=== PATIENT | female | born 1945 | race Caucasian/White ===

== ENCOUNTER 2020-04-14 09:56 | Outpatient (CLI) | payer MEDICARE, SELFPAY ==
--- NOTE | ~2020-04-14 | MM_ITS ---
EXAMINATION: MM screening [facility] BI w guillermo HISTORY: Screening mammogram TECHNIQUE: Craniocaudal and mediolateral oblique 3-D tomosynthesis images were obtained and synthetic 2-D images were generated. CAD analysis was submitted and interpreted. COMPARISON: The , 04/10/2018, 04/11/2017 BREAST PARENCHYMAL COMPOSITION: There are scattered areas of fibroglandular density. FINDINGS: There is no evidence of suspicious mass, calcification, or architectural distortion to sugg est malignancy in either breast. There has been no suspicious interval change. IMPRESSION: 1. No mammographic evidence of malignancy. 2. Recommend routine screening mammography in one year. BI-RADS Category 1: Negative Reviewed, dictated and finalized at location A.
== END 2020-04-14 09:57 | disposition home or self-care (01) ==
PROVIDERS: PCP Family Medicine; Visit Provider Obstetrics & Gynecology
DX: Z12.31 Encounter for screening mammogram for malignant neoplasm of breast (principal)
CPT/HCPCS: 77063; 77067

== ENCOUNTER 2021-04-18 09:30 | Outpatient (CLI) | payer MEDICARE, SELFPAY ==
--- NOTE | ~2021-04-18 | MM_ITS ---
EXAMINATION: MM screening [facility] BI w guillermo HISTORY: Screening TECHNIQUE: Craniocaudal and mediolateral oblique 3-D tomosynthesis images were obtained and synthetic 2-D images were generated. CAD analysis was submitted and interpreted. COMPARISON: Comparison to multiple prior studies sequentially, with oldest reviewed study dated 04/03. BREAST PARENCHYMAL COMPOSITION: There are scattered areas of fibroglandular density. FINDINGS: There is no evidence of suspicious mass, calcification, or architectural distortion to sugg est malignancy in either breast. There has been no suspicious interval change. IMPRESSION: 1. No mammographic evidence of malignancy. 2. Recommend routine screening mammography in one year. BI-RADS Category 1: Negative Reviewed, dictated and finalized at location A.
== END 2021-04-18 09:31 | disposition home or self-care (01) ==
PROVIDERS: PCP Physician Assistant; Visit Provider Obstetrics & Gynecology
DX: Z12.31 Encounter for screening mammogram for malignant neoplasm of breast (principal)
CPT/HCPCS: 77063; 77067

== ENCOUNTER 2022-06-21 08:15 | Outpatient (CLI) | payer MEDICARE, SELFPAY ==
--- NOTE | ~2022-06-21 | MM_ITS ---
EXAMINATION: MM screening [facility] w guillermo HISTORY: Screening TECHNIQUE: Craniocaudal and mediolateral oblique 3-D tomosynthesis images were obtained and synthetic 2-D images were generated. CAD analysis was submitted and interpreted. COMPARISON: Comparison to multiple prior studies sequentially, with oldest reviewed study dated 04/09. BREAST PARENCHYMAL COMPOSITION: There are scattered areas of fibroglandular density. FINDINGS: There is no evidence of suspicious mass, calcification, or architectural distortion to sugg est malignancy in either breast. There has been no suspicious interval change. IMPRESSION: 1. No mammographic evidence of malignancy. 2. Recommend routine screening mammography in one year. BI-RADS Category 1: Negative Reviewed, dictated and finalized at location A.
== END 2022-06-21 08:16 | disposition home or self-care (01) ==
PROVIDERS: PCP Family Medicine; Visit Provider Obstetrics & Gynecology
DX: Z12.31 Encounter for screening mammogram for malignant neoplasm of breast (principal)
CPT/HCPCS: 77063; 77067

== ENCOUNTER 2022-08-08 01:31 | Day surgery (SDC) | payer MEDICARE, SELFPAY ==
[2022-07-31 14:19] VITALS: BMI 34.4
--- NOTE | 2022-08-07 15:24 | PM.HPGS ---
History of Present Illness History of Present Illness Consent: Risks, benefits, and alternatives have been discussed and questions answered. Patient agrees to proceed with procedure. Chief complaint: Positive cologuard Narrative: Viry Lyons is a 76 year old female referred for colon cancer screening. She had a normal examination in 2002. It appears that a scheduled colonoscopy about 6 years ago was canceled, as she has been found to be in atrial fibrillation that morning. Review of Systems Review of Systems: All systems reviewed & are unremarkable except as noted in HPI and below PMFSH Past Medical History Medical History Afib History of cardioversion History of pacemaker Hyperlipidemia Hypertension Iron deficiency Vitamin B12 deficiency Surgical History Surgical History H/O prior ablation treatment History of appendectomy History of total knee replacement (TKR) Family History Family History Mother Hypertension Cerebrovascular accident Family history of pancreatic cancer Family history of primary malignant neoplasm of liver Father Acute myocardial infarction Social History Social History Smoking status: Never smoker Second hand tobacco smoke exposure: No Alcohol intake: current Drinks per week: 7 Alcohol use details: WINE Substance use: never Substance use type: does not use Living arrangements: with family Gender identity (if verbalized by the patient): Female Spiritual care concerns: No Agree to blood products: Yes Meds Home Medications and Allergies Home Medications Medication Instructions Recorded Confirmed Type cyanocobalamin (vitamin B-12) 1,000 mcg PO DAILY 07/14/19 07/31/22 History 1,000 mcg tablet rivaroxaban 20 mg tablet (Xarelto) 20 mg PO QPM 07/14/19 07/31/22 History metoprolol tartrate 25 mg tablet 25 mg PO BID 10/27/20 07/31/22 History ezetimibe 10 mg tablet (Zetia) 10 mg PO DAILY #90 tabs 05/07/22 07/31/22 Rx Calcium 600 + D(3) 1 tab-cap PO DAILY 07/31/22 07/31/22 History Juice Plus 1 dose PO DAILY 07/31/22 07/31/22 History lisinopril 40 mg tablet 40 mg PO DAILY 07/31/22 07/31/22 History Allergies Allergy/AdvReac Type Severity Reaction Status Date / Time No Known Allergies Allergy Verified 08/08/22 09:44 Exam Resp: Auscultation: clear to auscultation bilaterally Cardio: Rate: regular rate Rhythm: regular rhythm GI: GI Palp: Yes Soft to palpation and No Tenderness to palpation present (GI) Assessment and Plan Assessment and plan (1) Colon cancer screening: Code(s): Z12.11 - Encounter for screening for malignant neoplasm of colon Status: Acute Assessment and Plan: Colonoscopy with possible biopsy or polypectomy or cautery or injection of substances.
[2022-08-08 09:48] VITALS: BP 160/85; PULSE 85; RESP 20; TEMP 36.1; O2SAT 98; BMI 32.8
[2022-08-08] MEDS: LACTATED RINGERS 1,000 ML 150 ML IV CONT (09:51)
--- NOTE | 2022-08-08 10:03 | WPDANESEPPF ---
Anes - Initial Pre Proc Eval Procedure: Operation Date: 08/08/22 11:00 Proposed Procedures p Colonoscopy - Hudson Denis MD Date/Time: 08/08/22 10:03 Surgeon: Hudson Denis MD Pre Op Diagnosis: Positive cologuard Patient Data Age: 76 Gender: F Height: 1.63 m Weight: 86.7 kg Last Vital Signs Temp 36.1 C L 08/08/22 09:48 Pulse 85 08/08/22 09:48 Resp 20 08/08/22 09:48 BP 160/85 H 08/08/22 09:48 Pulse Ox 98 08/08/22 09:48 O2 Del Method Room Air 08/08/22 09:48 Allergies Allergy/AdvReac Type Severity Reaction Status Date / Time No Known Allergies Allergy Verified 08/08/22 09:44 Home Medications Medication Instructions Recorded Confirmed Type cyanocobalamin (vitamin B-12) 1,000 mcg PO DAILY 07/14/19 07/31/22 History 1,000 mcg tablet rivaroxaban 20 mg tablet (Xarelto) 20 mg PO QPM 07/14/19 07/31/22 History metoprolol tartrate 25 mg tablet 25 mg PO BID 10/27/20 07/31/22 History ezetimibe 10 mg tablet (Zetia) 10 mg PO DAILY #90 tabs 05/07/22 07/31/22 Rx Calcium 600 + D(3) 1 tab-cap PO DAILY 07/31/22 07/31/22 History Juice Plus 1 dose PO DAILY 07/31/22 07/31/22 History lisinopril 40 mg tablet 40 mg PO DAILY 07/31/22 07/31/22 History Patient hx anesthesia problems: none Family hx anesthesia problems: none Results Review: All pre-operative results and documents have been reviewed as part of the pre-operative evaluation. [facility] Past Medical History Medical History Afib History of cardioversion History of pacemaker Hyperlipidemia Hypertension Iron deficiency Vitamin B12 deficiency Surgical History Surgical History H/O prior ablation treatment History of appendectomy History of total knee replacement (TKR) Family History Family History Mother Hypertension Cerebrovascular accident Family history of pancreatic cancer Family history of primary malignant neoplasm of liver Father Acute myocardial infarction Social History Social History Smoking status: Never smoker Second hand tobacco smoke exposure: No Alcohol intake: current Drinks per week: 7 Alcohol use details: WINE Substance use: never Substance use type: does not use Living arrangements: with family Gender identity (if verbalized by the patient): Female Spiritual care concerns: No Agree to blood products: Yes Anes - Eval Final PreProcedure Day of Procedure 08/08/22 10:03 Patient weight: obese Heart: regular rate and rhythm Lungs: clear to auscultation Airway: Mallampati scale class II Neurological: other (alert) Last oral intake: >/= 8 hours ASA classification: III Emergent: no Anesthetic plan: proceed Anesthesia type and monitoring: general GIVS and standard monitoring Results Review: All pre-operative results and documents have been reviewed as part of the pre-operative evaluation. Informed Consent: The patient's anesthetic plan and its attendant risks and benefits were discussed with the patient/family/POA. Questions were solicited and answers provided to the satisfaction of the patient/family/POA.
[2022-08-08 11:21] VITALS: BP 112/58; PULSE 63; RESP 18; O2SAT 90
[2022-08-08 11:31] VITALS: BP 123/57; PULSE 61; RESP 18; O2SAT 96
[2022-08-08 11:51] VITALS: BP 137/77; PULSE 60; RESP 18; O2SAT 96
== END 2022-08-08 11:50 | disposition home or self-care (01) ==
PROVIDERS: PCP Family Medicine; Visit Provider Internal Medicine Gastroenterology
PROC: 0DJD8ZZ Inspection of Lower Intestinal Tract, Via Natural or Artificial Opening Endoscopic (ICD-10-PCS; CPT 45378; principal; 2022-08-08 11:00)
DX: Z12.11 Encounter for screening for malignant neoplasm of colon (principal); R19.5 Other fecal abnormalities; I10 Essential (primary) hypertension; E66.9 Obesity, unspecified; Z68.32 Body mass index [BMI] 32.0-32.9, adult
CPT/HCPCS: G0121; J2704; J7120

== ENCOUNTER 2022-09-01 14:08 | Emergency (ER) | payer MEDICARE, SELFPAY ==
--- NOTE | ~2022-09-01 | XR_ITS ---
EXAMINATION: XR knee LT 2V INDICATION: Left knee pain TECHNIQUE: Two views of the left knee are obtained. COMPARISON: None available FINDINGS: There are changes of left knee arthroplasty. There is an acute, traumatic, closed, oblique fracture of the distal femur just above the arthroplasty. The distal fracture fragment medially displ aced approximately 1.5 cm. There are 70 degrees of posterior angulation at the fracture site. A small knee joint effusion is present. IMPRESSION: 1. Acute oblique fracture of the distal femur just above the knee arthroplasty with medial displaceme nt of the distal fracture fragments and posterior angulation at the fracture site. Reviewed, dictated and finalized at location F. TY HUNTER IMPRESSION: 1. Acute oblique fracture of the distal femur just above the knee arthroplasty with medial displacement of the distal fracture fragments and posterior angulat ion at the fracture site.
--- NOTE | ~2022-09-01 | XR_ITS ---
EXAMINATION: XR femur LT min 2V INDICATION: Left leg pain TECHNIQUE: Two views of the left femur are obtained on four radiographs. COMPARISON: None available FINDINGS: There are changes of total knee arthroplasty. There is an oblique fracture of the distal fe moral shaft just above the arthroplasty. The distal fracture fragments are medially displaced approxi mately 15 mm. A knee joint effusion is present. There are 17 degrees of posterior angulation at the f racture site. Alignment of the hip is normal. IMPRESSION: 1. Acute oblique fracture of the distal femur just above the level of the arthroplasty with medial di splacement of the distal fracture fragments and posterior angulation at the fracture site. Reviewed, dictated and finalized at location F. TANCE ABUSE SPECIALIST IMPRESSION: 1. Acute oblique fracture of the distal femur just above the level of the arthr oplasty with medial displacement of the distal fracture fragments and posterior angulation at the fracture site.
[2022-09-01 13:42] VITALS: BP 177/58; PULSE 65; RESP 16; TEMP 37; O2SAT 100
--- NOTE | 2022-09-01 14:31 | ED.FALL ---
HPI - Fall General Chief Complaint: Fall Stated Complaint: FALL/ LLE PAIN Time Seen by Provider: 09/01/22 15:33 Source: patient and EMS Mode of arrival: EMS Limitations: no limitations History of Present Illness HPI Narrative: Patient is a 76-year-old female who presents the ED with report of left knee pain s/p fall. Patient reports she slipped on water in her bathroom and fell directly onto her left knee. She complained of significant pain to her left knee since then. She was unable to get off the ground or ambulate due to pain. EMS was called. Patient was given 4 mg morphine en route to the ED. Patient denies any other injuries. Denies head injury, LOC. Denies numbness, tingling. Patient has a history of previous knee replacements, both of which were performed > 15 yrs ago by retired or relocated orthopedic specialists. Patient is on Xarelto due to history of atrial fibrillation. She also has a pacemaker. Related Data Home Medications Medication Instructions Recorded Confirmed cyanocobalamin (vitamin B-12) 1,000 mcg PO DAILY 07/14/19 07/31/22 1,000 mcg tablet rivaroxaban 20 mg tablet (Xarelto) 20 mg PO QPM 07/14/19 07/31/22 metoprolol tartrate 25 mg tablet 25 mg PO BID 10/27/20 07/31/22 Calcium 600 + D(3) 1 tab-cap PO DAILY 07/31/22 07/31/22 Juice Plus 1 dose PO DAILY 07/31/22 07/31/22 lisinopril 40 mg tablet 40 mg PO DAILY 07/31/22 07/31/22 Allergies Allergy/AdvReac Type Severity Reaction Status Date / Time No Known Allergies Allergy Verified 09/01/22 13:45 Review of Systems Review of Systems: CONSTITUTIONAL: Denies fever, chills, or sweats. CARDIOVASCULAR: Denies chest pain. RESPIRATORY: Denies dyspnea. GASTROINTESTINAL: Denies abdominal pain, nausea, vomiting. MUSCULOSKELETAL: See HPI. NEUROLOGIC: Denies HI, LOC, headache, numbness, or weakness. All systems reviewed & are unremarkable except as noted in HPI and below PMFSH Past Medical History Medical History Afib History of cardioversion History of pacemaker Hyperlipidemia Hypertension Iron deficiency Vitamin B12 deficiency Surgical History Surgical History H/O prior ablation treatment History of appendectomy History of total knee replacement (TKR) Family History Family History Mother Hypertension Cerebrovascular accident Family history of pancreatic cancer Family history of primary malignant neoplasm of liver Father Acute myocardial infarction Social History Social History Smoking status: Never smoker Second hand tobacco smoke exposure: No Alcohol intake: current Drinks per week: 7 Alcohol use details: WINE Substance use: never Substance use type: does not use Gender identity (if verbalized by the patient): Female Spiritual care concerns: No Agree to blood products: Yes Exam Narrative: GENERAL: Well appearing, well-nourished, non-toxic, in no acute distress. HEAD: Normocephalic, atraumatic. NECK: Supple. No adenopathy, no masses. RESPIRATORY: Airway patent, respirations nonlabored. Clear to auscultation bilaterally, no rales, rhonchi, wheezing. CARDIOVASCULAR: Regular rate and rhythm without murmurs, rubs, or gallops. Pedal pulses 2+ and equal bilaterally. ABDOMINAL: Soft, nontender, nondistended, no hepatosplenomegaly. Normoactive BS. MUSCULOSKELETAL: Limited ROM of left lower extremity due to pain. Tenderness over distal femur, diffuse left knee joint. Mild amount of swelling present. Distal sensation intact. Good capillary refill. SKIN: Warm, dry, normal color. No rashes. NEURO: A&O X3. Speech clear. Cranial nerves II-XII grossly intact. No ataxic movements. PSYCHIATRIC: Appropriate mood and affect. Normal interaction. Course Consultations Consultation
--- NOTE | 2022-09-01 14:52 | ECG_ITS ---
Measurements Intervals [place] Rate: 59 P: W[place]: 0 QRS: 135 QRSD: 115 T: -28 QT: 468 QTc: 467 Interpretive Statements ELECTRONIC VENTRICULAR PACEMAKER BASELINE ARTIFACT- I, II, III, AVR, AVL, AVF, V1-V3 NO FURTHER INTERPRETATION IS POSSIBLE ATYPICAL ECG NO PREVIOUS ECG AVAILABLE FOR COMPARISON Electronically Signed On 09-01-2022 16:13:34 [employer] APPELLATE LAW CLERK by Aman Meier D.O.
[2022-09-01 15:24] LABS: Basophils Absolute Auto 0.1 K/mm3 (0.0-0.1); Basophils Percent Auto 0.5 % (0.2-1.2); Eosinophils Absolute Auto 0.1 K/mm3 (0-0.3); Eosinophils Percent Auto 0.8 % (0-4.4); Hematocrit 41.9 % (37.0-47.0); Hemoglobin 13.5 g/dL (12.0-15.0); Immature Granulocyte Absolute 0.05 K/mm3 (0.00-0.031); Immature Granulocyte Percent A 0.5 % (0-0.5); Lymphocytes Absolute Auto 0.73 K/mm3 (0.9-3.2); Lymphocytes Percent Auto 6.8 % (18.3-44.2); Mean Corpuscular HGB Conc 32.2 g/dl (32-36); Mean Corpuscular Hemoglobin 26.9 pg (26-34); Mean Corpuscular Volume 83.6 fl (80-100); Mean Platelet Volume 11.1 fl (7.4-10.4); Monocytes Absolute Auto 0.5 K/mm3 (0.1-0.6); Neutrophils Absolute Auto 9.3 K/mm3 (1.3-6.7); Neutrophils Percent Auto 86.4 % (45.5-73.1); Platelet Count Result 243 k/mm3 (150-375); Red Blood Count 5.01 M/mm3 (4.2-5.4); Red Cell Distribution Width 13.7 % (11.5-14.5); White Blood Count 10.8 K/mm3 (4.5-10.0)
[2022-09-01 15:32] LABS: Alanine Aminotransferase 18 U/L (6-35); Albumin Level 4.4 g/dL (3.5-5.1); Alkaline Phosphatase 141 U/L (38-126); Anion Gap 8 mmol/L (8-16); Aspartate Amino Transferase 24 U/L (14-36); Bilirubin,Total 1.2 mg/dL (0.2-1.3); Blood Urea Nitrogen 17 mg/dL (7-17); Calcium 8.9 mg/dL (8.4-10.2); Carbon Dioxide 23 mmol/L (22-30); Chloride 105 mmol/L (98-107); Estimated CRCL calculation 76 ml/min; Estimated Glomerular Filt Rate > 60; Glucose 115 mg/dL (65-110); Sodium 136 mmol/L (137-145)
[2022-09-01 15:34] LABS: INR 1.3; Prothrombin Time 15.4 Seconds (11.1-14.7)
[2022-09-01 15:35] LABS: Partial Thromboplastin Time 28.1 SECONDS (22.3-36.8)
[2022-09-01 15:54] VITALS: BP 168/86; PULSE 70; RESP 16; O2SAT 98
[2022-09-01] MEDS: MORPHINE SULFATE (*CRX) 4 MG/ML INJ IV PUSH (15:58)
[2022-09-01] MEDS: ONDANSETRON INJ 4 MG/2 ML VIAL IV PUSH (15:58)
== END 2022-09-01 16:36 | disposition short-term general hospital (02) ==
PROVIDERS: Physician Assistant; Emergency Provider Emergency Medicine; PCP Family Medicine
DX: S72.492A Other fracture of lower end of left femur, initial encounter for closed fracture (principal); M97.12XA Periprosthetic fracture around internal prosthetic left knee joint, initial encounter; I48.91 Unspecified atrial fibrillation; E78.5 Hyperlipidemia, unspecified; I10 Essential (primary) hypertension; E61.1 Iron deficiency; E53.8 Deficiency of other specified B group vitamins; Z95.0 Presence of cardiac pacemaker; Z96.653 Presence of artificial knee joint, bilateral; Z79.01 Long term (current) use of anticoagulants; W01.0XXA Fall on same level from slipping, tripping and stumbling without subsequent striking against object, initial encounter
CPT/HCPCS: 36415; 73552; 73560; 80053; 85025; 85610; 85730; 93005; 96374; 96375; 99285; J2270; J2405

== ENCOUNTER 2023-06-24 08:17 | Outpatient (CLI) | payer MEDICARE, SELFPAY ==
--- NOTE | ~2023-06-24 | MM_ITS ---
EXAMINATION: MM screening [facility] w guillermo HISTORY: Screening TECHNIQUE: Craniocaudal and mediolateral oblique 3-D tomosynthesis images were obtained and synthetic 2-D images were generated. CAD analysis was submitted and interpreted. COMPARISON: Comparison to multiple prior studies sequentially, with oldest reviewed study dated 04/10. BREAST PARENCHYMAL COMPOSITION: There are scattered areas of fibroglandular density. FINDINGS: There is no evidence of suspicious mass, calcification, or architectural distortion to sugg est malignancy in either breast. There has been no suspicious interval change. IMPRESSION: 1. No mammographic evidence of malignancy. 2. Recommend routine screening mammography in one year. BI-RADS Category 1: Negative Reviewed, dictated and finalized at location A. ORT GUIDE
== END 2023-06-24 08:18 | disposition home or self-care (01) ==
PROVIDERS: PCP Family Medicine; Visit Provider Family Medicine
DX: Z12.31 Encounter for screening mammogram for malignant neoplasm of breast (principal)
CPT/HCPCS: 77063; 77067

== ENCOUNTER 2023-09-24 18:03 | Emergency (ER) | payer MEDICARE, SELFPAY ==
[2023-09-24 18:18] VITALS: BP 170/76; PULSE 67; RESP 20; TEMP 36.2; O2SAT 100
--- NOTE | 2023-09-24 19:30 | ED.GENADULT ---
HPI - General Adult General Chief complaint: Ear Stated complaint: right ear pain Time Seen by Provider: 09/24/23 19:30 Source: patient, RN notes reviewed and old records reviewed Mode of arrival: ambulatory Limitations: no limitations History of Present Illness HPI narrative: 77-year-old female presents to the [facility] with complaints of right ear pain since Saturday or Saturday. Reports taking Tylenol. Wears hearing aids but due to the discomfort unable to put them in Onset (ago): day(s) (2-3) Treatments prior to arrival: other (Tylenol) Related Data Home Medications Medication Instructions Recorded Confirmed cyanocobalamin (vitamin B-12) 1,000 mcg PO DAILY 07/14/19 09/24/23 1,000 mcg tablet rivaroxaban 20 mg tablet (Xarelto) 20 mg PO QPM 07/14/19 09/24/23 metoprolol tartrate 25 mg tablet 25 mg PO BID 10/27/20 09/24/23 Calcium 600 + D(3) 1 tab-cap PO DAILY 07/31/22 09/24/23 Allergies Allergy/AdvReac Type Severity Reaction Status Date / Time No Known Allergies Allergy Verified 09/24/23 19:02 Review of Systems Review of Systems: All systems reviewed & are unremarkable except as noted in HPI and below Constitutional: Constitutional: Reports no additional constitutional complaints Eyes: Eyes: Reports no additional eye complaints ENT: Reports as per HPI and Reports otalgia Cardiovascular: Cardiovascular: Reports no additional cardiovascular complaints, Denies chest pain and Denies dyspnea Respiratory: Respiratory: Reports no additional respiratory complaints, Denies chest congestion, Denies cough and Denies dyspnea Gastrointestinal: Gastrointestinal: Reports no additional gastrointestinal complaints, Denies abdominal pain, Denies nausea and Denies vomiting Musculoskeletal: Musculoskeletal: Reports no additional musculoskeletal complaints Integumentary/Breasts: Skin/Breast: Reports system reviewed and no additional complaints, except as docu Neurologic: Reports system reviewed and no additional complaints, except as documented Psychiatric: Psychiatric: Reports no additional psychiatric complaints Allergic/Immunologic: Allergic/Immunologic: Reports no additional allergic/immunologic complaints PMFSH Past Medical History Medical History Afib Femur fracture, left History of cardioversion History of pacemaker Hyperlipidemia Hypertension Iron deficiency Vitamin B12 deficiency Surgical History Surgical History H/O prior ablation treatment History of appendectomy History of total knee replacement (TKR) Family History Family History Mother Hypertension Cerebrovascular accident Family history of pancreatic cancer Family history of primary malignant neoplasm of liver Father Acute myocardial infarction Social History Social History Smoking status: Never smoker Second hand tobacco smoke exposure: No Alcohol intake: current Drinks per week: 7 Alcohol use details: WINE Substance use: never Substance use type: does not use Living arrangements: with family Occupation/Education: retired Gender identity (if verbalized by the patient): Female Spiritual care concerns: No Agree to blood products: Yes Comments At the time of my signature, I reviewed and agree with the nursing past medical, surgical, social, and family history. There is no relevant family history pertinent to the patient complaint. Exam Const: General: cooperative, healthy appearing, comfortable, no acute distress, well developed, alert and well nourished Nutritional Appearance: well nourished Orientation/consciousness: patient oriented x3 Limitations: no limitations HENMT: Head: normal to inspection Ears: hearing grossly normal bilaterally, external ears normal, TM's normal bilate
== END 2023-09-24 19:43 | disposition home or self-care (01) ==
PROVIDERS: Emergency Provider Nurse Practitioner; PCP Family Medicine
DX: S00.411A Abrasion of right ear, initial encounter (principal); E78.5 Hyperlipidemia, unspecified; I10 Essential (primary) hypertension; I48.91 Unspecified atrial fibrillation; Z79.01 Long term (current) use of anticoagulants; X58.XXXA Exposure to other specified factors, initial encounter
CPT/HCPCS: 99213; G0463

== ENCOUNTER 2023-11-11 15:00 | Outpatient (CLI) | payer MEDICARE, SELFPAY ==
--- NOTE | ~2023-11-11 | DEXA_ITS ---
Bone Density Report Name: LAUREN STANLEY Age: 78 Sex: Female Ethnicity: White Date of : 1945 Indication: postmenopausal; screening for osteoporosis; height loss; Referring Provider: JEREMI CORDOBA Study: Bone densitometry was performed. Exam Date: November 11, 2023 Accession number: [id number] Bone Density: Region BMD T-score Z-score Classification AP Spine(L1-L4) 1.016 -0.3 2.2 Normal Femoral Neck (Right) 0.704 -1.3 0.8 Osteopenia Total Hip (Right) 0.821 -1.0 0.8 Normal World Health Organization criteria for BMD impression classify patients as: Normal (T-score at or above -1.0), Osteopenia (T-score between -1.0 and -2.5), or Osteoporosis (T-score at or below -2.5). 10-year Fracture Risk(1): Major Osteoporotic Fracture 11% Hip Fracture 1.9% Reported Risk Factors: [place] (), Neck BMD=0.704, BMI=32.9 (1) FRAX(R) Version 3.08. Fracture probability calculated for an untreated patient. Fracture probability may be lower if the patient has received treatment. Clinical Information Provided by Patient: Has used the following medications: Vitamin D, Calcium Patient maximum height was 64 Menopause Age: 47 Does not regularly consume dairy products Drinks caffeinated beverages Onset of menses at age 14 Number of children 2 Impression: The patient has low bone mass, based on the Right Femoral Neck T-score. The patient has an estimated ten-year risk of hip fracture of 1.9% and an estimated ten-year risk of major fracture of 11%, based on the WHO FRAX algorithm. Discussion: BONE DENSITY IS LOW AT ONE OR MORE SKELETAL SITES. This patient's lowest T-score is low at one or more skeletal sites. It meets the World Health Organization's (WHO) criteria for ?low bone mass? (T-score between -1.0 and -2.5). The patient's 10-year risk of fracture as calculated by FRAX is less than the threshold where pharmacological therapy is recommended by the National Osteoporosis Foundation (NOF). However, all treatment decisions require clinical judgment and consideration of individual patient factors, including patient preferences, comorbidities, previous drug use, risk factors not captured in the FRAX model (e.g., frailty, falls, vitamin D deficiency, increased bone turnover, interval significant decline in bone density) and possible under or overestimation of fracture risk by FRAX. The patient should follow a healthful lifestyle (good nutrition with adequate calcium and vitamin D, and appropriate weight-bearing exercise). Follow-Up: Consider repeating this study in 2 to 3 years to reassess this patient's status, or sooner if there is some new clinical indication. Reported by: CORINE on 11/12/2023 3:28:00 PM. Reviewed, dictated and finalized at location AAdri ROSS
== END 2023-11-11 15:01 | disposition home or self-care (01) ==
LOC: ANHIMG 15:02
PROVIDERS: PCP Family Medicine; Visit Provider Physician Assistant
DX: Z78.0 Asymptomatic menopausal state (principal); M85.851 Other specified disorders of bone density and structure, right thigh
CPT/HCPCS: 77080

== ENCOUNTER 2024-06-25 07:19 | Outpatient (CLI) | payer MEDICARE, SELFPAY ==
--- NOTE | ~2024-06-25 | MM_ITS ---
EXAMINATION: MM screening [facility] w guillermo HISTORY: Screening TECHNIQUE: Craniocaudal and mediolateral oblique 3-D tomosynthesis images were obtained and synthetic 2-D images were generated. CAD analysis was submitted and interpreted. COMPARISON: Comparison to multiple prior studies sequentially, with oldest reviewed study dated 04/10. BREAST PARENCHYMAL COMPOSITION: Not dense: There are scattered areas of fibroglandular density. FINDINGS: There is no evidence of suspicious mass, calcification, or architectural distortion to sugg est malignancy in either breast. There has been no suspicious interval change. IMPRESSION: 1. No mammographic evidence of malignancy. 2. Recommend routine screening mammography in one year. BI-RADS Category 1: Negative Reviewed, dictated and finalized at location B. NOGRAPHY PROFESSOR
== END 2024-06-25 07:20 | disposition home or self-care (01) ==
LOC: ANHIMG 07:20
PROVIDERS: PCP Family Medicine; Visit Provider Family Medicine
DX: Z12.31 Encounter for screening mammogram for malignant neoplasm of breast (principal)
CPT/HCPCS: 77063; 77067

== ENCOUNTER 2025-01-12 14:28 | Observation (INO) | payer MEDICARE, SELFPAY ==
[2025-01-12] VITALS (15 sets, daily range): BP systolic 109–210; BP diastolic 51–96; PULSE 60–83; RESP 13–25; TEMP 37.2; O2SAT 81–100
--- NOTE | ~2025-01-12 | XR_ITS ---
XR chest 2V 01/12/2025 15:24 Indication: Shortness of breath and weakness Procedure: 2 view chest Comparison: 07/07/2015 Findings: Cardiomegaly. Pacemaker leads are in expected position. Mild pulmonary vascular congestion. No focal pneumonia, pleural effusion or pneumothorax. Impression: 1: Cardiomegaly with pulmonary vascular congestion. Reviewed, dictated and finalized at location A. Impression: 1: Cardiomegaly with pulmonary vascular congestion.
--- NOTE | ~2025-01-12 | CT_ITS ---
CT abdomen pelvis w con Ordering provider: Hugo Nieves MD History: 79 years Female with . poss gi bleed . Comparison: None. Technique: CT abdomen and pelvis with IV and without oral contrast. Automated exposure control and it erative reconstruction technique were employed. The dose-length product was 723.48 mGy-cm. 100 mL Omn ipaque 350 was given IV. Findings: VISUALIZED LOWER CHEST: Bilateral groundglass appearance seen in both lung bases which may indicate a telectasis versus pneumonia. Slight cardiomegaly. UPPER ABDOMINAL ORGANS: Liver: Hepatomegaly. She 3.7 cm hemangioma is seen in the left lobe of the liver. Hypodensity seen di stal to the hemangioma which may be fat infiltration. Gallbladder: Cholelithiasis. Spleen: Normal. Stomach/duodenum: Normal. Pancreas: Normal. Adrenals: Normal. Kidneys: Tiny cyst in the right kidney upper pole. Fullness of the right renal pelvis with no stones. PELVIC ORGANS: The bladder is underfilled. Retroverted uterus. BOWEL AND MESENTERY: Colon: No evidence of diverticulitis. Hyperdense material seen in the rectum on the left side of the colon which may represent blood. Colonoscopy is advised. Appendix is not demonstrated. Small Bowel: Normal. No obstruction. Peritoneum/mesentery: No free air or free fluid. No mesenteric lymphadenopathy. RETROPERITONEUM: Moderate atheromatous disease of the abdominal aorta. No retroperitoneal lymphaden opathy. MUSCULOSKELETAL: Superficial soft tissues: Anterior abdominal fat containing hernia seen in the upper abdomen. Otherwi se, The superficial soft tissues are normal. Bones: Age appropriate degenerative changes of the spine. Postoperative changes in the left femur. IMPRESSION: 1. Hepatomegaly with hemangioma of the liver. 2. Hyperdense material seen in the rectum and left side of the colon which may reflect blood or feca l material. Colonoscopy is advised. 3. No evidence of appendicitis, diverticulitis or intestinal obstruction. 4. Cholelithiasis. 5. Anterior abdominal fat containing hernia. Reviewed, dictated and finalized at location A. IMPRESSION: 1. Hepatomegaly with hemangioma of the liver. 2. Hyperdense material seen in the rectum and left side of the colon which may reflect blood or fecal material. Colonoscopy is advised. 3. No evidence of appendicitis, diverticulitis or intestinal obstruction. 4. Cholelithiasis. 5. Anterior abdominal fat containing hernia.
--- OUTSIDE RECORDS SUMMARY | 2025-01-12 14:31 | XMS_ITS | Referral Summary ---
Author Organization [facility] Address [address] [place] [address] Care Team Providers Care Shuttle Van Driver Name Role Phone Demi Gonzalez MD Primary Care Provider [phone] Encounters Date Type Department Care Team Description 12/07/2024 11:30 AM CDT Ancillary Procedure [facility] [address] [place] [address] Pacemaker (Primary Dx); CHB (complete heart block) (HCC) from Last 3 Months Allergies No known active allergies Medications ezetimibe (ZETIA) 10 mg tablet Take 1 tablet (10 mg total) by mouth daily Active lisinopriL (PRINIVIL,ZESTRI L) 40 mg tablet Take 1 tablet (40 mg total) by mouth daily Active Xarelto 20 mg tablet TAKE 1 TABLET BY MOUTH EVERY DAY 90 tablet 08/27/2024 Active Active Problems Problem Noted Date Diagnosed Date NSVT (nonsustained ventricular tachycardia) 03/20 Assessment & Plan (04/15/2023 12:14 PM CDT): Nonsustained ventricular tachycardia, lasting 6 seconds, detected by her device. Asymptomatic. I recommended that she have an echocardiogram to ensure the continued structural and functional normality of her heart. No additional therapy is necessary at this time. CHB (complete heart block) 04/15/2022 Atrial fibrillation 03/14/2021 Pacemaker 03/14/2021 Overview (03/14/2021): Medtronic Solara Quad BI-V pacemaker imp on 03/13/21 for Afib, s/p AV node ablation. Ponce Gilman Dyspnea 12/12/2018 Assessment & Plan (09/09/2019 2:07 PM TAPE LIBRARIAN): Improving with exercise No specific therapy needed Encouraged an exercise program to improve stamina and her functional capacity. Assessment & Plan (07/20/2019 2:51 PM TAPE LIBRARIAN): The differential diagnosis for dyspnea includes: - COPD - asthma - ILD - pulmonary hypertension - congestive heart failure - valvular heart disease - anemia - endocrinopathies - physical deconditioning - obesity Full PFT CT chest to exclude ILD given the interstitial infiltrates in the bases on CXR Assessment & Plan (12/12/2018 3:51 PM CDT): I recommended that the patient have an echocardiogram in order to ensure that her LV function has remained normal. The patient will follow-up with me in 6 months for an office visit and twelve- lead ECG. 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 We will continue the patient on the same dose and schedule. As long as the patient continues on this medication, an ECG should be performed at least every 6 months to monitor for toxicity. Assessment & Plan (04/04/2017 11:26 AM CDT): 12-lead ECG today does not demonstrate any changes that would prohibit continued use of sotalol. We will continue the patient on the same dose and schedule. As long as the patient continues on this medication, an ECG should be performed at least every 6 months to monitor for toxicity. S/P ablation of atrial fibrillation 02/24/2017 Anticoagulation management encounter 02/01/2017 Assessment & Plan (06/22/2020 2:10 PM TAPE LIBRARIAN): The patient has a [id number]-TWYm score of 3 (annualized risk of stroke 3%). I have therefore recommended that she remain anticoagulated for thromboprophylaxis. We will see the patient back 1 month post cardioversion. Assessment & Plan (12/15/2019 1:11 PM CDT): The patient has a [id number]-OXIs score of 3 (annualized risk of stroke 3%). I have therefore recommended that she remain anticoagulated for thromboprophylaxis. The patient will follow-up with me in 6 months for an office visit and twelve- lead ECG. Assessment & Plan (12/12/2018 3:52 PM CDT): The patient has a LYZ5OE8-HVTf score of 3 (annualized risk of stroke 3%). I have therefore recommended that she remain anticoagulated for thromboprophylaxis. Assessment & Plan (09/10/2018 2:06 PM TAPE LIBRARIAN): The patient has a MXT1MV2-SZBg score of 3 (annualized risk of stroke 3%). I have therefore recommended that she remain anticoagulated for thromboprophylaxis. The patient will follow-up with me in 6 months for an office visit and twelve- lead ECG. Assessment & Plan (08/05/2018 2:42 PM TAPE LIBRARIAN): The patient has a ADH9UW5-YRGn score of 3 (annualized risk of stroke 3%). I have therefore recommended that she remain anticoagulated for thromboprophylaxis. Assessment & Plan (03/08/2018 11:06 AM CDT): The patient has a NFY2NA5-LVCg score of 3 (annualized risk of stroke 3.2 %). I have therefore recommended that she remain anticoagulated for thromboprophylaxis. The patient will follow-up with me in 6 months for an office visit and twelve- lead ECG. Assessment & Plan (09/09/2017 12:39 PM TAPE LIBRARIAN): The patient has a NOX8EX6-VMXx score of 3 (annualized risk of stroke 3.2 %). I have therefore recommended that she remain anticoagulated for thromboprophylaxis. The patient will follow-up with me in 6 months for an office visit and twelve- lead ECG. Assessment & Plan (06/02/2017 2:56 PM CDT): The patient has a MWE0TE6-DJNv score of 3 (annualized risk of stroke 3.2 %). I have therefore recommended that she remain anticoagulated for thromboprophylaxis. The patient will follow-up with me in 6 months for an office visit and twelve- lead ECG. Assessment & Plan (04/04/2017 11:27 AM CDT): The patient has a ANQ1JE2-KKOo score of 3 (annualized risk of stroke 3.2 %). I have therefore recommended that she remain anticoagulated. The patient will follow-up with me in 3 months for an office visit and twelve- lead ECG. Assessment & Plan (02/24/2017 2:32 PM CDT): The patient has a HFK8KY5-XDTh score of 2 (annualized risk of stroke 2.2 %). I have therefore recommended that she remain anticoagulated for thromboprophylaxis. We will arrange follow-up 1 month following ablation. Assessment & Plan (02/01/2017 10:17 AM CDT): She currently remains anticoagulated with Xarelto 20 mg daily. She remains compliant with her anticoagulation. She denies any issues with bleeding or bruising. Encounter for monitoring sotalol therapy 017 Assessment & Plan (06/22/2020 2:08 PM TAPE LIBRARIAN): 12-lead ECG today does not demonstrate any changes that would prohibit continued use of sotalol. We will continue the patient on the same dose and schedule. As long as the patient continues on this medication, an ECG should be performed at least every 6 months to monitor for toxicity. Assessment & Plan (12/15/2019 1:12 PM CDT): The patient should have a 12 lead ECG when the current SARS-Cov-19 pandemic allows from a safety standpoint. For now, we will continue the patient on her same stable dose of sotalol. As long as the patient continues on this medication, an ECG should be performed at least every 6 months to monitor for toxicity. Assessment & Plan (12/12/2018 3:52 PM CDT): 12-lead ECG today does not demonstrate any changes that would prohibit continued use of sotalol. We will continue the patient on the same dose and schedule. As long as the patient continues on this medication, an ECG should be performed at least every 6 months to monitor for toxicity. Assessment & Plan (09/10/2018 2:04 PM TAPE LIBRARIAN): 12-lead ECG today does not demonstrate any changes that would prohibit continued use of sotalol. We will continue the patient on the same dose and schedule. As long as the patient continues on this medication, an ECG should be performed at least every 6 months to monitor for toxicity. Assessment & Plan (02/24/2017 2:31 PM CDT): 12-lead ECG today does not demonstrate any changes that would prohibit continued use of sotalol. We will continue the patient on the same dose and schedule. As long as the patient continues on this medication, an ECG should be performed at least every 6 months to monitor for toxicity. Assessment & Plan (02/01/2017 10:17 AM CDT): The patient's ECG today does not indicate any changes that would prohibit the use of Sotalol. As long as they remain on this medication, an ECG will be performed every 6 months for monitoring. Persistent atrial fibrillation 12/02/2015 Overview (11/23/2016): A Fib Assessment & Plan (04/16/2024 10:53 AM CDT): Longstanding persistent atrial fibrillation, rendered asymptomatic by way of pacing / AV node ablation. I will not make any changes at this time. The patient's device was interrogated and found to be functioning appropriately. No substantial changes to programming were made. The patient is [facility] in [facility], and we will continue to follow with remote monitoring when possible, and in-office device checks when necessary. The patient has a GKC8PB5-FPJe score of 3 (annualized risk of stroke 3%). I have therefore recommended continued anticoagulation for thromboprophylaxis. The patient will follow-up with me in 12 months for an office visit and twelve- lead ECG. Assessment & Plan (04/15/2023 12:14 PM CDT): Persistent atrial fibrillation, rendered asymptomatic by way of pacemaker/AV junction ablation. The patient's device was interrogated and found to be functioning appropriately. No substantial changes to programming were made. The patient is enrolled in the [facility], and we will continue to follow with remote monitoring when possible, and in-office device checks when necessary. The patient has a RVG2HH0-QYYf score of 4 (annualized risk of stroke 4%). I have therefore recommended continued anticoagulation for thromboprophylaxis. Assessment & Plan (04/15/2022 2:08 PM CDT): Persistent atrial fibrillation. 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 This has rendered her asymptomatic with regards to her atrial arrhythmia. The patient's device was interrogated and found to be functioning appropriately. No substantial changes to programming were made. The patient is enrolled in the [facility], and we will continue to follow with remote monitoring when possible, and in-office device checks when necessary. She is anticoagulated with rivaroxaban, and tolerating this medication without difficulty. The patient will follow-up with me in 12 months for an office visit and twelve- lead ECG. Assessment & Plan (06/22/2020 2:08 PM TAPE LIBRARIAN): Persistent atrial fibrillation, recurrent despite ablation and use of sotalol. I recommended that the patient undergo repeat cardioversion. I explained the risks and benefits, and she would like to proceed. My office will make the appropriate arrangements. Assessment & Plan (12/15/2019 1:10 PM CDT): The patient is 3 years status post ablation for persistent atrial fibrillation. She is maintaining sinus rhythm with the use of sotalol. We will continue to monitor and follow closely, and manage new / recurrent arrhythmia expectantly. Assessment & Plan (12/12/2018 3:51 PM CDT): The patient is doing well post ablation, and is maintaining sinus rhythm albeit with sotalol. For now, we will continue on this medication. Assessment & Plan (09/10/2018 2:04 PM TAPE LIBRARIAN): The patient is 18 months status post repeat ablation for persistent atrial fibrillation/flutter. She is 1 month status post cardioversion. The patient is maintaining sinus rhythm with sotalol. We will continue to monitor and follow closely, and manage new / recurrent arrhythmia expectantly. Assessment & Plan (08/05/2018 2:39 PM TAPE LIBRARIAN): The patient is over a year status post repeat ablation for atrial fibrillation. Unfortunately, she is presently in rapidly conducting atrial fibrillation/atypical atrial flutter. I recommended that she undergo cardioversion to sinus rhythm. She has been anticoagulated. My office will make the appropriate arrangements. Assessment & Plan (03/08/2018 11:06 AM CDT): The patient is 1 year status post ablation for persistent atrial fibrillation. She continues to maintain sinus rhythm off antiarrhythmic drug therapy. We will continue to monitor and follow closely, and manage new / recurrent arrhythmia expectantly. Assessment & Plan (09/09/2017 12:34 PM TAPE LIBRARIAN): The patient is 6 months status post ablation for persistent atrial fibrillation. She is maintaining sinus rhythm. We will continue sotalol at the time (replacing with metoprolol). We will continue to monitor and follow closely, and manage new / recurrent arrhythmia expectantly. Assessment & Plan (06/02/2017 2:53 PM CDT): The patient is status post 2 ablation procedures for persistent atrial fibrillation. Her most recent ablation was 3 months ago. She is experiencing a good response and maintained sinus rhythm. She has complained of palpitations, and I recommended that she wear an event recorder in order to determine if she is experiencing significant amounts of recurrent atrial arrhythmia. We will continue to monitor and follow closely, and manage new / recurrent arrhythmia expectantly. I will continue sotalol for now. Assessment & Plan (04/04/2017 11:26 AM CDT): The patient is 1 month status post repeat ablation for paroxysmal atrial fibrillation. She is doing well and maintaining sinus rhythm. She has experienced intermittent transient palpitations, but it is unclear if this represents recurrent atrial fibrillation or ectopy. For now, we will continue sotalol and the expectant management. Assessment & Plan (02/24/2017 2:30 PM CDT): The patient has a history of persistent atrial fibrillation. Ablation, performed over a year ago, has rendered this paroxysmal. She was initiated on sotalol at her last visit, but has continued to experience arrhythmia. She would now like to consider repeat ablation. We again discussed the rationale for atrial fibrillation ablation, including the steps involved in ablation. I discussed the risks of the procedure, including vascular injury/hematoma, myocardial injury/perforation, stroke, myocardial infarction, pulmonary vein stenosis, thermal esophageal injury, and . She would like to proceed, and my office will make the appropriate arrangements. Assessment & Plan (02/01/2017 10:17 AM CDT): She is post ablation of her persistent atrial fibrillation on 01/11/2016. An event monitor placed in July demonstrated further episodes of atrial fibrillation. She was last seen in October of 2016 at that time options were discussed with the patient include antiarrhythmic drug therapy versus repeat ablation. At that time she was interested in antiarrhythmic drug therapy. She was started on sotalol 80 mg twice daily. She reports a decrease in her episodes and prefers to stay with this treatment plan at this time. She can follow up in 6 months for an office visit and 12 lead EKG. Social History Tobacco Use Types Packs/Day Years Used Date Smoking Tobacco: Never Smokeless Tobacco: Never Tobacco Cessation:Counseling Given: Not Answered Alcohol Use Standard Drinks/Week Comments Yes 0 (1 standard drink = 0.6 oz pur e alcohol) Personal Safety Answer Date Recorded Getting School Help Needed Not on file 10/18 Comments Unknown Sex and Gender Information Value Date Recorded Sex Assigned at Not on file Legal Sex Female 3:54 AM TAPE LIBRARIAN Gender Identity Female 04/12/2021 6:26 AM CDT Sexual Orientation Straight 06/05/2019 7: 04 AM CDT Last Filed Vital Signs Vital Sign Reading Time Taken Comments Blood Pressure 142/78 04/16/2024 10:36 AM CDT Pulse 63 04/16/2024 10:36 AM CDT Temperature 36.6 C (97.9 F) 03/14/2021 8:11 AM CDT Respiratory Rate 18 03/14/2021 8:11 AM CDT Oxygen Saturation 97% 04/11/2023 9:15 AM CDT Inhaled Oxygen Concentration - - Weight 83.5 kg (184 lb) 04/16/2024 10:36 AM CDT Height 162.6 cm (5' 4) 04/16/2024 10:36 AM CDT Body Mass Index 31.58 04/16/2024 10:36 AM CDT Plan of Treatment Not on file Medical Devices Implanted Type Area Continuous Improvement Coordinator Device Identifier Shelf Expiration Date Model / Serial / Lot [employer] [id number] System 6-12fr Mvp Venous Closure Vascade - [id number] - [id number] Implanted:Qty: 1 on 08/31/2020 by William Serra MD at [facility] Collagen Left: Groin [employer] 06/15/2022 800-612C -10U / [id number] / [id number] [employer] [id number] System 6-12fr Mvp Venous Closure Vascade - [id number] - [id number] Implanted:Qty: 1 on 08/31/2020 by William Serra MD at [facility] Collagen Right: Groin [employer] 06/15/2022 800-612C -10U / [id number] / [id number] [employer] [id number] System 6-12fr Mvp Venous Closure Vascade - [id number] - [id number] Implanted:Qty: 1 on 08/31/2020 by William Serra MD at [facility] Collagen Right: Groin [employer] 06/28/2022 800-612C -10U / [id number] 111B / [id number] 111B [employer] [id number] System 6-12fr Mvp Venous Closure Vascade - [id number] - [id number] Implanted:Qty: 1 on 08/31/2020 by William Serra MD at [facility] Collagen Right: Groin [employer] 06/28/2022 800-612C -10U / [id number] 111B / [id number] [id number] Medtronic Inc [id number] Lead Attain Stability Quad Mri Surescan Lv 88mm - [id number] - [id number] Implanted:Qty: 1 on 03/13/2021 by William Serra MD at [facility] Lead Med[employer]onic Inc [id number] 12/22/2022 479 888 / [id number] / Medtronic Cardiac Rhythm Mgmt [id number] Capsurefix Novus 6.2fr 2mm 52cm Bipolar Screw In Implantable Latex Free - [id number] - [id number] Implanted:Qty: 1 on 03/13/2021 by William Serra MD at [facility] Lead Medtronic Inc [id number] 01/06/2023 507 6-52 / [id number] / Medtronic Cardiac Rhythm Mgmt [id number] Solara Mri Surescan Bluetooth 46.5x59mm Connector Hole Radiopaque - [id number] - [id number] Implanted:Qty: 1 on 03/13/2021 by William Serra MD at [facility] Pacemaker Medtronic Inc [id number] 07/16/2022 W4T R03 / [id number] / Procedures Procedure Name Priority Date/Time Associated Diagnosis Comments DEVICE CHECK - REMOTE Routine 12/07/2024 10:52 AM CDT CHB (complete heart block) (HCC) from Last 3 Months Results * DEVICE CHECK - REMOTE (12/07/2024 10:52 AM CDT) Anatomical Region Laterality Modality Other Narrative 12/15/2024 11:53 AM CDT Table formatting from the original result was not included. BiV PACEMAKER CHECK (REMOTE) Patient ID: Viry Lyons is a 79 y.o. female. This patient received a Medtronic BiV Pacemaker. They had a routine remote transmission on 12/07/2024. Device implant indications: AF, status post AV node ablation Interrogation of the patient's device demonstrates the following: Presenting EGM: Bi V paced @ 62 bpm Original Device Settings Right Ventricle Left Ventricle Sensitivity (mV) 1.2 mV N/a mV Pacemaker Outputs 2.0 V @ 0.4 ms 1.75 V @ 0.4 ms Testing Measurements Right Ventricle Left Ventricle Sensitivity (mV) 4.8 mV Not done mV Impedence (Ohms) 380 ohms 779 ohms Pace Threshold 0.75 V @ 0.4 ms 1.125 V @ 0.4 ms Pacing % 99.8 % 99.8 % Battery Status: 7.7 years to ASH Episodes last 90 days/Comments: 6 episodes classified as nonsustained VT with the longest lasting 3 seconds. Ventricular rates in the 160s to 200s. NORMAL DEVICE FUNCTION PROGRAMMED MEDICATIONS: Anti-coagulant(s): Xarelto 20 mg daily Anti-arrhythmic(s): None PLAN: 1) Medtronic BiV Pacemaker evaluation 2) Medtronic remote transmission scheduled in 3 months. 3) Programming appropriate for device settings Hortencia Jeffrey RN William Serra MD [facility] PRO CEDURES Final Result from Last 3 Months Insurance [employer] MEDICARE [facility] MEDICARE ADVANTAGE [facility] MEDICARE [facility] [place] [address] Advance Directives For more information, please contact: [phone] * Full Code (Latest Code Status on File) Date Activated Date Inactivated Comments 03/13/2021 9:08 PM 03/14/2021 3:24 PM * Full Code Date Activated Date Inactivated Comments 08/31/2020 5:59 PM 09/01/2020 2:40 PM Care Teams Shuttle Van Driver Relationship Specialty Start Date End Date Demi Gonzalez MD PCP - General Family Medicine 04/25/21
--- OUTSIDE RECORDS SUMMARY | 2025-01-12 14:31 | XMS_ITS | Encounter Summary ---
Author Organization [facility] Address [address] [place] [address] Care Team Providers Care House Furnishings Supervisor Name Role Phone Demi Gonzalez MD Primary Care Provider [phone] Encounter Details Date Type Department Care Team (Late st Contact Info) Description 01/12/2022 Lab Requisition [facility] [address] [place] [address] Christian Damico MD [address] [place] [address] Social History Tobacco Use Types Packs/Day Years Used Date Smoking Tobacco: Never Smokeless Tobacco: Never Alcohol Use Standard Drinks/Week Comments Yes 0 (1 standard drink = 0.6 oz pur e alcohol) 2 glasses Comments No Sex and Gender Information Value Date Recorded Sex Assigned at Not on file Legal Sex Female 9:23 AM CDT Gender Identity Not on file Sexual Orientation Not on file documented as of this encounter Plan of Treatment Not on file documented as of this encounter Procedures Procedure Name Priority Date/Time Associated Diagnosis Comments DERMATOPATHOLOGY Routine 01/11/2022 12:0 0 AM CDT documented in this encounter Results * DERMATOPATHOLOGY (01/11/2022 12:00 AM CDT) Case Report Dermatopathology Report Case: [id number] Authorizing Provider: Christian Damico MD Collected: 01/11/2022 12:00 AM Ordering Location: [facility] Received: 01/12/2022 04:48 PM Pathologist: Shani Salazar MD Specimen: Skin, left 5th toe 2 4:11 PM CDT DERMATOPATHOLOGY LABORATORY Final Diagnosis Specimen A. SKIN, left 5th toe: HEMORRHAGE WITHIN THE CORNIFIED LAYER (CHANGES TYPICAL OF BLOOD BLISTER) (R23.3) (see microscopic description and comment) 2 4:11 PM CDT DERMATOPATHOLOGY LABORATORY at 1611 CDT Clinical History Nevus vs MM vs blood. Path # [id number]. 2 4:11 PM CDT DERMATOPATHOLOGY LABORATORY Gross Description Specimen A: Received is one formalin filled container labeled with the patient's name and designated left 5th toe. The specimen consists of a shave biopsy measuring [id number]. Jar 0. 4:11 PM CDT DERMATOPATHOLOGY LABORATORY Microscopic Description Specimen A. SKIN, left 5th toe: Sections show degraded red cells in the cornified layer. COMMENT: Given the superficial nature of the biopsy specimen, a deeper dermal process cannot be excluded. This case was also reviewed by Dr. Hayley Pichardo who agrees with the diagnosis. 2 4:11 PM CDT DERMATOPATHOLOGY LABORATORY Disclaimer An external and internal positive and negative controls are appropriate for the histochemical, immunohistochemical and immunofluorescence stain(s) in this case (if any), except where stated explicitly. The performance characteristics of the stain(s) cited in this report were developed and its performance characteristic determined by the Dermatopathology Laboratory at [facility], directed by Dr. Jacky Morales. These tests need not be, and therefore are not, approved by the [place] Food and Drug Administration. The tests are used for clinical purposes. Billing Codes Specimen Charges Stain Charges 38032 1 2 4:11 PM CDT DERMATOPATHOLOGY LABORATORY Embedded Images 2 4:11 PM CDT DERMATOPATHOLOGY LABORATORY Pathology/Cytolog y TISSUE SPECIMEN FROM SKIN / Unknown 01/11/2022 01/12/2022 4:48 PM CDT us Christian Damico MD LAB - PATHOLOGY/CYTOLOGY ORDER MOE Final Result DERMATOPATHOLOGY LABORATORY [facility] - Department of Dermatology [facility] [address] [place] [address], [address] [phone] documented in this encounter Visit Diagnoses Not on filedocumented in this encounter Care Teams House Furnishings Supervisor Relationship Specialty Start Date End Date Demi Gonzalez MD [address] [place] [address] PCP - General 09/25/22 documented as of this encounter
--- OUTSIDE RECORDS SUMMARY | 2025-01-12 14:31 | XMS_ITS | Encounter Summary ---
Author Organization [facility] Medical Group Address [address] [facility] [address] [place] [address] Care Team Providers Care Hairpiece Stylist Name Role Phone Sandoval Reese MD Primary Care Provider + [phone] Sandoval Reese MD Primary Care Provider + [phone] Uche Bond Primary Care Provider [phone] Demi Gonzalez MD Primary Care Provider [phone] Encounter Details Date Type Department Care Team (Late st Contact Info) Description 10/18/2016 Orders Only Arrhythmia Center ProviderJaydon MD [address] [place] [id number] Social History Tobacco Use Types Packs/Day Years Used Date Smoking Tobacco: Never Alcohol Use Standard Drinks/Week Comments Yes 0 (1 standard drink = 0.6 oz pur e alcohol) Comments Unknown Sex and Gender Information Value Date Recorded Sex Assigned at Not on file Legal Sex Female 3:54 AM TOW MATE Gender Identity Female 04/12/2021 6:26 AM CDT Sexual Orientation Straight 06/05/2019 7: 04 AM CDT documented as of this encounter Plan of Treatment Not on file documented as of this encounter Procedures Procedure Name Priority Date/Time Associated Diagnosis Comments CARDIOLOGY REPORT 10/18/2016 documented in this encounter Results * CARDIOLOGY REPORT (10/18/2016) Anatomical Region Laterality Modality Other Narrative 10/18/2016 Ordered by an unspecified provider. Historical Provider [facility] DEYA VAZ Final Result documented in this encounter Visit Diagnoses Not on filedocumented in this encounter Care Teams Hairpiece Stylist Relationship Specialty Start Date End Date Sandoval Reese MD [address] [place] [address] PCP - General 11/16/16 07/23/18 Sandoval Reese MD [address] [place] [address] PCP - General 07/25/16 11/15/16 Uche Bond PA [address] [place] [address] PCP - General Physician Space Scheduler 10/28/20 04/24/21 Demi Gonzalez MD [address] [place] [address] PCP - General Family Medicine 04/25/21 documented as of this encounter
--- OUTSIDE RECORDS SUMMARY | 2025-01-12 14:31 | XMS_ITS | Encounter Summary ---
Author Organization [facility] Medical Group Address [address] [facility] [address] [place] [address] Care Team Providers Care Warp Knitter Name Role Phone Sandoval Reese MD Primary Care Provider +- [phone] Sandoval Reese MD Primary Care Provider + [phone] Uche Bond Primary Care Provider [phone] Demi Gonzalez MD Primary Care Provider [phone] Encounter Details Date Type Department Care Team (Late st Contact Info) Description 10/29/2016 Orders Only Arrhythmia Center ProviderJaydon MD [address] [place] [address] Social History Tobacco Use Types Packs/Day Years Used Date Smoking Tobacco: Never Alcohol Use Standard Drinks/Week Comments Yes 0 (1 standard drink = 0.6 oz pur e alcohol) Comments Unknown Sex and Gender Information Value Date Recorded Sex Assigned at Not on file Legal Sex Female 3:54 AM 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 Historical Provider [facility] DEYA VAZ Final Result documented in this encounter Visit Diagnoses Not on filedocumented in this encounter Care Teams Warp Knitter Relationship Specialty Start Date End Date Sandoval Reese MD [address] [place] [address] PCP - General 11/16/16 07/23/18 Sandoval Reese MD [address] [place] [address] PCP - General 07/25/16 11/15/16 Uche Bond PA [address] [place] [address] PCP - General Physician Opticianry Teacher 10/28/20 04/24/21 Demi Gonzalez MD [address] [place] [address] PCP - General Family Medicine 04/25/21 documented as of this encounter
--- OUTSIDE RECORDS SUMMARY | 2025-01-12 14:31 | XMS_ITS | Encounter Summary ---
Author Organization [facility] Medical Group Address [address] [facility] [address] [place] [address] Care Team Providers Care Rampman Name Role Phone Sandoval Reese MD Primary Care Provider +- [phone] Sandoval Reese MD Primary Care Provider + [phone] Uche Bond Primary Care Provider [phone] Demi Gonzalez MD Primary Care Provider [phone] Encounter Details Date Type Department Care Team (Late st Contact Info) Description 08/13/2016 Orders Only Arrhythmia Center ProviderJaydon MD [address] [place] [address] Social History Tobacco Use Types Packs/Day Years Used Date Smoking Tobacco: Never Alcohol Use Standard Drinks/Week Comments Yes 0 (1 standard drink = 0.6 oz pur e alcohol) Comments Unknown Sex and Gender Information Value Date Recorded Sex Assigned at Not on file Legal Sex Female 3:54 AM HONEYCOMB DECAPPER Gender Identity Female 04/12/2021 6:26 AM CDT Sexual Orientation Straight 06/05/2019 7: 04 AM CDT documented as of this encounter Plan of Treatment Not on file documented as of this encounter Procedures Procedure Name Priority Date/Time Associated Diagnosis Comments CARDIOLOGY REPORT 08/13/2016 CARDIOLOGY REPORT 08/13/2016 documented in this encounter Results * CARDIOLOGY REPORT (08/13/2016) Anatomical Region Laterality Modality Other Narrative 08/13/2016 Ordered by an unspecified provider. us Historical Provider [facility] PROCE DURES Final Result * CARDIOLOGY REPORT (08/13/2016) Anatomical Region Laterality Modality Other Narrative 08/13/2016 Ordered by an unspecified provider. Historical Provider [facility] PROCE DURES Final Result documented in this encounter Visit Diagnoses Not on filedocumented in this encounter Care Teams Rampman Relationship Specialty Start Date End Date Sandoavl Reese MD [address] [place] [address] PCP - General 11/16/16 07/23/18 Sandoval Reese MD [address] [place] [address] PCP - General 07/25/16 11/15/16 Uche Bond PA [address] [facility] [address] [place] [address] PCP - General Physician Road Patcher 10/28/20 04/24/21 Demi Gonzalez MD [address] [place] [address] PCP - General Family Medicine 04/25/21 documented as of this encounter
--- OUTSIDE RECORDS SUMMARY | 2025-01-12 14:31 | XMS_ITS | Clinical Summary ---
Author Organization [facility] Address [address] [place] [address] Care Team Providers Care Bacteriology Research Assistant Name Role Phone Demi Gonzalez MD Primary Care Provider [phone] Allergies No known active allergies Medications ezetimibe [...] 03/13/21 for Afib, s/p AV node ablation. [place] [facility] Dyspnea 12/12/2018 Assessment & Plan (09/09/2019 2:07 PM FIXING CARPENTER): Improving with exercise No specific therapy needed Encouraged an exercise program to improve stamina and her functional capacity. Assessment & Plan (07/20/2019 2:51 PM FIXING CARPENTER): The differential diagnosis for dyspnea includes: - [...] an office visit and twelve- lead ECG. manager long term care current use of antiarrhythmic drug Assessment & [...] 02/01/2017 Assessment & Plan (06/22/2020 2:10 PM FIXING CARPENTER): The patient has a WZZ8OC8-ICUf score of 3 (annualized risk of stroke 3%). I have therefore recommended that she remain anticoagulated for thromboprophylaxis. We will see the patient back 1 month post cardioversion. Assessment & Plan (12/15/2019 1:11 PM CDT): The patient has a ROR5YW5-OECn score of 3 (annualized risk of stroke 3%). I have therefore recommended that she remain anticoagulated for thromboprophylaxis. The patient will follow-up with me in 6 months for an office visit and twelve- lead ECG. Assessment & Plan (12/12/2018 3:52 PM CDT): The patient has a ZYR5EN0-STFg score of 3 (annualized risk of stroke 3%). I have therefore recommended that she remain anticoagulated for thromboprophylaxis. Assessment & Plan (09/10/2018 2:06 PM FIXING CARPENTER): The patient has a EAU2UR3-YEOm score of 3 (annualized risk of stroke 3%). I have therefore recommended that she remain anticoagulated for thromboprophylaxis. The patient will follow-up with me in 6 months for an office visit and twelve- lead ECG. Assessment & Plan (08/05/2018 2:42 PM FIXING CARPENTER): The patient has a ICN8LL3-SAUw score of 3 (annualized risk of stroke 3%). I have therefore recommended that she remain anticoagulated for thromboprophylaxis. Assessment & Plan (03/08/2018 11:06 AM CDT): The patient has a FLJ1VK0-DUUn score of 3 (annualized risk of stroke 3.2 %). I have therefore recommended that she remain anticoagulated for thromboprophylaxis. The patient will follow-up with me in 6 months for an office visit and twelve- lead ECG. Assessment & Plan (09/09/2017 12:39 PM FIXING CARPENTER): The patient has a EMJ3DS8-MFYo score of 3 (annualized risk of stroke 3.2 %). I have therefore recommended that she remain anticoagulated for thromboprophylaxis. The patient will follow-up with me in 6 months for an office visit and twelve- lead ECG. Assessment & Plan (06/02/2017 2:56 PM CDT): The patient has a TTO8XV7-CLZu score of 3 (annualized risk of stroke 3.2 %). I have therefore recommended that she remain anticoagulated for thromboprophylaxis. The patient will follow-up with me in 6 months for an office visit and twelve- lead ECG. Assessment & Plan (04/04/2017 11:27 AM CDT): The patient has a ASU4EH0-VJDo score of 3 (annualized risk of stroke 3.2 %). I have therefore recommended that she remain anticoagulated. The patient will follow-up with me in 3 months for an office visit and twelve- lead ECG. Assessment & Plan (02/24/2017 2:32 PM CDT): The patient has a RJP8FI2-MUEd score of 2 (annualized risk of stroke [...] 017 Assessment & Plan (06/22/2020 2:08 PM FIXING CARPENTER): 12-lead ECG today does not demonstrate any [...] toxicity. Assessment & Plan (09/10/2018 2:04 PM FIXING CARPENTER): 12-lead ECG today does not demonstrate any [...] checks when necessary. The patient has a FSV9GX1-ASQb score of 3 (annualized risk of stroke [...] checks when necessary. The patient has a GUA7ID6-CFMs score of 4 (annualized risk of stroke 4%). I have therefore recommended continued anticoagulation for thromboprophylaxis. Assessment & Plan (04/15/2022 2:08 PM CDT): Persistent atrial fibrillation. Now status post SHADER AND TONER-pacemaker/AV junction ablation, and doing well. This has [...] ECG. Assessment & Plan (06/22/2020 2:08 PM FIXING CARPENTER): Persistent atrial fibrillation, recurrent despite ablation and [...] medication. Assessment & Plan (09/10/2018 2:04 PM FIXING CARPENTER): The patient is 18 months status post repeat ablation for persistent atrial fibrillation/flutter. She is 1 month status post cardioversion. The patient is maintaining sinus rhythm with sotalol. We will continue to monitor and follow closely, and manage new / recurrent arrhythmia expectantly. Assessment & Plan (08/05/2018 2:39 PM FIXING CARPENTER): The patient is over a year status [...] expectantly. Assessment & Plan (09/09/2017 12:34 PM FIXING CARPENTER): The patient is 6 months status post [...] an office visit and 12 lead EKG. Encounters Date Type Department Care Team Description 12/07/2024 11:30 AM CDT Ancillary Procedure Arrhythmia Center [address] [facility] [address] [place] [id number] Pacemaker (Primary Dx); CHB (complete heart block) (HCC) from Last 3 Months Surgical History Surgery Date Site/Laterality Comments APPENDECTOMY 1994 FRACTURE SURGERY August 2022 JOINT REPLACEMENT 2003 & 2007 Medical History Medical History Date Comments Hx Other Medical knee surgery Hx Other Medical pendix removal Hyperlipidemia Hypertension Shortness of breath Atrial fibrillation (HCC) Family History Medical History Relation Name Comments Heart attack Father Myocardial infa rction; Cause of : Myocardial infarction Other Mother Vernell Stallings 1993 Unknow n; Cause of : Unknown Stroke Mother Vernell Stallings 1993 Stroke ; Relation Name Status Comments Father (Age 73) Mother Vernell Stallings 1993 Social History Tobacco Use Types Packs/Day Years [...] on file Legal Sex Female 3:54 AM FIXING CARPENTER Gender Identity Female 04/12/2021 6:26 AM CDT Sexual Orientation Straight 06/05/2019 7: 04 AM CDT Obstetrics History Last Filed Vital Signs Vital Sign Reading [...] 04/16/2024 10:36 AM CDT Plan of Treatment Health Maintenance Due Date Last Done Comments Depression Screening 1945 Hepatitis C Screening 1945 Osteoporosis Screening-Bone Density Scan 1945 Hepatitis B Screening 1965 Zoster Vaccine (2 of 3) 06/14/2011 04/19/2011 Well Visit 65+ 2012 Pneumococcal vaccine 65+ (2 of 2 - PCV) 05/27/2018 05/27/2017, 06/08/2016 DTaP/Tdap/Td Vaccine (1 - Tdap) 12/01/2021 , 04/18/2010 Fall Risk Assessment 03/14/2022 03/14/2021 Covid-19 Vaccine (4 - 2023-2 5 season) 2024 05/16/2021, 10/15/2020, 09/23/2020 Influenza Vaccine (Season Ended) 2025 05/16/2021, 05/20/2020, 05/29/2019, Additional history exists Medical Devices Implanted Type Area Retoucher Device Identifier Shelf Expiration Date Model / Serial / Lot [employer] [id number] System 6-12fr Mvp Venous Closure Vascade - [id number] - [id number] Implanted:Qty: 1 on 08/31/2020 by William Serra MD at [facility] Collagen Left: Groin [employer] 06/15/2022 800-612C -10U / [id number] / [id number] [employer] [id number] System 6-12fr Mvp Venous Closure Vascade - [id number] - [id number] Implanted:Qty: 1 on 08/31/2020 by William Serra MD at [facility] Collagen Right: Groin [employer] 06/15/2022 800-612C -10U / [id number] / [id number] [employer] [id number] System 6-12fr Mvp Venous Closure Vascade - [id number] - [id number] Implanted:Qty: 1 on 08/31/2020 by William Serra MD at [facility] Collagen Right: Groin [employer] 06/28/2022 800-612C -10U / [id number] 111B / [id number] [employer] [id number] System 6-12fr Mvp Venous Closure Vascade - [id number] - [id number] Implanted:Qty: 1 on 08/31/2020 by William Serra MD at [facility] Collagen Right: Groin [employer] 06/28/2022 800-612C -10U / [id number] 111B / [id number] [employer] [id number] Lead Attain Stability Quad Mri Surescan Lv 88mm - [id number] - [id number] Implanted:Qty: 1 on 03/13/2021 by William Serra MD at [facility] Lead [employer] [id number] 12/22/2022 479 888 / [id number] / Medtronic Cardiac Rhythm Mgmt [id number] Capsurefix Novus 6.2fr 2mm 52cm Bipolar Screw In Implantable Latex Free - [id number] - [id number] Implanted:Qty: 1 on 03/13/2021 by William Serra MD at [facility] Lead [employer] [id number] 01/06/2023 507 6-52 / [id number] / [employer] Cardiac Rhythm Mgmt [id number] Solara Mri Surescan Bluetooth 46.5x59mm Connector Hole Radiopaque - [id number] - [id number] Implanted:Qty: 1 on 03/13/2021 by William Serra MD at [facility] Pacemaker [employer] [id number] 07/16/2022 W4T R03 / [id number] / Procedures Procedure Name Priority Date/Time [...] appropriate for device settings Hortencia Jeffrey RN us William Serra MD [facility] PRO CEDURES Final Result from Last 3 Months Insurance [facility] MEDICARE UHC MEDICARE ADVANTAGE [facility] Address[id number] [place] [address] [facility] Address: [id number] [place] [id number] Advance Directives For more information, please contact: [phone] * Full Code (Latest Code Status on File) Date Activated Date Inactivated Comments 03/13/2021 9:08 PM 03/14/2021 3:24 PM * Full Code Date Activated Date Inactivated Comments 08/31/2020 5:59 PM 09/01/2020 2:40 PM Care Teams Bacteriology Research Assistant Relationship Specialty Start Date End Date Demi Gonzalez MD PCP - General Family Medicine 04/25/21
--- OUTSIDE RECORDS SUMMARY | 2025-01-12 14:31 | XMS_ITS | Clinical Summary ---
Author Organization [facility] Address [address] [place] [address] Care Team Providers Care Foreign Banknote Teller Trader Name Role Phone Demi Gonzalez MD Primary Care Provider Source Comments [facility],non-owned Affiliates and Associated Physician Practices is amultiple site organization consisting of ambulatory clinics and hospital sitesin [place], [place], [place] and [place]. This disclosure is being madepursuant to the Care Everywhere program and may not contain all information available regarding this patient. Last updated 18.[facility] Allergies No known active allergies Medications * Be aware that medications may not be up to date on this document. Alwaysverify current medications with the patient. metoprolol tartrate IR (Lopressor) 25 MG tablet 1 (one) tablet 2 times daily 2 Active lisinopril (Prinivil; Zestril) 40 MG tablet Take 1 (one) tablet by mouth once daily 2 Active ezetimibe (Zetia) 10 MG tablet Take 1 (one) tablet by mouth once daily 2 Active rivaroxaban (Xarelto) 20 MG tablet Take 1 (one) tablet by mouth daily with food Active acetaminophen (Tylenol) 500 MG tablet Take 1 (one) tablet by mouth every 4 hours as needed Maximum allowable Acetaminophen amount = 4 Grams (4000 mg) / 24 hours. 3 Active Restasis 0.05 % ophthalmic suspension 3 Active Active Problems Problem Noted Date Diagnosed Date Periprosthetic fracture of grupo bro at tip of prosthesis, initial encounter 09/01/2022 Immunizations Immunization Administration Dates Next Due INFLUENZA VACCINE, ADJUVANTE D, QUADR. (FLUAD QUADRIVALENT; 65Y+) (AIIV4) 05/14/2022 INFLUENZA VACCINE, CELL CULT URE, QUADR. (FLUCELVAX QUADRIVALENT; 6MO+), 0.5 ML (CCIIV4) 05/26/2018 INFLUENZA VACCINE, HIGH-DOSE , QUADR. (FLUZONE HIGH-DOSE QUADRIVALENT; 65Y+), 0.7 ML (HD-IIV4) 05/16/2021,05/20/2020,05/29/2019,2016 PNEUMOCOCCAL PPV VACCINE 05/27/2017,06/08/2016 TD (ADULT), 5 LF TETANUS TOX OID, ADSORBED, PF 04/18/2010 TD (AGE 9-ADULT) 11/30/2021 ZOSTER VACCINE, LIVE 04/19/2011 Social History Tobacco Use Types Packs/Day Years Used Date Smoking Tobacco: Never Smokeless Tobacco: Never Tobacco Cessation:Counseling Given: Not Answered Alcohol Use Standard Drinks/Week Comments Yes 7 (1 standard drink = 0.6 oz pure alcohol) usually a glass of wine every evening AUDIT-C Answer Date Recorded Q1: How often do you have a drink containing alcohol? Never 09/01/2022 Q2: How many drinks containi ng alcohol do you have on a typical day when you are drinking? Patient does not drink Q3: How often do you have si x or more drinks on one occasion? Never 09/01/2022 Overall Financial Resource Strain (CARDIA) Answe r Date Recorded How hard is it for you to pa y for the very basics like food, housing, medical care, and heating? Not hard at all 09/02/2022 PHQ-2 Answer Date Recorded Patient Health Questionnaire-2 Score 0 09/08/2024 [facility] [place] [facility] Occupat ional Health - Occupational Stress Questionnaire Answer Date Recorded Do you feel stress - tense, restless, nervous, or anxious, or unable to sleep at night because your mind is troubled all the time - these days? Only a little 09/02/2022 Hunger Vital Sign Answer Date Recorded Within the past 12 months, y ou worried that your food would run out before you got the money to buy more. Never true 09/02/19 23 Within the past 12 months, t he food you bought just didn't last and you didn't have money to get more. Never true 09/02/2022 PRAPARE - Transportation Answer Date Re corded In the past 12 months, has l ack of transportation kept you from medical appointments or from getting medications? No 08/19 In the past 12 months, has l ack of transportation kept you from meetings, work, or from getting things needed for daily living? No 09/02/2022 Housing Stability Vital Sign Answer Tano e Recorded In the last 12 months, was t here a time when you were not able to pay the mortgage or rent on time? No 09/02/2022 In the last 12 months, how many places have you lived? 1 09/02/2022 In the last 12 months, was t here a time when you did not have a steady place to sleep or slept in a fpc (including now)? No 09/02/2022 Comments No Sex and Gender Information Value Date Recorded Sex Assigned at Not on file Legal Sex Female 9:23 AM CDT Gender Identity Not on file Sexual Orientation Not on file Last Filed Vital Signs Vital Sign Reading Time Taken Comments Blood Pressure 140/77 12/10/2022 12:20 PM CDT Pulse 61 12/10/2022 12:20 PM CDT Temperature 36.5 C (97.7 F) 12/10/2022 11:40 AM CDT Respiratory Rate 16 12/10/2022 12:20 PM CDT Oxygen Saturation 98% 12/10/2022 12:20 PM CDT Inhaled Oxygen Concentration - - Weight 86.2 kg (190 lb) 12/10/2022 8:44 AM CDT Height 162.6 cm (5' 4) 12/10/2022 8:44 AM CDT Body Mass Index 32.61 12/10/2022 8:44 AM CDT Plan of Treatment Health Maintenance Due Date Last Done Comments BONE DENSITY TESTING 1945 HEPATITIS C SCREENING 09/27/1965 ZOSTER VACCINE (2 of 3) 06/14/2011 04/19/2011 PNEUMOCOCCAL VACCINE 50+ (2 of 2 - PCV) 05/27/2018 05/27/2017, 06/08/2016 Respiratory Syncytial Virus (RSV) Vaccine Pt: or over 60 yrs (1 - 1-dose 75+ series) 2022 COVID-19 VACCINE ( season) 2024 05/14/2022, 01/08/2022, 05/16/2021, Additional history exists MEDICARE AWV CALENDAR YEAR 2024 INFLUENZA VACCINE (Season Ended) 2025 05/14/2022, 05/16/2021, 05/20/2020, Additional history exists DTAP/TDAP/TD VACCINES (3 - Td or Tdap) 12/01/2031 11/30/2021, 04/18/2010 DEPRESSION SCREENING Completed 09/15/2024 HEPATITIS B VACCINE Aged Out No longe r eligible based on patient's age to complete this topic HIB VACCINE Aged Out No longer eligi ble based on patient's age to complete this topic HPV VACCINE Aged Out No longer eligi ble based on patient's age to complete this topic MENINGOCOCCAL (Group B) VACCINE SHARED DECISION-MAKING Aged Out No longer eligible based on patient's age to complete this topic MENINGOCOCCAL GROUPS A/C/Y/W VACCINE Aged Out No longer eligible based on patient's age to complete this topic Medical Devices Implanted Type Area Pellet Machine Operator Device Identifier Shelf Expiration Date Model / Serial / Lot Nail Im 10mm 38cm Trgn Mt-Nail Fem Rtrgd Implanted:Qty: 1 on 09/03/2022 by Richard Tam MD at [facility] Left: Femur [employer] 11/22/2030 [id number] / / [id number] Screw 5mm 70mm Lopro Intnl Hex Fem Trgn Implanted:Qty: 1 on 09/03/2022 by Richard Tam MD at [facility] Left: Femur [employer] 09/29/2025 [id number] / / [id number] Screw 5mm 45mm Lopro Intnl Hex Fem Trgn Implanted:Qty: 1 on 09/03/2022 by Richard Tam MD at [facility] Left: Femur [employer] 03/27/2029 [id number] / / [id number] Screw 5mm 57mm Lopro Intnl Hex Fem Trgn Implanted:Qty: 1 on 09/03/2022 by Richard Tam MD at [facility] Left: Femur [employer] 07/24/2031 [id number] / / [id number] Screw 5mm 35mm Lopro Intnl Hex Fem Trgn Implanted:Qty: 1 on 09/03/2022 by Richard Tam MD at [facility] Left: Femur [employer] 02/12/2032 [id number] / / [id number] Explanted Type Area Pellet Machine Operator Device Identifier Shelf Expiration Date Model / Serial / Lot Screw 5mm 75mm Lopro Intnl Hex Fem Trgn Explanted:Qty : 1 on 09/03/2022 by Richard Tam MD at [facility] Left: Femur [employer] [id number] 09/30/2028 [id number] / / [id number] [place] [address] [place] [address] [place] [address] Advance Directives * Full Code (Latest Code Status on File) Date Activated Date Inactivated Comments 12/10/2022 7:47 AM 12/10/2022 2:19 PM * Full Code Date Activated Date Inactivated Comments 09/02/2022 2:16 AM 09/19/2022 7:47 PM Care Teams Foreign Banknote Teller Trader Relationship Specialty Start Date End Date Demi Gonzalez MD [address] [place] [address] PCP - General 09/25/22
--- OUTSIDE RECORDS SUMMARY | 2025-01-12 14:31 | XMS_ITS | Encounter Summary ---
Author Organization [facility] Address [address] [place] [id number] Care Team Providers Care Material Hauler Name Role Phone Sandoval Reese MD Primary Care Provider + [phone] Sandoval Reese MD Primary Care Provider + [phone] Uche Bond Primary Care Provider [phone] Demi Gonzalez MD Primary Care Provider +[phone] Encounter Details Date Type Department Care Team (Late st Contact Info) Description 10/22/2016 Orders Only [facility] ProviderJaydon MD [address] [place] [id number] Social History Tobacco Use Types Packs/Day Years Used Date Smoking Tobacco: Never Alcohol Use Standard Drinks/Week Comments Yes 0 (1 standard drink = 0.6 oz pur e alcohol) Comments Unknown Sex and Gender Information Value Date Recorded Sex Assigned at Not on file Legal Sex Female 3:54 AM FISH TRAPPER Gender Identity Female 04/12/2021 6:26 AM CDT Sexual Orientation Straight 06/05/2019 7: 04 AM CDT documented as of this encounter Plan of Treatment Not on file documented as of this encounter Procedures Procedure Name Priority Date/Time Associated Diagnosis Comments CARDIOLOGY REPORT 10/22/2016 documented in this encounter Results * CARDIOLOGY REPORT (10/22/2016) Anatomical Region Laterality Modality Other Narrative 10/22/2016 Ordered by an unspecified provider. Historical Provider [facility] Final Result documented in this encounter Visit Diagnoses Not on filedocumented in this encounter Care Teams Material Hauler Relationship Specialty Start Date End Date Sandoval Reese MD [address] [place] [address] PCP - General 11/16/16 07/23/18 Sandoval Reese MD [address] [place] [address] PCP - General 07/25/16 11/15/16 Uche Bond PA [address] [place] [address] PCP - General Physician Senior Technical Editor 10/28/20 04/24/21 Demi Gonzalez MD [address] [place] [address] PCP - General Family Medicine 04/25/21 documented as of this encounter
--- NOTE | 2025-01-12 14:35 | ED.RECABL ---
HPI - Recheck/Abnormal Lab/Rx General Chief Complaint: Recheck/Abnormal Lab/Rx <BILLY Baer Last Filed: 01/12/25 14:41> Stated Complaint: Low hemoglobin level <BILLY Baer Last Filed: 01/12/25 14:41> Time Seen by Provider: 01/12/25 14:35 <BILLY Baer Last Filed: 01/12/25 14:41> Focused HPI: Patient is a 79 y/o female, with PMH of pacemaker, AFIB on xarelto, who presents to the ED with c/o abnormal outpatient labs. Patient reports she has been feeling short of breath - worse with exertion, weak, fatigued over the past 2 weeks. She saw her PCP last week and had outpatient labs performed. She was notified today that she was anemic and referred to the ED for further evaluation. States her hemoglobin typically in the 11 range, down to 8.1. Patient denies known hx of anemia. Denies ever having blood transfusion before. Denies hematuria, vaginal bleeding, rectal bleeding, melena, abdominal pain. Did have a minor epistaxis last week. Denies CP. GENERAL: Elderly, slightly pale appearing, and in no acute distress. HEAD: Normocephalic, atraumatic. CHEST: Clear to auscultation. ?No respiratory distress. HEART: Regular rate and rhythm.? NEURO: ?Alert and oriented x3. Patient screened in triage and initial orders placed.? ?Additional care and disposition to be based upon?diagnostic testing and treatment. <BLILY Baer Last Filed: 01/12/25 14:41> Source: patient <BILLY Baer Last Filed: 01/12/25 14:41> Mode of arrival: ambulatory <BILLY Baer Last Filed: 01/12/25 14:41> Limitations: no limitations <BILLY Baer Last Filed: 01/12/25 14:41> History of Present Illness HPI narrative: Agree with the HPI above. Patient states her last colonoscopy was 2 years ago and she has not had have any close follow-up as she had unremarkable colonoscopy according to her. No history of dark tarry stools or melena, no red blood per rectum. No vomiting. <Hugo Nieves MD - Last Filed: 01/13/25 05:59> Related Data Home Medications: Home Medications ?Medication ?Instructions ?Recorded ?Confirmed ?Last Taken ?Type cyanocobalamin (vitamin B-12) 1,000 mcg PO DAILY 07/14/19 01/13/25 08/07/22 History 1,000 mcg tablet rivaroxaban 20 mg tablet (Xarelto) 20 mg PO QPM 07/14/19 01/13/25 08/05/22 History Calcium 600 + D(3) 1 tab-cap PO DAILY 07/31/22 01/13/25 08/07/22 History clotrimazole-betamethasone 1 1 applic topical BID PRN IRRITATION 01/13/25 01/13/25 Unknown History %-0.05 % topical cream <Eden Alicea PA-C - Last Filed: 01/12/25 14:41> Allergies/Adverse Reactions: Allergies Allergy/AdvReac Type Severity Reaction Status Date / Time No Known Allergies Allergy Verified 01/12/25 14:29 <Eden Alicea PA-C - Last Filed: 01/12/25 14:41> Review of Systems Review of Systems: As reviewed above in HPI <Hugo Nieves MD - Last Filed: 01/13/25 05:59> FOR[facility]LY [facility] Past Medical History Medical History: Medical History Femur fracture, left History of pacemaker Exposure to COVID-19 virus Vitamin B12 deficiency Iron deficiency Hyperlipidemia Hypertension History of cardioversion <Eden Alicea PA-C - Last Filed: 01/12/25 14:41> Surgical History Surgical History: Surgical History History of appendectomy History of total knee replacement (TKR) H/O prior ablation treatment <Eden Alicea PA-C - Last Filed: 01/12/25 14:41> Family History Family History: Family History Mother Hypertension Cerebrovascular accident Family history of pancreatic cancer Family history of primary malignant neoplasm of liver Father Acute myocardial infarction <Eden Alicea PA-C - Last Filed: 01/12/25 14:41> Social History Social History: Social History Smoking status: Former smoker Second hand tobacco smoke exposure: No Alcohol intake: current Drinks per week: 3 Alcohol use details: WINE Substance use: never Substance use type: does not use Do You Feel Safe in your Home?: Yes Lack of Transportation: No Lack of Food: Never True Current Housing: I Have Housing Concerned About Future Housing: No Difficulty Paying Gas/Electric Bills: No Difficulty Paying for Meds: No Currently Unemployed: No Education: Master's Degree or Higher Difficulty w/ Childcare or Family Care: No Living arrangements: with family Occupation/Education: retired Gender identity (if verbalized by the patient): Female Spiritual care concerns: No Agree to blood products: Yes <Eden Alicea PA-C - Last Filed: 01/12/25 14:41> Exam Narrative: GENERAL: [Well-appearing, well-nourished, and in no acute distress.] HEAD: [Normocephalic, atraumatic.] EYES: [PERRLA and EOMI.] ENT: Nares clear, no rhinorrhea or epistaxis. Mucous membranes moist. NECK: Supple. CHEST: [Clear to auscultation. No respiratory distress.] HEART: [Regular rate and rhythm]. No murmur heard. [Normal peripheral pulses.] ABDOMEN: [Soft, nondistended], [nontender], [No rigidity or guarding] EXTREMITIES: Normal range of motion. [No edema.] SKIN: Warm, dry, no rash. NEURO: [No focal deficits]. Alert and oriented [x3.] PSYCH: [Normal mood and affect.] <Hugo Nieves MD - Last Filed: 01/13/25 05:59> Course Vital Signs Vital signs: Vital Signs Temperature 37.2 C 01/12/25 14:30 Pulse Rate 80 05/27/25 14:30 Respiratory Rate 20 01/12/25 14:30 Blood Pressure 191/53 H 01/12/25 14:30 Pulse Oximetry 100 01/12/25 14:30 Oxygen Delivery Room Air 01/12/25 14:30 Temperature 37.2 C 01/12/25 14:30 Pulse Rate 103 H 01/13/25 03:45 Respiratory Rate 17 01/13/25 03:45 Blood Pressure 156/90 H 01/13/25 03:03 Pulse Oximetry 96 01/13/25 03:45 Oxygen Delivery Room Air 01/12/25 14:30 <Eden Alicea PA-C - Last Filed: 01/12/25 14:41> Vital Signs Temperature 37.2 C 01/12/25 14:30 Pulse Rate 80 01/12/25 14:30 Respiratory Rate 20 01/12/25 14:30 Blood Pressure 191/53 H 01/12/25 14:30 Pulse Oximetry 100 01/12/25 14:30 Oxygen Delivery Room Air 01/12/25 14:30 Temperature 37.2 C 01/12/25 14:30 Pulse Rate 103 H 01/13/25 03:45 Respiratory Rate 17 01/13/25 03:45 Blood Pressure 156/90 H 01/13/25 03:03 Pulse Oximetry 96 01/13/25 03:45 Oxygen Delivery Room Air 01/12/25 14:30 <Hugo Nieves MD - Last Filed: 01/13/25 05:59> MDM - Recheck/Abnormal Lab/Rx MDM Narrative Medical decision making narrative: MSE by NAYELI in triage. <Eden Alicea PA-C - Last Filed: 01/12/25 14:41> MSE by NAYELI in triage. 79-year-old female with a history of hypertension, hyperlipidemia, atrial fibrillation on Xarelto. Patient presents to the emergency department with outpatient laboratory studies that show low hemoglobin. She states she gets 6 months laboratory studies as follow-up with her primary care provider and her last hemoglobin was around 11 in June of last year. Hemoglobin presently is 8.1 6 days ago. She states that she has been having some shortness of breath for last week but denies any fever, chills, headache, vision change, syncope, chest pain, abdominal pain, blood red blood per rectum, melena. She had negative colonoscopy 2 years ago. She has been on Xarelto for several years even longer than her colonoscopy in the history of GI bleeding to her knowledge. Patient is not any acute distress but is anxious. She has some triage vitals show hypertension in the 190-200 region but she is asymptomatic from this at this time on my examination and her repeat blood pressure and the room is 154 over 83 without any interventions so this is likely not contributing. She has a soft nontender nondistended abdomen. Considerations presently are for occult GI bleed given her Xarelto and low hemoglobin although she is not having any active GI bleed symptoms. Low iron could also be causing her anemia and might be secondary to bleeding versus other causes such as diet. Electrolyte disturbances or vitamin deficiencies also possible. Broad workup was ordered including a CBC, CMP, vitamin B12 and benign as well as iron deficiency studies. CT of the abdomen pelvis with IV contrast for active extravasation was ordered although suspicion for active GI bleed is unlikely at this juncture. Discussed with the patient at bedside during my re-evaluations that patient would likely need outpatient follow-up and referral back to her GI doctor for repeat endoscopy if this is a persistent concern assuming no acute emergencies on CT scan or other lab findings. CT scan shows hyperdense material in her left-sided colon and rectum which could be blood products especially with her iron deficiency anemia which is new. I discussed this with Dr. Andi stokes the GI doctor on-call who agreed and recommended inpatient endoscopy. Patient's laboratory studies show a hemoglobin of 7.9 which is dropped from 8.1 but her platelets are stable and she has no white count. Coagulation panel is normal. Electrolytes are largely unremarkable. Normal BUN and creatinine, normal glucose and LFTs. Iron studies show iron deficiency compatible with possible slow GI bleed in the setting for Xarelto use and acute anemia. Discussed with the hospitalist plan for admission to a telemetry monitored bed. Patient will be accepted to the hospital at this time and patient comfortable the plan for admission. <Hugo Nieves MD - Last Filed: 01/13/25 05:59> Medical Records Attestation: I reviewed the patient's medical records. <Hugo Nieves MD - Last Filed: 05/28/25 05:59> Lab Data Attestation: I reviewed the patient's lab results. <Hugo Nieves MD - Last Filed: 01/13/25 05:59> Result diagrams: 01/12/25 14:45 01/12/25 14:45 <Eden Alicea PA-C - Last Filed: 01/12/25 14:41> Labs: Lab Results 01/12/25 Range/Units 14:45 WBC 6.3 (4.5-10.0) K/mm3 RBC 3.20 L (4.2-5.4) M/mm3 Hgb 7.9 L D (12.0-15.0) g/dL Hct 25.9 L (37.0-47.0) % MCV 80.9 (80-100) fl MCH 24.7 L (26-34) pg MCHC 30.5 L (32-36) g/dl RDW 13.2 (11.5-14.5) % Plt Count 279 (150-375) k/mm3 MPV 10.8 H (7.4-10.4) fl Immature Gran % (Auto) 0.3 (0-0.5) % Neut % (Auto) 68.4 (45.5-73.1) % Lymph % (Auto) 18.7 (18.3-44.2) % [place] % (Auto) 9.2 H (2.6-8.5) % Eos % (Auto) 2.4 (0-4.4) % Baso % (Auto) 1.0 (0.2-1.2) % Lymph # (Auto) 1.18 (0.9-3.2) K/mm3 [place] # (Auto) 0.6 (0.1-0.6) K/mm3 Eos # (Auto) 0.2 (0-0.3) K/mm3 Baso # (Auto) 0.1 (0.0-0.1) K/mm3 Abs Immat Gran (auto) 0.02 (0.00-0.031) K/mm3 Absolute Neuts (auto) 4.3 (1.3-6.7) K/mm3 Absolute Nucleated RBC 0.000 (0.0-0.012) K/mm3 Nucleated RBC % 0.0 (0.0-0.2) % Absolute Retic 0.09 (0.02-0.10) 10^6/uL Percent Retic 2.66 (0.7-4.3) % Immature Retic Fraction 27.0 H (3.0-15.9) % Retic Hgb Content 19.9 L (28.2-36.6) pg PT 16.3 H (11.1-14.7) Seconds INR 1.3 APTT 25.8 (22.3-36.8) Seconds Sodium 138 (137-145) mmol/L Potassium 4.3 (3.4-5.0) mmol/L Chloride 108 H (98-107) mmol/L Carbon Dioxide 19 L (22-30) mmol/L Anion Gap 11 (4-12) mmol/L BUN 16 (7-17) mg/dL Creatinine 0.86 (0.7-1.0) mg/dL Estim Creat Clear Calc 49 ml/min Estimated GFR > 60 (59 - ) Glucose 120 H (65-110) mg/dL Calcium 9.1 (8.4-10.2) mg/dL Iron 27 L (37-170) ug/dL TIBC 480 H (261-462) ug/dL % Saturation 6 L (20-50) % Transferrin 355 (206-381) mg/dL Ferritin 8.47 L (11.1-264) ng/mL Total Bilirubin 1.3 (0.2-1.3) mg/dL AST 30 (14-36) U/L ALT 16 (6-35) U/L Alkaline Phosphatase 81 (38-126) U/L Troponin I < 0.012 (0.000-0.034) ng/mL NT-Pro-B Natriuret Pep 1300 H (19.9-100) pg/mL Total Protein 7.0 (6.3-8.2) g/dL Albumin 4.2 (3.5-5.1) g/dL Vitamin B12 917.0 (239-931) pg/mL Folate > 20.0 H (2.76->20) ng/mL Blood Type O Positive Antibody Screen Negative <Eden Alicea PA-C - Last Filed: 01/12/25 14:41> Lab Results 01/12/25 Range/Units 14:45 WBC 6.3 (4.5-10.0) K/mm3 RBC 3.20 L (4.2-5.4) M/mm3 Hgb 7.9 L D (12.0-15.0) g/dL Hct 25.9 L (37.0-47.0) % MCV 80.9 (80-100) fl MCH 24.7 L (26-34) pg MCHC 30.5 L (32-36) g/dl RDW 13.2 (11.5-14.5) % Plt Count 279 (150-375) k/mm3 MPV 10.8 H (7.4-10.4) fl Immature Gran % (Auto) 0.3 (0-0.5) % Neut % (Auto) 68.4 (45.5-73.1) % Lymph % (Auto) 18.7 (18.3-44.2) % [place] % (Auto) 9.2 H (2.6-8.5) % Eos % (Auto) 2.4 (0-4.4) % Baso % (Auto) 1.0 (0.2-1.2) % Lymph # (Auto) 1.18 (0.9-3.2) K/mm3 [place] # (Auto) 0.6 (0.1-0.6) K/mm3 Eos # (Auto) 0.2 (0-0.3) K/mm3 Baso # (Auto) 0.1 (0.0-0.1) K/mm3 Abs Immat Gran (auto) 0.02 (0.00-0.031) K/mm3 Absolute Neuts (auto) 4.3 (1.3-6.7) K/mm3 Absolute Nucleated RBC 0.000 (0.0-0.012) K/mm3 Nucleated RBC % 0.0 (0.0-0.2) % Absolute Retic 0.09 (0.02-0.10) 10^6/uL Percent Retic 2.66 (0.7-4.3) % Immature Retic Fraction 27.0 H (3.0-15.9) % Retic Hgb Content 19.9 L (28.2-36.6) pg PT 16.3 H (11.1-14.7) Seconds INR 1.3 APTT 25.8 (22.3-36.8) Seconds Sodium 138 (137-145) mmol/L Potassium 4.3 (3.4-5.0) mmol/L Chloride 108 H (98-107) mmol/L Carbon Dioxide 19 L (22-30) mmol/L Anion Gap 11 (4-12) mmol/L BUN 16 (7-17) mg/dL Creatinine 0.86 (0.7-1.0) mg/dL Estim Creat Clear Calc 49 ml/min Estimated GFR > 60 (59 - ) Glucose 120 H (65-110) mg/dL Calcium 9.1 (8.4-10.2) mg/dL Iron 27 L (37-170) ug/dL TIBC 480 H (261-462) ug/dL % Saturation 6 L (20-50) % Transferrin 355 (206-381) mg/dL Ferritin 8.47 L (11.1-264) ng/mL Total Bilirubin 1.3 (0.2-1.3) mg/dL AST 30 (14-36) U/L ALT 16 (6-35) U/L Alkaline Phosphatase 81 (38-126) U/L Troponin I < 0.012 (0.000-0.034) ng/mL NT-Pro-B Natriuret Pep 1300 H (19.9-100) pg/mL Total Protein 7.0 (6.3-8.2) g/dL Albumin 4.2 (3.5-5.1) g/dL Vitamin B12 917.0 (239-931) pg/mL Folate > 20.0 H (2.76->20) ng/mL Blood Type O Positive Antibody Screen Negative <Hugo Nieves MD - Last Filed: 01/13/25 05:59> Imaging Data Attestation: I personally reviewed and interpreted this imaging study as follows: <Hugo Nieves MD - Last Filed: 01/13/25 05:59> My impression: Impressions Chest X-Ray 01/12/25 15:26 Impression: 1: Cardiomegaly with pulmonary vascular congestion. Abdomen/Pelvis CT 01/12/25 22:41 IMPRESSION: 1. Hepatomegaly with hemangioma of the liver. 2. Hyperdense material seen in the rectum and left side of the colon which may reflect blood or fecal material. Colonoscopy is advised. 3. No evidence of appendicitis, diverticulitis or intestinal obstruction. 4. Cholelithiasis. 5. Anterior abdominal fat containing hernia. <Hugo Nieves MD - Last Filed: 01/13/25 05:59> Critical Care Time Critical Care Time Critical Care Time: Yes <Hugo Nieves MD - Last Filed: 01/13/25 05:59> Total Critical Care Time: 35 <Hugo Nieves MD - Last Filed: 01/13/25 05:59> Discharge Plan Discharge Clinical Impression: Iron deficiency anemia, Acute anemia, Chronic anticoagulation <Eden Alicea PA-C - Last Filed: 01/12/25 14:41> Patient Disposition: Still a Patient <BILLY Baer Last Filed: 01/12/25 14:41> Condition: Stable <Eden Alicea PA-C - Last Filed: 01/12/25 14:41>
--- NOTE | 2025-01-12 14:36 | ECG_ITS ---
Test Date: 2025-01-12 14:42:30 Measurements Intervals [place] Rate: 61 P: 0 MI: 0 QRS: 138 QRSD: 118 T: -29 QT: 462 QTc: 466 Interpretive Statements ELECTRONIC VENTRICULAR PACEMAKER ABNORMAL RHYTHM ECG No previous ECG available for comparison Electronically Signed On 01-12-2025 15:01:44 CDT by Marcelle Payne M.D.
--- OUTSIDE RECORDS SUMMARY | 2025-01-12 14:51 | XMS_ITS | Encounter Summary ---
Author Organization [facility] Address [address] [place] [address] Care Team Providers Care Scrap Shear Operator Name Role Phone Demi Gonzalez MD Primary Care Provider [phone] Encounter Details Date Type Department Care Team (Late st Contact Info) Description 01/12/2022 Lab Requisition [facility] [address] [place] [address] Christian Damico MD [address] [facility] [place] [address] Social History Tobacco Use Types Packs/Day Years [...] AM CDT) Case Report Dermatopathology Report Case: [id number] Authorizing Provider: Christian Damico MD Collected: 01/11/2022 12:00 AM Ordering Location: [facility] Received: 01/12/2022 04:48 PM [...] Nevus vs MM vs blood. Path # [id number]. 2 4:11 PM CDT DERMATOPATHOLOGY LABORATORY Gross Description Specimen A: Received is one formalin filled container labeled with the patient's name and designated left 5th toe. The specimen consists of a shave biopsy measuring [id number]. Jar 0. 4:11 PM CDT DERMATOPATHOLOGY LABORATORY [...] characteristic determined by the Dermatopathology Laboratory at [facility], directed by Dr. Jacky Morales. These tests need not be, and therefore are not, approved by the [place] Food and Drug Administration. The tests are used for clinical purposes. Billing Codes Specimen Charges Stain Charges 85712 1 2 4:11 PM CDT DERMATOPATHOLOGY LABORATORY Embedded Images 2 4:11 PM CDT DERMATOPATHOLOGY LABORATORY Pathology/Cytolog y TISSUE SPECIMEN FROM SKIN / Unknown 01/11/2022 01/12/2022 4:48 PM CDT us Christian Damico MD LAB - PATHOLOGY/CYTOLOGY ORDER MOE Final Result DERMATOPATHOLOGY LABORATORY [facility] - Department of Dermatology [facility] Medicine [address] [place] [address], [address] [phone] documented in this encounter Visit Diagnoses Not on filedocumented in this encounter Care Teams Scrap Shear Operator Relationship Specialty Start Date End Date Demi Gonzalez MD [address] [place] [address] PCP - General 09/25/22 documented as of this encounter
--- OUTSIDE RECORDS SUMMARY | 2025-01-12 14:51 | XMS_ITS | Encounter Summary ---
Author Organization [facility] Address [address] [facility] [address] [place] [address] Care Team Providers Care Test Architect Name Role Phone Sandoval Reese MD Primary Care Provider +- [phone] Sandoval Reese MD Primary Care Provider + [phone] Uche Bond Primary Care Provider [phone] Demi Gonzalez MD Primary Care Provider [phone] Encounter Details Date Type Department Care Team (Late st Contact Info) Description 08/13/2016 Orders Only [facility] ProviderJaydon MD [address] [place] [address] Social History Tobacco Use Types Packs/Day Years Used Date Smoking Tobacco: Never Alcohol Use Standard Drinks/Week Comments Yes 0 (1 standard drink = 0.6 oz pur e alcohol) Comments Unknown Sex and Gender Information Value Date Recorded Sex Assigned at Not on file Legal Sex Female 3:54 AM MEN'S SWIM COACH Gender Identity Female 04/12/2021 6:26 AM CDT [...] on filedocumented in this encounter Care Teams Test Architect Relationship Specialty Start Date End Date Sandoval Reese MD [address] [place] [address] PCP - General 11/16/16 07/23/18 Sandoval Reese MD [address] [place] [address] PCP - General 07/25/16 11/15/16 Uche Bond PA [address] [facility] [address] [place] [address] PCP - General Physician Kitchen And Bath Designer 10/28/20 04/24/21 Demi Gonzalez MD [address] [place] [address] PCP - General Family Medicine 04/25/21 documented as of this encounter
--- OUTSIDE RECORDS SUMMARY | 2025-01-12 14:51 | XMS_ITS | Encounter Summary ---
Author Organization [facility] Address [address] [facility] [address] [place] [address] Care Team Providers Care Tubular Stock Glass Bulb Machine Former Name Role Phone Sandoval Reese MD Primary Care Provider +- [phone] Sandoval Reese MD Primary Care Provider + [phone] Uche Bond Primary Care Provider [phone] Demi Gonzalez MD Primary Care Provider [phone] Encounter Details Date Type Department Care Team (Late st Contact Info) Description 10/29/2016 Orders Only [facility] Center ProviderJaydon MD [address] [place] [address] Social History Tobacco Use Types Packs/Day Years Used Date Smoking Tobacco: Never Alcohol Use Standard Drinks/Week Comments Yes 0 (1 standard drink = 0.6 oz pur e alcohol) Comments Unknown Sex and Gender Information Value Date Recorded Sex Assigned at Not on file Legal Sex Female 3:54 AM PCT Gender Identity Female 04/12/2021 6:26 AM CDT [...] on filedocumented in this encounter Care Teams Tubular Stock Glass Bulb Machine Former Relationship Specialty Start Date End Date Sandoval Reese MD [address] [place] [address] PCP - General 11/16/16 07/23/18 Sandoval Reese MD [address] [place] [address] PCP - General 07/25/16 11/15/16 Uche Bond PA [address] [place] [address] PCP - General Physician Communications Senior Associate 10/28/20 04/24/21 Demi Gonzalez MD [address] [place] [address] PCP - General Family Medicine 04/25/21 documented as of this encounter
--- OUTSIDE RECORDS SUMMARY | 2025-01-12 14:51 | XMS_ITS | Encounter Summary ---
Author Organization [facility] Address [address] [facility] [address] [place] [address] Care Team Providers Care Mold Press Operator Name Role Phone Sandoval Reese MD Primary Care Provider + [phone] Sandoval Reese MD Primary Care Provider + [phone] Uche Bond Primary Care Provider [phone] Demi Gonzalez MD Primary Care Provider [phone] Encounter Details Date Type Department Care Team (Late st Contact Info) Description 10/22/2016 Orders Only [facility] Center ProviderJaydon MD [address] [place] [address] Social History Tobacco Use Types Packs/Day Years Used Date Smoking Tobacco: Never Alcohol Use Standard Drinks/Week Comments Yes 0 (1 standard drink = 0.6 oz pur e alcohol) Comments Unknown Sex and Gender Information Value Date Recorded Sex Assigned at Not on file Legal Sex Female 3:54 AM STEM SHAPER Gender Identity Female 04/12/2021 6:26 AM CDT [...] on filedocumented in this encounter Care Teams Mold Press Operator Relationship Specialty Start Date End Date Sandoval Reese MD [address] [place] [address] PCP - General 11/16/16 07/23/18 Sandoval Reese MD [address] [place] [address] PCP - General 07/25/16 11/15/16 Uche Bond PA [address] [place] [address] PCP - General Physician Yarn Texturing Machine Operator 10/28/20 04/24/21 Demi Gonzalez MD [address] [place] [address] PCP - General Family Medicine 04/25/21 documented as of this encounter
--- OUTSIDE RECORDS SUMMARY | 2025-01-12 14:51 | XMS_ITS | Encounter Summary ---
Author Organization [facility] Address [address] [facility] [address] [place] [address] Care Team Providers Care Scow Captain Name Role Phone Sandoval Reese MD Primary Care Provider + [phone] Sandoval Reese MD Primary Care Provider + [phone] Uche Bond Primary Care Provider [phone] Demi Gonzalez MD Primary Care Provider [phone] Encounter Details Date Type Department Care Team (Late st Contact Info) Description 10/18/2016 Orders Only [facility] Center ProviderJaydon MD [address] [place] [address] Social History Tobacco Use Types Packs/Day Years Used Date Smoking Tobacco: Never Alcohol Use Standard Drinks/Week Comments Yes 0 (1 standard drink = 0.6 oz pur e alcohol) Comments Unknown Sex and Gender Information Value Date Recorded Sex Assigned at Not on file Legal Sex Female 3:54 AM CRITICAL CARE UNIT MANAGER Gender Identity Female 04/12/2021 6:26 AM CDT [...] on filedocumented in this encounter Care Teams Scow Captain Relationship Specialty Start Date End Date Sandoval Reese MD [address] [place] [address] PCP - General 11/16/16 07/23/18 Sandoval Reese MD [address] [place] [address] PCP - General 07/25/16 11/15/16 Uche Bond PA [address] [place] [address] PCP - General Physician Flare Breaker 10/28/20 04/24/21 Demi Gonzalez MD [address] [place] [address] PCP - General Family Medicine 04/25/21 documented as of this encounter
--- OUTSIDE RECORDS SUMMARY | 2025-01-12 14:52 | XMS_ITS | Clinical Summary ---
Author Organization [facility] Address [address] [place] [address] Care Team Providers Care Major Gifts Director Name Role Phone Demi Gonzalez MD Primary Care Provider [phone] Source Comments [facility],non-owned Affiliates and Associated Physician Practices is amultiple site organization consisting of ambulatory clinics and hospital sitesin [place], [place], [place] and [place]. This disclosure is being madepursuant to the Care Everywhere program and may not contain all information available regarding this patient. Last updated 18.[facility] Allergies No known active allergies Medications * [...] Recorded Patient Health Questionnaire-2 Score 0 09/08/2024 [facility] [place] [facility] Occupat ional Health - Occupational Stress [...] place to sleep or slept in a correction (including now)? No 09/02/2022 Comments No Sex [...] this topic Medical Devices Implanted Type Area Forming Machine Tender Device Identifier Shelf Expiration Date Model / Serial / Lot Nail Im 10mm 38cm Trgn Mt-Nail Fem Rtrgd Implanted:Qty: 1 on 09/03/2022 by Richard Tam MD at [facility] [place] Left: Femur [employer] 11/22/2030 [id number] / / [id number] Screw 5mm 70mm Lopro Intnl Hex Fem Trgn Implanted:Qty: 1 on 09/03/2022 by Richard Tam MD at [facility] Left: Femur [employer] 09/29/2025 [id number] / / [id number] Screw 5mm 45mm Lopro Intnl Hex Fem Trgn Implanted:Qty: 1 on 09/03/2022 by Richard Tam MD at [facility] Left: Femur [employer] 03/27/2029 [id number] / / [id number] Screw 5mm 57mm Lopro Intnl Hex Fem Trgn Implanted:Qty: 1 on 09/03/2022 by Richard Tam MD at [facility] [place] Left: Femur [employer] 07/24/2031 [id number] / / [id number] Screw 5mm 35mm Lopro Intnl Hex Fem Trgn Implanted:Qty: 1 on 09/03/2022 by Richard Tam MD at [facility] [place] Left: Femur [employer] 02/12/2032 [id number] / / [id number] Explanted Type Area Forming Machine Tender Device Identifier Shelf Expiration Date Model / Serial / Lot Screw 5mm 75mm Lopro Intnl Hex Fem Trgn Explanted:Qty : 1 on 09/03/2022 by Richard Tam MD at [facility] Left: Femur [employer] [id number] 09/30/2028 [id number] / / [id number] [place] [address] [address] [place] [address] Advance Directives * Full Code (Latest Code Status on File) Date Activated Date Inactivated Comments 12/10/2022 7:47 AM 12/10/2022 2:19 PM * Full Code Date Activated Date Inactivated Comments 09/02/2022 2:16 AM 09/19/2022 7:47 PM Care Teams Major Gifts Director Relationship Specialty Start Date End Date Demi Gonzalez MD [address] [place] [address] PCP - General 09/25/22
--- OUTSIDE RECORDS SUMMARY | 2025-01-12 14:52 | XMS_ITS | Clinical Summary ---
Author Organization [facility] Address [address] [place] [address] Care Team Providers Care Tip Banding Machine Operator Name Role Phone Demi Gonzalez MD Primary Care Provider [phone] Allergies No known active allergies Medications ezetimibe [...] 12/12/2018 Assessment & Plan (09/09/2019 2:07 PM APPLICATION TECHNICIAN): Improving with exercise No specific therapy needed Encouraged an exercise program to improve stamina and her functional capacity. Assessment & Plan (07/20/2019 2:51 PM APPLICATION TECHNICIAN): The differential diagnosis for dyspnea includes: - [...] an office visit and twelve- lead ECG. intermediate frame tender current use of antiarrhythmic drug Assessment & [...] 02/01/2017 Assessment & Plan (06/22/2020 2:10 PM APPLICATION TECHNICIAN): The patient has a NRG6PZ3-ZSJd score of 3 (annualized risk of stroke 3%). I have therefore recommended that she remain anticoagulated for thromboprophylaxis. We will see the patient back 1 month post cardioversion. Assessment & Plan (12/15/2019 1:11 PM CDT): The patient has a NJM7CS3-CVJz score of 3 (annualized risk of stroke 3%). I have therefore recommended that she remain anticoagulated for thromboprophylaxis. The patient will follow-up with me in 6 months for an office visit and twelve- lead ECG. Assessment & Plan (12/12/2018 3:52 PM CDT): The patient has a UDW3HF5-UDXs score of 3 (annualized risk of stroke 3%). I have therefore recommended that she remain anticoagulated for thromboprophylaxis. Assessment & Plan (09/10/2018 2:06 PM APPLICATION TECHNICIAN): The patient has a BOK9ML8-JURk score of 3 (annualized risk of stroke 3%). I have therefore recommended that she remain anticoagulated for thromboprophylaxis. The patient will follow-up with me in 6 months for an office visit and twelve- lead ECG. Assessment & Plan (08/05/2018 2:42 PM APPLICATION TECHNICIAN): The patient has a FAY6HK5-EKKt score of 3 (annualized risk of stroke 3%). I have therefore recommended that she remain anticoagulated for thromboprophylaxis. Assessment & Plan (03/08/2018 11:06 AM CDT): The patient has a ILY3RI4-USSp score of 3 (annualized risk of stroke 3.2 %). I have therefore recommended that she remain anticoagulated for thromboprophylaxis. The patient will follow-up with me in 6 months for an office visit and twelve- lead ECG. Assessment & Plan (09/09/2017 12:39 PM APPLICATION TECHNICIAN): The patient has a XBA9YY3-SJGf score of 3 (annualized risk of stroke 3.2 %). I have therefore recommended that she remain anticoagulated for thromboprophylaxis. The patient will follow-up with me in 6 months for an office visit and twelve- lead ECG. Assessment & Plan (06/02/2017 2:56 PM CDT): The patient has a ONS7EG4-AWAn score of 3 (annualized risk of stroke 3.2 %). I have therefore recommended that she remain anticoagulated for thromboprophylaxis. The patient will follow-up with me in 6 months for an office visit and twelve- lead ECG. Assessment & Plan (04/04/2017 11:27 AM CDT): The patient has a DDX5WE9-IHHw score of 3 (annualized risk of stroke 3.2 %). I have therefore recommended that she remain anticoagulated. The patient will follow-up with me in 3 months for an office visit and twelve- lead ECG. Assessment & Plan (02/24/2017 2:32 PM CDT): The patient has a DTC4FJ9-DSOn score of 2 (annualized risk of stroke [...] 017 Assessment & Plan (06/22/2020 2:08 PM APPLICATION TECHNICIAN): 12-lead ECG today does not demonstrate any [...] toxicity. Assessment & Plan (09/10/2018 2:04 PM APPLICATION TECHNICIAN): 12-lead ECG today does not demonstrate any [...] checks when necessary. The patient has a FKK8EL5-SDDx score of 3 (annualized risk of stroke [...] checks when necessary. The patient has a CUZ3NK3-ZCFr score of 4 (annualized risk of stroke 4%). I have therefore recommended continued anticoagulation for thromboprophylaxis. Assessment & Plan (04/15/2022 2:08 PM CDT): Persistent atrial fibrillation. 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 This has [...] ECG. Assessment & Plan (06/22/2020 2:08 PM APPLICATION TECHNICIAN): Persistent atrial fibrillation, recurrent despite ablation and [...] medication. Assessment & Plan (09/10/2018 2:04 PM APPLICATION TECHNICIAN): The patient is 18 months status post repeat ablation for persistent atrial fibrillation/flutter. She is 1 month status post cardioversion. The patient is maintaining sinus rhythm with sotalol. We will continue to monitor and follow closely, and manage new / recurrent arrhythmia expectantly. Assessment & Plan (08/05/2018 2:39 PM APPLICATION TECHNICIAN): The patient is over a year status [...] expectantly. Assessment & Plan (09/09/2017 12:34 PM APPLICATION TECHNICIAN): The patient is 6 months status post [...] CDT Ancillary Procedure Arrhythmia Center [address] [facility] [address] [place] [id number] Pacemaker (Primary Dx); CHB (complete heart [...] on file Legal Sex Female 3:54 AM APPLICATION TECHNICIAN Gender Identity Female 04/12/2021 6:26 AM CDT [...] history exists Medical Devices Implanted Type Area Bowling Ball Patcher Device Identifier Shelf Expiration Date Model / Serial / Lot [employer] Inc [id number] System 6-12fr Mvp Venous Closure Vascade - [id number] - [id number] Implanted:Qty: 1 on 08/31/2020 by William Serra MD at [facility] [place] Left: Groin [employer] Inc 06/15/2022 800-612C -10U / [id number] / [id number] [employer] [id number] System 6-12fr Mvp Venous Closure Vascade - [id number] - [id number] Implanted:Qty: 1 on 08/31/2020 by William Serra MD at [facility] [place] Right: Groin [employer] 06/15/2022 800-612C -10U / [id number] / [id number] [employer] Inc [id number]-[id number] System 6-12fr Mvp Venous Closure Vascade - [id number] - [id number] Implanted:Qty: 1 on 08/31/2020 by William Serra MD at [facility] [place] Right: Groin [employer] 06/28/2022 800-612C -10U / [id number] / [id number] [employer] Inc [id number] System 6-12fr Mvp Venous Closure Vascade - [id number] - [id number] Implanted:Qty: 1 on 08/31/2020 by William Serra MD at [facility] [place] Right: Groin [employer] 06/28/2022 800-612C -10U / [id number] 111B / [id number] Med[employer] Inc [id number] Lead Attain Stability Quad Mri Surescan Lv 88mm - [id number] - [id number] Implanted:Qty: 1 on 03/13/2021 by William Serra MD at [facility] Lead [employer] Inc [id number] 12/22/2022 [id number] 888 / [id number] / Medtronic Cardiac Rhythm Mgmt 5076-52 Capsurefix Novus 6.2fr 2mm 52cm Bipolar Screw In Implantable Latex Free - [id number] - [id number] Implanted:Qty: 1 on 03/13/2021 by William Serra MD at [facility] Lead [employer] Inc [id number] 01/06/2023 507 6-52 / [id number] / Medtronic Cardiac Rhythm Mgmt [id number] Solara Mri Surescan Bluetooth 46.5x59mm Connector Hole Radiopaque - [id number] - [id number] Implanted:Qty: 1 on 03/13/2021 by William Serra MD at [facility] Pacemaker [employer] Inc [id number] 07/16/2022 W4T R03 / [id number] / Procedures Procedure Name Priority Date/Time [...] Final Result from Last 3 Months Insurance [facility] MEDICARE UHC MEDICARE ADVANTAGE [facility] MEDICARE [facility] Address: [address] [place] [address] FOR[facility]LY [facility] MEDICARE [facility] MEDIC[facility] Address: [id number] [place] [phone] Advance Directives For more information, please contact: [phone] * Full Code (Latest Code Status on File) Date Activated Date Inactivated Comments 03/13/2021 9:08 PM 03/14/2021 3:24 PM * Full Code Date Activated Date Inactivated Comments 08/31/2020 5:59 PM 09/01/2020 2:40 PM Care Teams Tip Banding Machine Operator Relationship Specialty Start Date End Date Demi Gonzalez MD PCP - General Family Medicine 04/25/21
--- OUTSIDE RECORDS SUMMARY | 2025-01-12 14:52 | XMS_ITS | Referral Summary ---
Author Organization [facility] Address [address] [place] [address] Care Team Providers Care Shoe Stamper Name Role Phone Demi Gonzalez MD Primary Care Provider [phone] Encounters Date Type Department Care Team Description 12/07/2024 11:30 AM CDT Ancillary Procedure Arrhythmia Center [address] [facility] [address] [place] [address] Pacemaker (Primary Dx); CHB (complete [...] 12/12/2018 Assessment & Plan (09/09/2019 2:07 PM LEGAL BILLER): Improving with exercise No specific therapy needed Encouraged an exercise program to improve stamina and her functional capacity. Assessment & Plan (07/20/2019 2:51 PM LEGAL BILLER): The differential diagnosis for dyspnea includes: - [...] an office visit and twelve- lead ECG. 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 I have therefore recommended that she remain anticoagulated for thromboprophylaxis. We will see the patient back 1 month post cardioversion. Assessment & Plan (12/15/2019 1:11 PM CDT): The patient has a BVO4HL4-XYBn score of 3 (annualized risk of stroke 3%). I have therefore recommended that she remain anticoagulated for thromboprophylaxis. The patient will follow-up with me in 6 months for an office visit and twelve- lead ECG. Assessment & Plan (12/12/2018 3:52 PM CDT): The patient has a NTI9RW3-GYKu score of 3 (annualized risk of stroke 3%). I have therefore recommended that she remain anticoagulated for thromboprophylaxis. Assessment & Plan (09/10/2018 2:06 PM LEGAL BILLER): The patient has a BBS3TB5-BHXd score of 3 (annualized risk of stroke 3%). I have therefore recommended that she remain anticoagulated for thromboprophylaxis. The patient will follow-up with me in 6 months for an office visit and twelve- lead ECG. Assessment & Plan (08/05/2018 2:42 PM LEGAL BILLER): The patient has a NXP8VS9-FFNf score of 3 (annualized risk of stroke 3%). I have therefore recommended that she remain anticoagulated for thromboprophylaxis. Assessment & Plan (03/08/2018 11:06 AM CDT): The patient has a EUZ6YH0-DQMb score of 3 (annualized risk of stroke 3.2 %). I have therefore recommended that she remain anticoagulated for thromboprophylaxis. The patient will follow-up with me in 6 months for an office visit and twelve- lead ECG. Assessment & Plan (09/09/2017 12:39 PM LEGAL BILLER): The patient has a WID5UN7-FORd score of 3 (annualized risk of stroke 3.2 %). I have therefore recommended that she remain anticoagulated for thromboprophylaxis. The patient will follow-up with me in 6 months for an office visit and twelve- lead ECG. Assessment & Plan (06/02/2017 2:56 PM CDT): The patient has a QSY1JT7-JABs score of 3 (annualized risk of stroke 3.2 %). I have therefore recommended that she remain anticoagulated for thromboprophylaxis. The patient will follow-up with me in 6 months for an office visit and twelve- lead ECG. Assessment & Plan (04/04/2017 11:27 AM CDT): The patient has a MIG6ST8-UBKp score of 3 (annualized risk of stroke 3.2 %). I have therefore recommended that she remain anticoagulated. The patient will follow-up with me in 3 months for an office visit and twelve- lead ECG. Assessment & Plan (02/24/2017 2:32 PM CDT): The patient has a HVU7TH2-CJCj score of 2 (annualized risk of stroke [...] 017 Assessment & Plan (06/22/2020 2:08 PM LEGAL BILLER): 12-lead ECG today does not demonstrate any [...] toxicity. Assessment & Plan (09/10/2018 2:04 PM LEGAL BILLER): 12-lead ECG today does not demonstrate any [...] checks when necessary. The patient has a DQA2MB8-DSAx score of 3 (annualized risk of stroke [...] checks when necessary. The patient has a XTP5US3-ERDd score of 4 (annualized risk of stroke 4%). I have therefore recommended continued anticoagulation for thromboprophylaxis. Assessment & Plan (04/15/2022 2:08 PM CDT): Persistent atrial fibrillation. 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 This has [...] ECG. Assessment & Plan (06/22/2020 2:08 PM LEGAL BILLER): Persistent atrial fibrillation, recurrent despite ablation and [...] medication. Assessment & Plan (09/10/2018 2:04 PM LEGAL BILLER): The patient is 18 months status post repeat ablation for persistent atrial fibrillation/flutter. She is 1 month status post cardioversion. The patient is maintaining sinus rhythm with sotalol. We will continue to monitor and follow closely, and manage new / recurrent arrhythmia expectantly. Assessment & Plan (08/05/2018 2:39 PM LEGAL BILLER): The patient is over a year status [...] expectantly. Assessment & Plan (09/09/2017 12:34 PM LEGAL BILLER): The patient is 6 months status post [...] on file Legal Sex Female 3:54 AM LEGAL BILLER Gender Identity Female 04/12/2021 6:26 AM CDT [...] on file Medical Devices Implanted Type Area Plaster Molder Device Identifier Shelf Expiration Date Model / Serial / Lot [employer]iva [employer] Inc [id number] System 6-12fr Mvp Venous Closure Vascade - [id number] - [id number] Implanted:Qty: 1 on 08/31/2020 by William Serra MD at [facility] [place] Left: Groin [employer] 06/15/2022 800-612C -10U / [id number] / [id number] [employer] Inc [id number] System 6-12fr Mvp Venous Closure Vascade - [id number] - [id number] Implanted:Qty: 1 on 08/31/2020 by William Serra MD at [facility] [place] Right: Groin [employer] 06/15/2022 800-612C -10U / [id number] / [id number] [employer] Inc [id number] System 6-12fr Mvp Venous Closure Vascade - [id number] - [id number] Implanted:Qty: 1 on 08/31/2020 by William Serra MD at [facility] [place] Right: Groin [employer] 06/28/2022 800-612C -10U / [id number] / [id number] [employer] Inc 817-562i-[id number] System 6-12fr Mvp Venous Closure Vascade - [id number] - [id number] Implanted:Qty: 1 on 08/31/2020 by William Serra MD at [facility] [place] Right: Groin [employer] 06/28/2022 800-612C -10U / [id number] 111B / [id number] Medtronic Inc [id number] Lead Attain Stability Quad Mri Surescan Lv 88mm - [id number] - [id number] Implanted:Qty: 1 on 03/13/2021 by William Serra MD at [facility] Lead [employer] Inc [id number] 12/22/2022 479 888 / [id number] / Medtronic Cardiac Rhythm Mgmt 5076-52 Capsurefix Novus 6.2fr 2mm 52cm Bipolar Screw In Implantable Latex Free - [id number] - [id number] Implanted:Qty: 1 on 03/13/2021 by William Serra MD at [facility] Lead [employer] Inc [id number] 01/06/2023 507 6-52 / [id number] / Medtronic Cardiac Rhythm Mgmt [id number] Solara Mri Surescan Bluetooth 46.5x59mm Connector Hole Radiopaque - [id number] - [id number] Implanted:Qty: 1 on 03/13/2021 by William Serra MD at [facility] Pacemaker Med[employer] Inc [id number] 07/16/2022 W4T R03 / [id number] / Procedures Procedure Name Priority Date/Time Associated Diagnosis Comments DEVICE CHECK - REMOTE Routine 12/07/2024 10:52 AM CDT CHB (complete heart block) (HCC) from Last 3 Months Results * DEVICE CHECK - REMOTE (12/07/2024 10:52 AM CDT) Anatomical Region Laterality Modality Other Narrative 12/15/2024 11:53 AM CDT Table formatting from the original result was not included. BiV PACEMAKER CHECK (REMOTE) Patient ID: Vriy Lyons is a 79 y.o. female. This [...] from Last 3 Months Insurance [facility] Address: [facility] [id number] [place] [address] [facility] MEDICARE ADVANTAGE [facility] Address: [facility] [id number] [place] [phone] [facility] [place] [address] Advance Directives For more information, please contact: [phone] * Full Code (Latest Code Status on File) Date Activated Date Inactivated Comments 03/13/2021 9:08 PM 03/14/2021 3:24 PM * Full Code Date Activated Date Inactivated Comments 08/31/2020 5:59 PM 09/01/2020 2:40 PM Care Teams Shoe Stamper Relationship Specialty Start Date End Date Demi Gonzalez MD PCP - General Family Medicine 04/25/21
[2025-01-12 15:03] LABS: Reticulocyte Hemoglobin Conten 19.9 pg (28.2-36.6); Reticulocyte Percent 2.66 % (0.7-4.3); Reticulocytes Absolute 0.09 10^6/uL (0.02-0.10)
[2025-01-12 15:07] LABS: Basophils Absolute Auto 0.1 K/mm3 (0.0-0.1); Eosinophils Absolute Auto 0.2 K/mm3 (0-0.3); Eosinophils Percent Auto 2.4 % (0-4.4); Hematocrit 25.9 % (37.0-47.0); Hemoglobin 7.9 g/dL (12.0-15.0); Immature Granulocyte Absolute 0.02 K/mm3 (0.00-0.031); Immature Granulocyte Percent A 0.3 % (0-0.5); Lymphocytes Absolute Auto 1.18 K/mm3 (0.9-3.2); Lymphocytes Percent Auto 18.7 % (18.3-44.2); Mean Corpuscular HGB Conc 30.5 g/dl (32-36); Mean Corpuscular Hemoglobin 24.7 pg (26-34); Mean Corpuscular Volume 80.9 fl (80-100); Mean Platelet Volume 10.8 fl (7.4-10.4); Monocytes Absolute Auto 0.6 K/mm3 (0.1-0.6); Monocytes Percent Auto 9.2 % (2.6-8.5); Neutrophils Absolute Auto 4.3 K/mm3 (1.3-6.7); Neutrophils Percent Auto 68.4 % (45.5-73.1); Platelet Count Result 279 k/mm3 (150-375); Red Cell Distribution Width 13.2 % (11.5-14.5); White Blood Count 6.3 K/mm3 (4.5-10.0)
[2025-01-12 15:11] LABS: Iron 27 ug/dL (37-170)
[2025-01-12 15:13] LABS: INR 1.3; Prothrombin Time 16.3 Seconds (11.1-14.7)
[2025-01-12 15:16] LABS: Partial Thromboplastin Time 25.8 Seconds (22.3-36.8)
[2025-01-12 15:21] LABS: Percent Iron Saturation 6 % (20-50)
[2025-01-12 15:25] LABS: Transferrin 355 mg/dL (206-381)
[2025-01-12 15:28] LABS: Alanine Aminotransferase 16 U/L (6-35); Albumin Level 4.2 g/dL (3.5-5.1); Alkaline Phosphatase 81 U/L (38-126); Anion Gap 11 mmol/L (4-12); Aspartate Amino Transferase 30 U/L (14-36); Bilirubin,Total 1.3 mg/dL (0.2-1.3); Blood Urea Nitrogen 16 mg/dL (7-17); Calcium 9.1 mg/dL (8.4-10.2); Carbon Dioxide 19 mmol/L (22-30); Chloride 108 mmol/L (98-107); Estimated CRCL calculation 49 ml/min; Estimated Glomerular Filt Rate > 60; Glucose 120 mg/dL (65-110); Potassium 4.3 mmol/L (3.4-5.0); Sodium 138 mmol/L (137-145)
[2025-01-12 15:32] LABS: NT Pro B Type Natriuretic Pept 1300 pg/mL (19.9-100); Troponin I < 0.012 ng/mL (0.000-0.034)
[2025-01-12 15:47] LABS: Ferritin 8.47 ng/mL (11.1-264)
[2025-01-12 16:29] LABS: Folic Acid > 20.0 ng/mL (2.76->20)
[2025-01-13] VITALS (38 sets, daily range): BP systolic 139–194; BP diastolic 43–90; PULSE 60–120; RESP 15–31; TEMP 35.8–36.6; O2SAT 91–100
[2025-01-13] MEDS: PANTOPRAZOLE SODIUM IV 40 MG VIAL IV PUSH ×3 (01:53→20:38)
[2025-01-13] MEDS: IRON SUCROSE COMPLEX 400 MG, IRON SUCROSE COMPLEX 100 MG in SODIUM CHLORIDE 0.9% IV 250 ML 78.57 MG IVPB (02:32)
--- NOTE | 2025-01-13 03:00 | ADMGEN ---
This patient, Viry Lyons, was admitted to Virtual Bed 3rd Floor-2. Patient/family oriented to hospital policies and general routines including ID bracelet, bed and alarms, visiting hours, pain management, procedures, bathroom and other care routines, personal items, smoking policy, room service/diet, and visiting hours. Information on how to activate the Rapid Response Team has been discussed. Patient/Family are encouraged to report perceived risks to care and to ask questions if they do not understand what they are told or what they should do.
--- NOTE | 2025-01-13 03:16 | PC.NURSE ---
0300 PT ADMISSION QUESTIONS COMPLETED IN ED ROOM 13. PT BOARDING AWAITING BED PLACEMENT.
--- NOTE | 2025-01-13 03:52 | PC.NURSE ---
pt ambulatory with steady gait to restroom . no distress noted. pt iv re-started.
[2025-01-13 07:21] LABS: Hematocrit 25.1 % (37.0-47.0); Hemoglobin 7.6 g/dL (12.0-15.0); Mean Corpuscular HGB Conc 30.3 g/dl (32-36); Mean Corpuscular Hemoglobin 24.1 pg (26-34); Mean Corpuscular Volume 79.7 fl (80-100); Mean Platelet Volume 10.3 fl (7.4-10.4); Platelet Count Result 247 k/mm3 (150-375); Red Blood Count 3.15 M/mm3 (4.2-5.4); Red Cell Distribution Width 13.2 % (11.5-14.5); White Blood Count 5.5 K/mm3 (4.5-10.0)
[2025-01-13 07:34] LABS: Anion Gap 9 mmol/L (4-12); Blood Urea Nitrogen 11 mg/dL (7-17); Calcium 9.1 mg/dL (8.4-10.2); Carbon Dioxide 20 mmol/L (22-30); Chloride 109 mmol/L (98-107); Estimated CRCL calculation 57 ml/min; Estimated Glomerular Filt Rate > 60; Glucose 101 mg/dL (65-110); Magnesium 2.1 mg/dL (1.6-2.3); Sodium 138 mmol/L (137-145)
--- NOTE | 2025-01-13 16:16 | P.HP_ITS ---
H&P: HPI History of Present Illness Date/Time: 01/13/25 16:16 Chief Complaint: Fatigue, Anemia Narrative: Viry Lyons 74-year-old female, history of AFib on Xarelto, PPM, admitted for evaluation of anemia. She reports 2-3 weeks of shortness of breath with exertion that she noticed walking her dog, weakness and fatigue. She also noticed a change in her stool color in the last 2-3 weeks, slightly darker brown /black. Reports 1 epistaxis last week. Woke her up from sleep but minimal amount and stopped quickly. No abdominal pain or reflux symptoms. Last BM was yesterday and was brown/black. No nausea or vomiting. No diarrhea. She saw her PCP for a routine appointment that she had previously, and was directed to go to the ER for a drop in hemoglobin. 8.1, usually 11. She reports no prior episodes of bleeding in the past. Has been taking Xarelto for years. Follows with Cardiology Dr. William Garber at [facility]. She reports she was previously taking off metoprolol since heart rates were controlled. In the ER, NT proBNP elevated to 1300. Vital signs stable. Last dose of Xarelto was Saturday night Review of Systems Review of Systems: Other systems reviewed and were negative. No fevers, cough, urinary symptoms, no palpitation or chest pain. No symptoms of sleep apnea PMFSH Past Medical History Medical History (Updated 01/13/25 @ 16:34 by Idalmis Saunders APN-Bharathi) Abnormal CT scan Femur fracture, left History of pacemaker Exposure to COVID-19 virus Vitamin B12 deficiency Iron deficiency Hyperlipidemia Hypertension History of cardioversion Surgical History Surgical History History of appendectomy History of total knee replacement (TKR) H/O prior ablation treatment Family History Family History Mother Hypertension Cerebrovascular accident Family history of pancreatic cancer Family history of primary malignant neoplasm of liver Father Acute myocardial infarction Social History Social History Smoking status: Former smoker Second hand tobacco smoke exposure: No Alcohol intake: current Drinks per week: 3 Alcohol use details: WINE Substance use: never Substance use type: does not use Do You Feel Safe in your Home?: Yes Lack of Transportation: No Lack of Food: Never True Current Housing: I Have Housing Concerned About Future Housing: No Difficulty Paying Gas/Electric Bills: No Difficulty Paying for Meds: No Currently Unemployed: No Education: Master's Degree or Higher Difficulty w/ Childcare or Family Care: No Living arrangements: with family Occupation/Education: retired Gender identity (if verbalized by the patient): Female Spiritual care concerns: No Agree to blood products: Yes Meds Home Medications and Allergies Home Medications ?Medication ?Instructions ?Recorded ?Confirmed ?Type cyanocobalamin (vitamin B-12) 1,000 mcg PO DAILY 07/14/19 01/13/25 History 1,000 mcg tablet rivaroxaban 20 mg tablet (Xarelto) 20 mg PO QPM 07/14/19 01/13/25 History Calcium 600 + D(3) 1 tab-cap PO DAILY 07/31/22 01/13/25 History lisinopril 40 mg tablet 40 mg PO DAILY #90 tabs 02/12/24 01/13/25 Rx ezetimibe 10 mg tablet (Zetia) 10 mg PO DAILY #90 tabs 05/11/24 01/13/25 Rx clotrimazole-betamethasone 1 1 applic topical BID PRN IRRITATION 01/13/25 01/13/25 History %-0.05 % topical cream Allergies Allergy/AdvReac Type Severity Reaction Status Date / Time No Known Allergies Allergy Verified 01/12/25 14:29 Vital Signs Vital Signs - 24 hr 01/12/25 18:39 01/12/25 18:41 01/12/25 18:45 Temperature Pulse Rate 79 66 66 Respiratory Rate 18 21 H 13 Blood Pressure 210/66 H Pulse Oximetry 100 100 Oxygen Delivery 01/12/25 18:47 01/12/25 19:00 01/12/25 19:02 Temperature Pulse Rate 61 60 60 Respiratory Rate 25 H 18 18 Blood Pressure 210/66 H 173/94 H Pulse Oximetry 81 L Oxygen Delivery 01/12/25 19:15 01/12/25 19:17 01/12/25 19:30 Temperature Pulse Rate 61 60 61 Respiratory Rate 24 H 18 22 H Blood Pressure 184/96 H Pulse Oximetry 100 98 97 Oxygen Delivery 01/12/25 19:32 01/12/25 19:45 01/12/25 19:47 Temperature Pulse Rate 70 83 72 Respiratory Rate 23 H 21 H 21 H Blood Pressure 179/51 H 157/58 H Pulse Oximetry 98 100 99 Oxygen Delivery 01/12/25 20:00 01/12/25 20:03 01/13/25 01:24 Temperature Pulse Rate 62 64 108 H Respiratory Rate 21 H 20 31 H Blood Pressure 109/79 Pulse Oximetry 99 100 100 Oxygen Delivery 01/13/25 01:26 01/13/25 01:30 01/13/25 01:32 Temperature Pulse Rate 67 68 82 Respiratory Rate 23 H 19 19 Blood Pressure 166/88 H 158/50 H Pulse Oximetry 98 96 95 Oxygen Delivery 01/13/25 01:45 01/13/25 02:00 01/13/25 02:02 Temperature Pulse Rate 90 79 82 Respiratory Rate 19 23 H 18 Blood Pressure 154/46 H Pulse Oximetry 97 98 Oxygen Delivery 01/13/25 02:15 01/13/25 02:30 01/13/25 02:32 Temperature Pulse Rate 84 103 H 86 Respiratory Rate 20 19 18 Blood Pressure 139/50 L Pulse Oximetry 97 97 98 Oxygen Delivery 01/13/25 02:45 01/13/25 03:00 01/13/25 03:03 Temperature Pulse Rate 103 H 80 120 H Respiratory Rate 16 15 18 Blood Pressure 156/90 H Pulse Oximetry 95 100 100 Oxygen Delivery 01/13/25 03:15 01/13/25 03:32 01/13/25 03:45 Temperature Pulse Rate 82 63 103 H Respiratory Rate 26 H 21 H 17 Blood Pressure Pulse Oximetry 100 96 Oxygen Delivery 01/13/25 04:00 01/13/25 04:15 01/13/25 04:34 Temperature Pulse Rate 98 120 H 109 H Respiratory Rate 18 16 21 H Blood Pressure Pulse Oximetry 94 96 94 Oxygen Delivery 01/13/25 04:45 01/13/25 05:00 01/13/25 05:15 Temperature Pulse Rate 113 H 120 H 113 H Respiratory Rate 20 18 20 Blood Pressure Pulse Oximetry 95 93 91 Oxygen Delivery 01/13/25 05:30 01/13/25 05:45 01/13/25 05:51 Temperature Pulse Rate 120 H 113 H 120 H Respiratory Rate 18 19 20 Blood Pressure 157/66 H Pulse Oximetry 92 91 95 Oxygen Delivery 01/13/25 06:00 01/13/25 06:01 01/13/25 06:15 Temperature Pulse Rate 103 H 120 H 100 Respiratory Rate 18 26 H 25 H Blood Pressure 194/72 H Pulse Oximetry 97 97 98 Oxygen Delivery 01/13/25 06:30 01/13/25 06:31 01/13/25 07:34 Temperature Pulse Rate 103 H 120 H 94 Respiratory Rate 20 18 20 Blood Pressure 172/65 H 164/58 H Pulse Oximetry 97 98 95 Oxygen Delivery 01/13/25 08:30 01/13/25 09:16 01/13/25 09:57 Temperature 96.5 F L Pulse Rate 61 61 Respiratory Rate 18 Blood Pressure 149/43 H Pulse Oximetry 98 Oxygen Delivery Room Air 01/13/25 12:00 Temperature Pulse Rate 60 Respiratory Rate Blood Pressure Pulse Oximetry Oxygen Delivery Exam Narrative: General - Awake and alert. No acute distress Eyes - PERRLA, EOM intact ENT - No thrush, No erythema Neck - No noticeable or palpable swelling Lymph Nodes - No lymphadenopathy Cardiovascular - RRR no m/r/g, no JVD Lungs: Clear to auscultation, No wheezing, use of accessory muscles, no crackles Skin - Skin warm and dry, no wounds or rashes Abdomen - Normal bowel sounds, abdomen soft and nontender Extremities - No edema, cyanosis or clubbing Musculoskeletal - 5/5 strength, normal range of motion, no swollen or erythematous joints. Neurological ? Alert and oriented x 3, CN 2-12 grossly intact. Psych: Normal mood and affect H&P: Results Labs Labs: Short CBC 01/13/25 Range/Units 07:15 WBC 5.5 (4.5-10.0) K/mm3 Hgb 7.6 L (12.0-15.0) g/dL Hct 25.1 L (37.0-47.0) % Plt Count 247 (150-375) k/mm3 [facility] 01/13/25 07:15 Sodium 138 Potassium 4.0 Chloride 109 H Carbon Dioxide 20 L BUN 11 D Creatinine 0.74 Glucose 101 Calcium 9.1 Assessment and Plan Assessment and plan (1) Acute blood loss anemia: Code(s): D62 - Acute posthemorrhagic anemia Status: Acute Assessment and Plan: Labs significant for iron deficiency anemia. Possible GI source. Epistaxis likely nonsignificant. Blood count trending down from last year, 11.8/36.8 07/09/2024. Trending down in the last week, 8.1-26.2 on 01/06. Overnight 7.9- 25.9 dropped to 7.6 and 25.1 today. Platelets normal. --GI consult --clear liquids today pending potential procedures such as colonoscopy and EGD --follow CBC --holding Xarelto --s/p 400mg venofer, additional infusion tomorrow --continue PPI b.i.d. --Saline spray prn for dry sinuses to prevent nose bleeds (2) Atrial fibrillation: Qualifiers: Atrial fibrillation type: unspecified Qualified Code(s): I48.91 - Unspecified atrial fibrillation Code(s): I48.91 - Unspecified atrial fibrillation Status: Acute Assessment and Plan: Vital signs stable. EKG showed a paced rhythm --holding Xarelto --NT proBNP 1300 Hospitalist MIPS Advance Care Plan I have confirmed that the patient's Advanced Care Plan is present, code status is documented, or surrogate decision maker is listed in patient medical record.: Yes Medication Reconciliation I have utilized all available resources to obtain, update and review the patients current medications (includes all prescriptions, OTC, herbals, cannabis, and nutritional supplements).: Yes
--- NOTE | 2025-01-13 16:16 | P.CONGI_ITS ---
Assessment and Plan Assessment and plan (1) Acute anemia: Code(s): D64.9 - Anemia, unspecified <Idalmis Saunders APN-C - Last Filed: 01/13/25 17:02> Status: Acute <Idalmis Saunders APN-C - Last Filed: 01/13/25 17:02> (2) Iron deficiency anemia: Code(s): D50.9 - Iron deficiency anemia, unspecified <Idalmis Saunders APN-C - Last Filed: 01/13/25 17:02> Status: Acute <Idalmis Saunders APN-C - Last Filed: 01/13/25 17:02> (3) Abnormal CT scan: Code(s): R93.89 - Abnormal findings on diagnostic imaging of other specified body structures <Idalmis Saunders APN-C - Last Filed: 01/13/25 17:02> Status: Acute <CASTRO Goins - Last Filed: 01/13/25 17:02> Assessment and Plan: Iron deficiency anemia with acute drop in hgb/Possible GI bleed/abnormal CT scan. Hgb previously 11.8 in June now down to 7.6 today, down from 8.1 on 01/06/2025. Iron studies show low ferritin 8.4 with iron saturation of 6%, serum iron 27 (L) and TIBC 480 (H). RDW normal. No overt blood loss noted but CT scan shows Hyperdense material seen in the rectum and left side of the colon which may reflect blood or fecal material suggestive of possible GI bleed. Colonoscopy is advised for further follow up. Has received Venofer during admission. DDX: GI blood loss VS KEYANA VS anemia of chronic disease vs diverticular bleed vs rectal mass vs angiodysplasia. - Continue PPI BID - Recommend EGD and colonoscopy to evaluate for source of blood loss. Would prefer for pt to have this done will she is here but will discuss Dr. Ryan for possibility of out patient procedures is she wishes to attend friends tomorrow. - Follow up hemoglobin levels Late entry: 1700. Spoke to Dr. Ryan with patient up date. Okay for patient to have EGD and colonoscopy as out patient. okay to discontinue PPI at discharge. Call placed to her Nurse Sussy with up date. <CASTRO Goins - Last Filed: 01/13/25 17:02> GI Consult Note Consult date/time: 01/13/25 16:16 <CASTRO Goins - Last Filed: 01/13/25 17:02> Reason for consult: acute anemia, possible GI bleed. <CASTRO Goins - Last Filed: 01/13/25 17:02> HPI: Viry Lyons is a 79 year old female who we are ask to see for evaluation of acute anemia and possible GI bleed. She reports feeling short of breath, worse with exertion, weak, and fatigued over the past few weeks. She saw her PCP last week and had outpatient labs performed. She was notified that she was anemic and referred to the ED for further evaluation. She has a known history of iron deficiency anemia with hemoglobin typically ranging in the 11's, which dropped to 8.1 on 01/06/2025. Labs today show hgb of 7.6, HCT 25.1, MCV 79.8, RDW normal at 13.2. INR normal on admission. No leukocytosis. Iron study showed low ferritin 8.4 with iron saturation of 6%. Serum iron 27 (l) and TIBC 480 (H). Folate .20 and Vitamin B12 917. LFTs normal. BNP 1300. She did experience a nosebleed in the middle of the night last week. CT scan of abdominal pelvis showed Hyperdense material seen in the rectum and left side of the colon which may reflect blood or fecal materials. No evidence of appendicitis, diverticulitis or intestinal obstruction. Colonoscopy is advised. Also hepatomegaly. She has received Venofer IVPB times and started on pantoprazole 40 mg IV push BID. She denies any previous or current nausea, vomiting, dysphagia, odynophagia, change in bowel habits or increased frequency of stool, hematochezia or hematemesis. She has no abdominal pain and reports having regular BM, typically once in the morning. She notes increased fatigue. She denies history of GERD or PUD. She denies taking acid reflux medications prior to admission. She takes Tylenol as needed for pain as advised by her decal maker. She denies regular use of ibuprofen, Motrin, or Aleve. Last colonoscopy in 2021 was normal. No personal history of colon polyps. She denies any family history of colon cancers. She tried iron supplements a couple of years ago but they upset her stomach. Reports SOB is better today. Pt has a friends tomorrow and would like to proceed with scopes as out patient if possible. ENDOSCOPY HISTORY: EGD: Distant history of EGD while in college. COLONOSCOPY: 08/08/2022 (Dr. Denis) Indication: routine screening and positive Cologuard Normal colonoscopy to the depth of insertion Repeat colonoscopy recommendation not available <Idalmis Saunders APN-Bharathi - Last Filed: 01/13/25 17:02> I have reviewed our nurse practitioner's note, examined the patient and pertinent laboratory data. We have discussed the plan extensively and agreed with was stated in the note. Patient is a candidate for outpatient procedures, which will bne arranged. She can leave to attend her personal matters since she is not acutely ill. She reports feeling short of breath, worse with exertion, weak, and fatigued over the past few weeks. She saw her PCP last week and had outpatient labs performed. She was notified that she was anemic and referred to the ED for further evaluation. She has a known history of iron deficiency anemia with hemoglobin typically ranging in the 11's, which dropped to 8.1 on 01/06/2025. Labs today show hgb of 7.6, HCT 25.1, MCV 79.8, RDW normal at 13.2. INR normal on admission. No leukocytosis. Iron study showed low ferritin 8.4 with iron saturation of 6%. Serum iron 27 (l) and TIBC 480 (H). Folate .20 and Vitamin B12 917. LFTs normal. BNP 1300. She did experience a nosebleed in the middle of the night last week. CT scan of abdominal pelvis showed Hyperdense material seen in the rectum and left side of the colon which may reflect blood or fecal materials. No evidence of appendicitis, diverticulitis or intestinal obstruction. Colonoscopy is advised. Also hepatomegaly. She has received Venofer IVPB times and started on pantoprazole 40 mg IV push BID. She denies any previous or current nausea, vomiting, dysphagia, odynophagia, change in bowel habits or increased frequency of stool, hematochezia or hematemesis. She has no abdominal pain and reports having regular BM, typically once in the morning. She notes increased fatigue. She denies history of GERD or PUD. She denies taking acid reflux medications prior to admission. She takes Tylenol as needed for pain as advised by her decal maker. She denies regular use of ibuprofen, Motrin, or Aleve. Last colonoscopy in 2021 was normal. No personal history of colon polyps. She denies any family history of colon cancers. She tried iron supplements a couple of years ago but they upset her stomach. Reports SOB is better today. Pt has a friends tomorrow and would like to proceed with scopes as out patient if possible. ENDOSCOPY HISTORY: EGD: Distant history of EGD while in college. COLONOSCOPY: 08/08/2022 (Dr. Denis) Indication: routine screening and positive Cologuard Normal colonoscopy to the depth of insertion Repeat colonoscopy recommendation not available <Deuce Ryan MD - Last Filed: 01/13/25 17:01> Review of Systems 2 Constitutional: Constitutional: Denies anorexia and Denies fatigue <CASTRO Goins - Last Filed: 01/13/25 17:02> Eyes: Eyes: Denies change in vision <CASTRO Goins - Last Filed: 01/13/25 17:02> ENT: Denies hoarseness <CASTRO Goins - Last Filed: 01/13/25 17:02> Cardiovascular: Cardiovascular: Denies chest pain <CASTRO Goins - Last Filed: 01/13/25 17:02> Respiratory: Respiratory: Denies cough <CASTRO Goins - Last Filed: 01/13/25 17:02> Gastrointestinal: Gastrointestinal: Reports as per HPI <CASTRO Goins - Last Filed: 01/13/25 17:02> Genitourinary: Genitourinary: Denies urinary frequency <CASTRO Goins - Last Filed: 01/13/25 17:02> Musculoskeletal: Musculoskeletal: Denies abnormal gait and Denies myalgias <CASTRO Goins - Last Filed: 01/13/25 17:02> Integumentary/Breasts: Skin/Breast: Denies rash and Denies jaundice <CASTRO Goins - Last Filed: 01/13/25 17:02> Neurologic: Denies abnormal gait <CASTRO Goins - Last Filed: 01/13/25 17:02> Psychiatric: Psychiatric: Denies change in appetite <CASTRO Goins - Last Filed: 01/13/25 17:02> Endocrine: Endocrine: Denies fatigue <CASTRO Goins - Last Filed: 01/13/25 17:02> Hematologic/Lymphatic: Hematologic/Lymphatic: Denies easy bruising <CASTRO Goins - Last Filed: 01/13/25 17:02> Allergic/Immunologic: Allergic/Immunologic: Denies GI upset with certain foods <CASTRO Goins - Last Filed: 01/13/25 17:02> [facility] Past Medical History Medical History: Medical History (Updated 01/13/25 @ 16:34 by CASTRO Goins) Abnormal CT scan Femur fracture, left History of pacemaker Exposure to COVID-19 virus Vitamin B12 deficiency Iron deficiency Hyperlipidemia Hypertension History of cardioversion <CASTRO Goins - Last Filed: 01/13/25 17:02> Surgical History Surgical History: Surgical History History of appendectomy History of total knee replacement (TKR) H/O prior ablation treatment <CASTRO Goins - Last Filed: 01/13/25 17:02> Family History Family History: Family History Mother Hypertension Cerebrovascular accident Family history of pancreatic cancer Family history of primary malignant neoplasm of liver Father Acute myocardial infarction <CASTRO Goins - Last Filed: 01/13/25 17:02> Social History Social History: Social History Smoking status: Former smoker Second hand tobacco smoke exposure: No Alcohol intake: current Drinks per week: 3 Alcohol use details: WINE Substance use: never Substance use type: does not use Do You Feel Safe in your Home?: Yes Lack of Transportation: No Lack of Food: Never True Current Housing: I Have Housing Concerned About Future Housing: No Difficulty Paying Gas/Electric Bills: No Difficulty Paying for Meds: No Currently Unemployed: No Education: Master's Degree or Higher Difficulty w/ Childcare or Family Care: No Living arrangements: with family Occupation/Education: retired Gender identity (if verbalized by the patient): Female Spiritual care concerns: No Agree to blood products: Yes <CASTRO Goins - Last Filed: 01/13/25 17:02> Meds Home Medications and Allergies Home medications: Home Medications ?Medication ?Instructions ?Recorded ?Confirmed ?Type cyanocobalamin (vitamin B-12) 1,000 mcg PO DAILY 07/14/19 01/13/25 History 1,000 mcg tablet rivaroxaban 20 mg tablet (Xarelto) 20 mg PO QPM 07/14/19 01/13/25 History Calcium 600 + D(3) 1 tab-cap PO DAILY 07/31/22 01/13/25 History lisinopril 40 mg tablet 40 mg PO DAILY #90 tabs 02/12/24 01/13/25 Rx ezetimibe 10 mg tablet (Zetia) 10 mg PO DAILY #90 tabs 05/11/24 01/13/25 Rx clotrimazole-betamethasone 1 1 applic topical BID PRN IRRITATION 01/13/25 01/13/25 History %-0.05 % topical cream <CASTRO Goins - Last Filed: 01/13/25 17:02> Allergies/Adverse reactions: Allergies Allergy/AdvReac Type Severity Reaction Status Date / Time No Known Allergies Allergy Verified 01/12/25 14:29 <CASTRO Goins - Last Filed: 01/13/25 17:02> Vital Signs Vital Signs - 24 hr 01/12/25 18:39 01/12/25 18:41 01/12/25 18:45 Temperature Pulse Rate 79 66 66 Respiratory Rate 18 21 H 13 Blood Pressure 210/66 H Pulse Oximetry 100 100 Oxygen Delivery 01/12/25 18:47 01/12/25 19:00 01/12/25 19:02 Temperature Pulse Rate 61 60 60 Respiratory Rate 25 H 18 18 Blood Pressure 210/66 H 173/94 H Pulse Oximetry 81 L Oxygen Delivery 01/12/25 19:15 01/12/25 19:17 01/12/25 19:30 Temperature Pulse Rate 61 60 61 Respiratory Rate 24 H 18 22 H Blood Pressure 184/96 H Pulse Oximetry 100 98 97 Oxygen Delivery 01/12/25 19:32 01/12/25 19:45 01/12/25 19:47 Temperature Pulse Rate 70 83 72 Respiratory Rate 23 H 21 H 21 H Blood Pressure 179/51 H 157/58 H Pulse Oximetry 98 100 99 Oxygen Delivery 01/12/25 20:00 01/12/25 20:03 01/13/25 01:24 Temperature Pulse Rate 62 64 108 H Respiratory Rate 21 H 20 31 H Blood Pressure 109/79 Pulse Oximetry 99 100 100 Oxygen Delivery 01/13/25 01:26 01/13/25 01:30 01/13/25 01:32 Temperature Pulse Rate 67 68 82 Respiratory Rate 23 H 19 19 Blood Pressure 166/88 H 158/50 H Pulse Oximetry 98 96 95 Oxygen Delivery 01/13/25 01:45 01/13/25 02:00 01/13/25 02:02 Temperature Pulse Rate 90 79 82 Respiratory Rate 19 23 H 18 Blood Pressure 154/46 H Pulse Oximetry 97 98 Oxygen Delivery 01/13/25 02:15 01/13/25 02:30 01/13/25 02:32 Temperature Pulse Rate 84 103 H 86 Respiratory Rate 20 19 18 Blood Pressure 139/50 L Pulse Oximetry 97 97 98 Oxygen Delivery 01/13/25 02:45 01/13/25 03:00 01/13/25 03:03 Temperature Pulse Rate 103 H 80 120 H Respiratory Rate 16 15 18 Blood Pressure 156/90 H Pulse Oximetry 95 100 100 Oxygen Delivery 01/13/25 03:15 01/13/25 03:32 01/13/25 03:45 Temperature Pulse Rate 82 63 103 H Respiratory Rate 26 H 21 H 17 Blood Pressure Pulse Oximetry 100 96 Oxygen Delivery 01/13/25 04:00 01/13/25 04:15 01/13/25 04:34 Temperature Pulse Rate 98 120 H 109 H Respiratory Rate 18 16 21 H Blood Pressure Pulse Oximetry 94 96 94 Oxygen Delivery 01/13/25 04:45 01/13/25 05:00 01/13/25 05:15 Temperature Pulse Rate 113 H 120 H 113 H Respiratory Rate 20 18 20 Blood Pressure Pulse Oximetry 95 93 91 Oxygen Delivery 01/13/25 05:30 01/13/25 05:45 01/13/25 05:51 Temperature Pulse Rate 120 H 113 H 120 H Respiratory Rate 18 19 20 Blood Pressure 157/66 H Pulse Oximetry 92 91 95 Oxygen Delivery 01/13/25 06:00 01/13/25 06:01 01/13/25 06:15 Temperature Pulse Rate 103 H 120 H 100 Respiratory Rate 18 26 H 25 H Blood Pressure 194/72 H Pulse Oximetry 97 97 98 Oxygen Delivery 01/13/25 06:30 01/13/25 06:31 01/13/25 07:34 Temperature Pulse Rate 103 H 120 H 94 Respiratory Rate 20 18 20 Blood Pressure 172/65 H 164/58 H Pulse Oximetry 97 98 95 Oxygen Delivery 01/13/25 08:30 01/13/25 09:16 01/13/25 09:57 Temperature 96.5 F L Pulse Rate 61 61 Respiratory Rate 18 Blood Pressure 149/43 H Pulse Oximetry 98 Oxygen Delivery Room Air 01/13/25 12:00 Temperature Pulse Rate 60 Respiratory Rate Blood Pressure Pulse Oximetry Oxygen Delivery <CASTRO Goins Last Filed: 01/13/25 17:02> Exam 2 Const: General: cooperative, comfortable and no acute distress <CASTRO Goins Last Filed: 01/13/25 17:02> Orientation/consciousness: oriented to person, oriented to place, oriented to time and patient oriented x3 <CASTRO Goins Last Filed: 01/13/25 17:02> HENMT: Head: normal to inspection <JD Goins - Last Filed: 01/13/25 17:02> Eyes: General: appearance normal, both eyes and all related structures < Idalmis Saunders APNC - Last Filed: 01/13/25 17:02> Neck: Neck: normal visual inspection <Idalmis Saunders APN - Last Filed: 01/13/25 17:02> Chest: Chest palpation & inspection: normal inspection of the chest <Idalmis Saunders APN - Last Filed: 01/13/25 17:02> Resp: Effort & Inspection: normal respiratory effort <[facility] - Last Filed: 01/13/25 17:02> Auscultation: clear to auscultation bilaterally <Idalmis Saunders APN - Last Filed: 01/13/25 17:02> Cardio: Rate: regular rate <Idalmis Saunders APN - Last Filed: 01/13/25 17:02> Rhythm: regular rhythm <Idalmis Saunders APN - Last Filed: 01/13/25 17:02> GI: Inspection: normal to inspection <Idalmis Saunders APN - Last Filed: 01/13/25 17:02> Auscultation: normal bowel sounds <JD Goins - Last Filed: 01/13/25 17:02> Rectal Exam: deferred <Idalmis Saunders APN - Last Filed: 01/13/25 17:02> Skin: General skin exam: normal color <Idalmis Saunders APN - Last Filed: 01/13/25 17:02> Neuro: General: oriented to person, oriented to place, oriented to time and patient oriented x3 <JD GoinsC - Last Filed: 01/13/25 17:02> Extrem: General: normal to inspection <Idalmis Saunders APN - Last Filed: 01/13/25 17:02> Psych: Appearance: grossly normal <CASTRO Goins - Last Filed: 01/13/25 17:02> Attitude: cooperative <CASTRO Goins - Last Filed: 01/13/25 17:02> Results Labs CBC & Chem 7: 01/13/25 07:15 01/13/25 07:15 <CASTRO Goins - Last Filed: 01/13/25 17:02> Labs: Short CBC 01/13/25 Range/Units 07:15 WBC 5.5 (4.5-10.0) K/mm3 Hgb 7.6 L (12.0-15.0) g/dL Hct 25.1 L (37.0-47.0) % Plt Count 247 (150-375) k/mm3 BMP 01/13/25 07:15 Sodium 138 Potassium 4.0 Chloride 109 H Carbon Dioxide 20 L BUN 11 D Creatinine 0.74 Glucose 101 Calcium 9.1 <CASTRO Goins - Last Filed: 01/13/25 17:02>
[2025-01-13] MEDS: lisinopriL 20 MG TABLET 40 MG PO (17:18)
[2025-01-13 21:12] LABS: Hematocrit 25.2 % (37.0-47.0); Hemoglobin 7.7 g/dL (12.0-15.0); Mean Corpuscular HGB Conc 30.6 g/dl (32-36); Mean Corpuscular Hemoglobin 24.2 pg (26-34); Mean Corpuscular Volume 79.2 fl (80-100); Mean Platelet Volume 9.7 fl (7.4-10.4); Platelet Count Result 238 k/mm3 (150-375); Red Blood Count 3.18 M/mm3 (4.2-5.4); Red Cell Distribution Width 13.2 % (11.5-14.5); White Blood Count 6.8 K/mm3 (4.5-10.0)
[2025-01-13 21:21] LABS: Anion Gap 6 mmol/L (4-12); Blood Urea Nitrogen 10 mg/dL (7-17); Calcium 9.4 mg/dL (8.4-10.2); Carbon Dioxide 21 mmol/L (22-30); Chloride 108 mmol/L (98-107); Estimated CRCL calculation 57 ml/min; Estimated Glomerular Filt Rate > 60; Glucose 91 mg/dL (65-110); Magnesium 2.1 mg/dL (1.6-2.3); Sodium 135 mmol/L (137-145)
[2025-01-14] VITALS (7 sets, daily range): BP systolic 150–161; BP diastolic 50–53; PULSE 60–69; RESP 16; TEMP 36.6; O2SAT 95–96
--- NOTE | 2025-01-14 | ECHO_ITS ---
Patient Info Name: Viry Lyons Age: 79 years : 1945 Gender: Female Ht: 64 in Wt: 178 lbs BSA: 1.94 m2 HR: 64 bpm BP: 150 / 50 mmHg Technical Quality: Good Exam Date: 01/14/2025 7:28 AM Patient Status: I Admit Date: 01/13/2025 Exam Type: CA echo doppler color flow Staff Referring Physician: Hugo Nieves Coverstitch Elastic Attacher: Disha Wisdom Attending Provider: Rosalba Flores Summary 1. Left ventricular chamber dimension is normal. 2. Left ventricular systolic function is normal, estimated at 65-70. 3. There is mild concentric increased left ventricular wall thickness. 4. The left ventricular diastolic function is abnormal. 5. E/e' 12 is mildly elevated. 6. Linear artifact in right ventricle suggestive of catheter(s), pacemaker lead(s), or ICD lead(s). 7. Left atrial chamber dimension is moderately enlarged. 8. Linear artifact in the right atrium suggestive of catheter(s), pacemaker lead(s), or ICD lead(s). 9. There is mild aortic valve sclerosis. 10. The mitral valve has a mildly calcified annulus. 11. There is trace mitral valve regurgitation. 12. There is mild tricuspid valve regurgitation. 13. Mild pulmonary hypertension, estimated pulmonary arterial systolic pressure is 45 mmHg. Left Ventricle E/e' 12 is mildly elevated. Left ventricular chamber dimension is normal. Left ventricular systolic function is normal, estimated at 65-70. There is mild concentric increased left ventricular wall thickness. The left ventricular diastolic function is abnormal. Right Ventricle Linear artifact in right ventricle suggestive of catheter(s), pacemaker lead(s), or ICD lead(s). Right ventricular chamber dimension is normal. Right ventricular systolic function is normal and with normal TAPSE 2.1 cm. Left Atria Left atrial chamber dimension is moderately enlarged. Right Atria Linear artifact in the right atrium suggestive of catheter(s), pacemaker lead(s), or ICD lead(s). Right atrial chamber dimension is normal. Aortic Valve The aortic valve is trileaflet. There is mild aortic valve sclerosis. There is no aortic valve stenosis. There is no aortic valve regurgitation. Pulmonic Valve There is no pulmonic regurgitation. Mitral Valve The mitral valve has a mildly calcified annulus. There is no mitral valve stenosis. There is trace mitral valve regurgitation. Tricuspid Valve There is mild tricuspid valve regurgitation. Mild pulmonary hypertension, estimated pulmonary arterial systolic pressure is 45 mmHg. Pericardium/Pleural There is no pericardial effusion. Inferior Vena Cava Normal inferior vena cava with >50% collapse upon inspiration consistent with normal right atrial pressure, 5 mmHg. Aorta The aortic root size at the sinus of Valsalva is normal. Left Ventricular Outflow Tract Name Value Normal LVOT 2D LVOT Diameter 1.8 cm LVOT Doppler LVOT Peak Velocity 189 cm/s LVOT Peak Gradient 14 mmHg LVOT Mean Gradient 7 mmHg LVOT VTI 42 cm LVOT VTI/AV VTI Ratio 0.9 LVOT Stroke Volume 100 ml LVOT CO 6.0 l/min LVOT CI 3.1 l/min/m2 Mitral Valve Name Value Normal MV Diastolic Function MV E Peak Velocity 134 cm/s MV A Peak Velocity 37 cm/s MV E/A 3.6 MV Decel Time (PW) 285 ms MV Annular TDI MV E/e' (Septal) 13.0 MV E/e' (Lateral) 12.4 MV E/e' (Average) 12.7 Tricuspid Valve Name Value Normal TV Regurgitation Doppler TR Peak Velocity 315 cm/s TR Peak Gradient 38 mmHg Estimated PAP/RSVP RA Pressure 5 mmHg <=5 PA Systolic Pressure 45 mmHg <36 RV Systolic Pressure 45 mmHg <36 TV Annular TDI TV Lateral Mildred s' Velocity 14.0 cm/s >=9.5 Aortic Valve Name Value Normal AV Doppler AV Peak Velocity 203 cm/s AV Peak Gradient 16 mmHg AV Mean Gradient 8 mmHg AV VTI 45 cm AV Area (Cont Eq VTI) 2.2 cm2 >=3.0 AV Area (Cont Eq Rodolfo) 2.3 cm2 AV DI (Rodolfo) 0.93 AV Regurgitation 2D LVOT Area 2.4 cm2 Ventricles Name Value Normal LV Dimensions 2D/MM IVS Diastolic Thickness (2D) 1.4 cm 0.6-1.0 LVID Diastole (2D) 4.4 cm 3.8-5.2 LVIW Diastolic Thickness (2D) 1.0 cm 0.6-0.9 LVID Systole (2D) 2.8 cm 2.2-3.5 LVOT Diameter 1.8 cm LV Mass (2D Cubed) 187.53 g 67.00-162.00 LV Mass Index (2D Cubed) 97 g/m2 43-95 Relative Wall Thickness (2D) 0.45 <=0.42 LV Fractional Shortening/Ejection Fraction 2D/MM LV Fractional Shortening (2D) 36 % 27-45 LV EF (2D Teichholz) 66 % LV Diastolic Volume (4C MOD) 81 ml LV EF (4C MOD) 73 % LV Diastolic Volume (2C MOD) 91 ml LV EF (2C MOD) 73 % LV Diastolic Volume (BP MOD) 86 ml 46-106 LV Diastolic Volume Index (BP MOD) 45 ml/m2 29-61 LV Systolic Volume (BP MOD) 23 ml 14-42 LV Systolic Volume Index (BP MOD) 12 ml/m2 8-24 LV EF (BP MOD) 73 % 54-74 LV Diastolic Length (4C) 8.4 cm LV Systolic Length (4C) 6.6 cm LV Stroke Volume (4C MOD) 59 ml Atria Name Value Normal LA Dimensions LA Volume (4C A-L) 88 ml LA Volume (BP A-L) 88 ml RA Dimensions RA Systolic Major [place] Length (4C) 5.1 cm 2.2-2.8 RA Area (4C) 14.5 cm2 <=18.0 Report Signatures
[2025-01-14 07:28] LABS: Basophils Absolute Auto 0.1 K/mm3 (0.0-0.1); Basophils Percent Auto 1.1 % (0.2-1.2); Eosinophils Absolute Auto 0.2 K/mm3 (0-0.3); Eosinophils Percent Auto 2.8 % (0-4.4); Hematocrit 26.7 % (37.0-47.0); Immature Granulocyte Absolute 0.02 K/mm3 (0.00-0.031); Immature Granulocyte Percent A 0.4 % (0-0.5); Lymphocytes Absolute Auto 1.09 K/mm3 (0.9-3.2); Mean Corpuscular Volume 80.2 fl (80-100); Mean Platelet Volume 10.7 fl (7.4-10.4); Monocytes Absolute Auto 0.6 K/mm3 (0.1-0.6); Monocytes Percent Auto 11.2 % (2.6-8.5); Neutrophils Absolute Auto 3.5 K/mm3 (1.3-6.7); Neutrophils Percent Auto 64.5 % (45.5-73.1); Platelet Count Result 247 k/mm3 (150-375); Red Blood Count 3.33 M/mm3 (4.2-5.4); Red Cell Distribution Width 13.1 % (11.5-14.5); White Blood Count 5.4 K/mm3 (4.5-10.0)
--- NOTE | 2025-01-14 08:18 | P.DS_ITS ---
DS: Admitting Diagnosis Discharge Date 01/14/2025 Admitting Diagnosis acute blood loss anemia iron efficiency DS: Discharge Diagnosis Discharge Diagnosis (1) Acute blood loss anemia: Code(s): D62 - Acute posthemorrhagic anemia Status: Acute (2) Iron deficiency anemia: Code(s): D50.9 - Iron deficiency anemia, unspecified Status: Acute (3) Atrial fibrillation: Qualifiers: Atrial fibrillation type: unspecified Qualified Code(s): I48.91 - Unspecified atrial fibrillation Code(s): I48.91 - Unspecified atrial fibrillation Status: Acute (4) Hypertension: Qualifiers: Hypertension type: essential hypertension Qualified Code(s): I10 - Essential (primary) hypertension Code(s): I10 - Essential (primary) hypertension Status: Acute DS: Summary Hospital Course Reason for hospitalization: Copied from [facility] 01/13: Viry Lyons 74-year-old female, history of AFib on Xarelto, PPM, admitted for evaluation of anemia. She reports 2-3 weeks of shortness of breath with exertion that she noticed walking her dog, weakness and fatigue. She also noticed a change in her stool color in the last 2-3 weeks, slightly darker brown/black. Reports 1 epistaxis last week. Woke her up from sleep but minimal amount and stopped quickly. No abdominal pain or reflux symptoms. Last BM was yesterday and was brown/black. No nausea or vomiting. No diarrhea. She saw her PCP for a routine appointment that she had previously, and was directed to go to the ER for a drop in hemoglobin. 8.1, usually 11. She reports no prior episodes of bleeding in the past. Has been taking Xarelto for years. Follows with Cardiology Dr. William Garber at [facility]. She reports she was previously taking off metoprolol since heart rates were controlled. In the ER, NT proBNP elevated to 1300. Vital signs stable. Last dose of Xarelto was Saturday night Hospital Course: Acute blood loss anemia: Labs significant for iron deficiency anemia. Possible GI source. Epistaxis likely nonsignificant. Blood count trending down from last year, 11.8/36.8 07/09/2024. Trending down in the last week, 8.1-26.2 on 01/06. Overnight 7.9- 25.9 dropped to 7.6 and 25.1 today. Platelets normal. GI was consulted and planning outpatient endoscopy. Holding Xarelto until follow-up. CHADS2 Vasc 2 4, discussed 4% risk per year of stroke. Resume Xarelto after scope or can re- trial in 1-2 weeks if rescheduled. CBC in 1-2 weeks. Received IV Venofer during admission, 800mg. For epistaxis saline nasal spray appearance Atrial fibrillation: Vital signs stable. EKG showed a paced rhythm. HR RRR --holding Xarelto Shortness of breath Likely due to anemia. NT proBNP 1300 but TTE normal LVEF 01/14 TTE showed 1. Left ventricular chamber dimension is normal. 2. Left ventricular systolic function is normal, estimated at 65-70. 3. There is mild concentric increased left ventricular wall thickness. 4. The left ventricular diastolic function is abnormal. 5. E/e' 12 is mildly elevated. 6. Linear artifact in right ventricle suggestive of catheter(s), pacemaker lead(s), or ICD lead(s). 7. Left atrial chamber dimension is moderately enlarged. 8. Linear artifact in the right atrium suggestive of catheter(s), pacemaker lead(s), or ICD lead(s). 9. There is mild aortic valve sclerosis. 10. The mitral valve has a mildly calcified annulus. 11. There is trace mitral valve regurgitation. 12. There is mild tricuspid valve regurgitation. 13. Mild pulmonary hypertension, estimated pulmonary arterial systolic pressure is 45 mmHg. UTI Reports suprapubic pressure, frequency, no dysuria. no fever flank pain. Prior urine culture grew E coli pansensitive. UA +, Culture pending at discharge Ceftiraxone x1 then continued nitrofurantion x5 days Status at Discharge Cognitive/behavioral status at discharge: A&Ox4 Time Spent with Patient Time attestation: Total time spent providing and/or coordinating discharge services:57 minutes Exam Narrative: General - Awake and alert. No acute distress Eyes - PERRLA, EOM intact ENT - No thrush, No erythema Neck - No noticeable or palpable swelling Lymph Nodes - No lymphadenopathy Cardiovascular - RRR no m/r/g, no JVD Lungs: Clear to auscultation, No wheezing, use of accessory muscles, no crackles Skin - Skin warm and dry, no wounds or rashes Abdomen - Normal bowel sounds, abdomen soft and nontender Extremities - No edema, cyanosis or clubbing Musculoskeletal - 5/5 strength, normal range of motion, no swollen or erythematous joints. Neurological ? Alert and oriented x 3, CN 2-12 grossly intact. Psych: Normal mood and affect DS: Data Data Completed and Pending Labs on day of discharge: Labs from last 24 hours 01/14/25 01/13/25 06:43 21:07 WBC 5.4 6.8 RBC 3.33 L 3.18 L Hgb 8.0 L 7.7 L Hct 26.7 L 25.2 L MCV 80.2 79.2 L MCH 24.0 L 24.2 L MCHC 30.0 L 30.6 L RDW 13.1 13.2 Plt Count 247 238 MPV 10.7 H 9.7 Immature Gran % (Auto) 0.4 Neut % (Auto) 64.5 Lymph % (Auto) 20.0 [place] % (Auto) 11.2 H Eos % (Auto) 2.8 Baso % (Auto) 1.1 Lymph # (Auto) 1.09 [place] # (Auto) 0.6 Eos # (Auto) 0.2 Baso # (Auto) 0.1 Abs Immat Gran (auto) 0.02 Absolute Neuts (auto) 3.5 Absolute Nucleated RBC 0.000 Nucleated RBC % 0.0 Sodium 135 L Potassium 4.0 Chloride 108 H Carbon Dioxide 21 L Anion Gap 6 BUN 10 Creatinine 0.74 Estim Creat Clear Calc 57 Estimated GFR > 60 Glucose 91 Calcium 9.4 Magnesium 2.1 Vitamin B12 954.0 H Discharge Plan Discharge Attending physician on discharge: Rosalba Flores Discharging Clinician: Rosalba Flores Anticipated Discharge Date/Time: 01/14/25 08:13 Patient Disposition: Home Activity: no shower Diet: as tolerated Discharge Instructions: Follow up with your PCP in 1-2 weeks. Called to schedule EGD and Colonoscopy with Dr. Ryan's office, . Unable to schedule today but they will call you back. If unable to schedule soon (1-2 weeks), discuss restarting Xarelto with your PCP or cardiology. Labs in about a week. Come back to the hospital for increased shortness of breath or dizziness, new bloody or black stools. Patient Instructions: Antibiotic Form Patient Language: Tajik Stand Alone Forms: General Discharge Information Follow-up/Referrals: Demi Gonzalez MD [Primary Care Provider] - 2 Weeks Deuce yRan MD [Physician] - 4 Weeks Discharge Medications: New Saline Mist 0.65 % Aerosol,[place] 1 spray intranasal Q6HR PRN (Reason: Dry Nasal Passages) Qty: 44 0RF nitrofurantoin monohyd/m-cryst [Macrobid] 100 mg Capsule 100 mg PO Q12HR 5 Days Qty: 10 0RF Continued Calcium 600 + D(3) 1 tab-cap PO DAILY clotrimazole-betamethasone 1-0.05 % cream 1 applic topical BID PRN (Reason: IRRITATION) Rx Instructions: APPLY TO VAGINA cyanocobalamin (vitamin B-12) 1,000 mcg tablet 1,000 mcg PO DAILY lisinopril 40 mg tablet 40 mg PO DAILY Qty: 90 2RF Rx Instructions: TAKE 1 TABLET BY MOUTH DAILY ezetimibe [Zetia] 10 mg tablet 10 mg PO DAILY Qty: 90 3RF Held Xarelto 20 mg tablet 20 mg PO QPM Hold Instructions: Resume on 01/28/25. Hold until after scope with GI or as directed by your PCP or cardiology Date of admission: 01/13/25 01:55 Primary Care Provider: Demi Gonzalez Admitting Provider: Marry Caldera Attending physician on admission: Rosalba Flores Condition: Stable Hospitalist MIPS Heart Failure (Exclusion) Patient has history of Heart Transplant or Left Ventricular Assistive Device?: No IF YES, STOP HERE Heart Failure (Qualifier) Patient has current or prior documentation of LVEF less than or equal to 40%, or mod/servere depressed LVSF?: No IF NO, STOP HERE
[2025-01-14] MEDS: CYANOCOBALAMIN 1,000 MCG TABLET 1000 MCG PO (08:39)
[2025-01-14] MEDS: EZETIMIBE 10 MG TABLET PO (08:39)
[2025-01-14] MEDS: PANTOPRAZOLE SODIUM IV 40 MG VIAL IV PUSH (08:39)
[2025-01-14] MEDS: lisinopriL 20 MG TABLET 40 MG PO (08:39)
[2025-01-14] MEDS: IRON SUCROSE COMPLEX 400 MG in SODIUM CHLORIDE 0.9% IV 250 ML 108 MG IVPB (09:27)
[2025-01-14 11:15] LABS: Add Urine Microscopic? YES; Appearance Urine Turbid (Clear); Bacteria Urine 2+ /hpf; Bilirubin Urine 1+ (Negative); Blood Urine 3+ (Negative); Color Urine Dark Yellow (Yellow); Glucose Urine UA Negative (Negative); Ketones Urine Trace mg/dL (Negative); Leukocyte Esterase Ur 3+ LEU/UL (Negative); Need Manual Microscopic Reviewed; Nitrate Urine Positive (Negative); Non Pathogenic Casts 0-2; Protein Urine 2+ mg/dL (Negative); RBC Urine >100 /hpf (0-2); Squamous Epithelial Cell Urine Occasional /hpf (Few); WBC Urine >100 /hpf (0-3); pH Urine 5.5 (5.0-9.0)
== END 2025-01-14 15:26 | disposition home or self-care (01) ==
LOC: ANHED 19:06 → ANH3MEDSUR 01-13 02:36
PROVIDERS: Emergency Medicine; Physician Assistant; Admitting Provider Internal Medicine; Emergency Provider Student in an Organized Health Care Education/Training Program; PCP Family Medicine; Visit Provider Nurse Practitioner Acute Care
DX: D62 Acute posthemorrhagic anemia (principal); D50.9 Iron deficiency anemia, unspecified; N39.0 Urinary tract infection, site not specified; I48.91 Unspecified atrial fibrillation; I10 Essential (primary) hypertension; E78.5 Hyperlipidemia, unspecified; E53.8 Deficiency of other specified B group vitamins; Z79.01 Long term (current) use of anticoagulants; Z79.899 Other long term (current) drug therapy; Z87.891 Personal history of nicotine dependence; Z95.0 Presence of cardiac pacemaker
CPT/HCPCS: 36415; 71046; 74177; 80048; 80053; 81001; 82607; 82728; 82746; 83540; 83550; 83735; 83880; 84466; 84484; 85025; 85027; 85046; 85610; 85730; 86850; 86900; 86901; 87077; 87086; 87186; 93005; 93306; 96365; 96366; 96375; 96376; 99285; A9270; G0378; J0696; J1756; J2470; J7050; Q9967

== ENCOUNTER 2025-01-19 01:55 | Day surgery (SDC) | payer MEDICARE, SELFPAY ==
[2025-01-15 14:16] VITALS: BMI 30.9
--- NOTE | 2025-01-18 10:18 | PC.NURSE ---
Spoke with patient, she states she feels better today, rested most of weekend. Discussed that she should make sure she drinks plenty of fluids during prep with her low counts. She should be careful when getting up and down especially once she starts prep in case of dizziness, and to call 911 if she has severe dizziness. She is coming in a 0800, 30 minutes early so we can draw stat H&H prior to procedure-per Dr. Garg verbal order.
--- OUTSIDE RECORDS SUMMARY | 2025-01-19 02:00 | XMS_ITS | Clinical Summary ---
Author Organization [facility] Address [address] [place] [address] Care Team Providers Care Assigner Name Role Phone Demi Gonzalez MD Primary Care Provider [phone] Allergies No known active allergies Medications ezetimibe [...] 12/12/2018 Assessment & Plan (09/09/2019 2:07 PM VELVET CUTTER): Improving with exercise No specific therapy needed Encouraged an exercise program to improve stamina and her functional capacity. Assessment & Plan (07/20/2019 2:51 PM VELVET CUTTER): The differential diagnosis for dyspnea includes: - [...] an office visit and twelve- lead ECG. 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 I have therefore recommended that she remain anticoagulated for thromboprophylaxis. We will see the patient back 1 month post cardioversion. Assessment & Plan (12/15/2019 1:11 PM CDT): The patient has a GOU6HA6-JMHv score of 3 (annualized risk of stroke 3%). I have therefore recommended that she remain anticoagulated for thromboprophylaxis. The patient will follow-up with me in 6 months for an office visit and twelve- lead ECG. Assessment & Plan (12/12/2018 3:52 PM CDT): The patient has a SGX1WG3-AKYc score of 3 (annualized risk of stroke 3%). I have therefore recommended that she remain anticoagulated for thromboprophylaxis. Assessment & Plan (09/10/2018 2:06 PM VELVET CUTTER): The patient has a XWM2JB8-MDLe score of 3 (annualized risk of stroke 3%). I have therefore recommended that she remain anticoagulated for thromboprophylaxis. The patient will follow-up with me in 6 months for an office visit and twelve- lead ECG. Assessment & Plan (08/05/2018 2:42 PM VELVET CUTTER): The patient has a AHO5YZ5-INVh score of 3 (annualized risk of stroke 3%). I have therefore recommended that she remain anticoagulated for thromboprophylaxis. Assessment & Plan (03/08/2018 11:06 AM CDT): The patient has a WMF3YN3-OHEz score of 3 (annualized risk of stroke 3.2 %). I have therefore recommended that she remain anticoagulated for thromboprophylaxis. The patient will follow-up with me in 6 months for an office visit and twelve- lead ECG. Assessment & Plan (09/09/2017 12:39 PM VELVET CUTTER): The patient has a TGE0XO2-OUHg score of 3 (annualized risk of stroke 3.2 %). I have therefore recommended that she remain anticoagulated for thromboprophylaxis. The patient will follow-up with me in 6 months for an office visit and twelve- lead ECG. Assessment & Plan (06/02/2017 2:56 PM CDT): The patient has a JLC7LH4-XVHv score of 3 (annualized risk of stroke 3.2 %). I have therefore recommended that she remain anticoagulated for thromboprophylaxis. The patient will follow-up with me in 6 months for an office visit and twelve- lead ECG. Assessment & Plan (04/04/2017 11:27 AM CDT): The patient has a JDL1ML6-JQXl score of 3 (annualized risk of stroke 3.2 %). I have therefore recommended that she remain anticoagulated. The patient will follow-up with me in 3 months for an office visit and twelve- lead ECG. Assessment & Plan (02/24/2017 2:32 PM CDT): The patient has a EBA1ZI7-DJRd score of 2 (annualized risk of stroke [...] 017 Assessment & Plan (06/22/2020 2:08 PM VELVET CUTTER): 12-lead ECG today does not demonstrate any [...] toxicity. Assessment & Plan (09/10/2018 2:04 PM VELVET CUTTER): 12-lead ECG today does not demonstrate any [...] checks when necessary. The patient has a LZZ1MS9-ILKc score of 3 (annualized risk of stroke [...] checks when necessary. The patient has a LGM9WR4-HNSz score of 4 (annualized risk of stroke 4%). I have therefore recommended continued anticoagulation for thromboprophylaxis. Assessment & Plan (04/15/2022 2:08 PM CDT): Persistent atrial fibrillation. Now status post PATROL CAPTAIN-pacemaker/AV junction ablation, and doing well. This has [...] ECG. Assessment & Plan (06/22/2020 2:08 PM VELVET CUTTER): Persistent atrial fibrillation, recurrent despite ablation and [...] medication. Assessment & Plan (09/10/2018 2:04 PM VELVET CUTTER): The patient is 18 months status post repeat ablation for persistent atrial fibrillation/flutter. She is 1 month status post cardioversion. The patient is maintaining sinus rhythm with sotalol. We will continue to monitor and follow closely, and manage new / recurrent arrhythmia expectantly. Assessment & Plan (08/05/2018 2:39 PM VELVET CUTTER): The patient is over a year status [...] expectantly. Assessment & Plan (09/09/2017 12:34 PM VELVET CUTTER): The patient is 6 months status post [...] CDT Ancillary Procedure Arrhythmia Center [address] [facility] [address] [place] [id number] Pacemaker (Primary Dx); CHB (complete heart [...] on file Legal Sex Female 3:54 AM VELVET CUTTER Gender Identity Female 04/12/2021 6:26 AM CDT [...] history exists Medical Devices Implanted Type Area Licensed Guide Device Identifier Shelf Expiration Date Model / Serial / Lot [employer] [id number] System 6-12fr Mvp Venous Closure Vascade - [id number] - [id number] Implanted:Qty: 1 on 08/31/2020 by William Serra MD at [facility] Collagen Left: Groin [employer] 06/15/2022 800-612C -10U / [id number] 028A / [id number] 028A [employer] [id number] System 6-12fr Mvp Venous Closure Vascade - [id number] - [id number] Implanted:Qty: 1 on 08/31/2020 by William Serra MD at [facility] Collagen Right: Groin [employer] 06/15/2022 800-612C -10U / [id number] 028A / [id number] 028A [employer] [id number] System 6-12fr Mvp Venous Closure Vascade - [id number] - [id number] Implanted:Qty: 1 on 08/31/2020 by William Serra MD at [facility] Collagen Right: Groin [employer] 06/28/2022 800-612C -10U / [id number] 111B / [id number] 111B [employer] [id number] System 6-12fr Mvp Venous Closure Vascade - [id number] - [id number] Implanted:Qty: 1 on 08/31/2020 by William Serra MD at [facility] Collagen Right: Groin [employer] 06/28/2022 800-612C -10U / [id number] 111B / [id number] 111B Medtronic Inc [id number] Lead Attain Stability Quad Mri Surescan Lv 88mm - [id number] - [id number] Implanted:Qty: 1 on 03/13/2021 by William Serra MD at [facility] Lead [employer] Inc [id number] 12/22/2022 479 888 / [id number] / Medtronic Cardiac Rhythm Mgmt 5076-52 Capsurefix Novus 6.2fr 2mm 52cm Bipolar Screw In Implantable Latex Free - [id number] - [id number] Implanted:Qty: 1 on 03/13/2021 by William Serra MD at [facility] Lead [employer] Inc [id number] 01/06/2023 507 6-52 / [id number] / Medtronic Cardiac Rhythm Mgmt [id number] Solara Mri Surescan Bluetooth 46.5x59mm Connector Hole Radiopaque - [id number] - [id number] Implanted:Qty: 1 on 03/13/2021 by William Serra MD at [facility] Pacemaker [employer] Inc [id number] 07/16/2022 W4T R03 / [id number] [id number] / Procedures Procedure Name Priority Date/Time [...] Final Result from Last 3 Months Insurance [facility] [employer] MEDICARE ADVANTAGE [facility] [employer] Advance Directives For more information, please contact: [phone] * Full Code (Latest Code Status on File) Date Activated Date Inactivated Comments 03/13/2021 9:08 PM 03/14/2021 3:24 PM * Full Code Date Activated Date Inactivated Comments 08/31/2020 5:59 PM 09/01/2020 2:40 PM Care Teams Assigner Relationship Specialty Start Date End Date Demi Gonzalez MD PCP - General Family Medicine 04/25/21
--- OUTSIDE RECORDS SUMMARY | 2025-01-19 02:00 | XMS_ITS | Encounter Summary ---
Author Organization [facility] Address [address] [facility] [address] [place] [address] Care Team Providers Care License Clerk Name Role Phone Sandoval Reese MD Primary Care Provider [phone] Sandoval Reese MD Primary Care Provider + [phone] Uche Bond Primary Care Provider [phone] Demi Gonzalez MD Primary Care Provider [phone] Encounter Details Date Type Department Care Team (Late st Contact Info) Description 10/29/2016 Orders Only Arrhythmia Center ProviderJaydon MD [address] [place] [address] Social History Tobacco Use Types Packs/Day Years Used Date Smoking Tobacco: Never Alcohol Use Standard Drinks/Week Comments Yes 0 (1 standard drink = 0.6 oz pur e alcohol) Comments Unknown Sex and Gender Information Value Date Recorded Sex Assigned at Not on file 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 [employer]S Gender Identity Female 04/12/2021 6:26 AM CDT [...] on filedocumented in this encounter Care Teams License Clerk Relationship Specialty Start Date End Date Sandoval Reese MD [address] [place] [address] PCP - General 11/16/16 07/23/18 Sandoval Reese MD [address] [address] PCP - General 07/25/16 11/15/16 Uche Bond PA [address] [place] [address] PCP - General 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
--- OUTSIDE RECORDS SUMMARY | 2025-01-19 02:00 | XMS_ITS | Encounter Summary ---
Author Organization [facility] Address [address] [facility] [address] [place] [address] Care Team Providers Care Financial Reporting Specialist Name Role Phone Sandoval Reese MD Primary Care Provider + [phone] Sandoval Reese MD Primary Care Provider + [phone] Uche Bond Primary Care Provider [phone] Demi Gonzalez MD Primary Care Provider [phone] Encounter Details Date Type Department Care Team (Late st Contact Info) Description 10/18/2016 Orders Only Arrhythmia Center ProviderJaydon MD [address] [place] [address] Social History Tobacco Use Types Packs/Day Years Used Date Smoking Tobacco: Never Alcohol Use Standard Drinks/Week Comments Yes 0 (1 standard drink = 0.6 oz pur e alcohol) Comments Unknown Sex and Gender Information Value Date Recorded Sex Assigned at Not on file 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 Gender Identity Female 04/12/2021 6:26 AM CDT [...] on filedocumented in this encounter Care Teams Financial Reporting Specialist Relationship Specialty Start Date End Date Sandoval Reese MD [address] [place] [address] PCP - General 11/16/16 07/23/18 Sandoval Reese MD [address] [place] [address] PCP - General 07/25/16 11/15/16 Uche Bond PA [address] [place] [address] PCP - General 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
--- OUTSIDE RECORDS SUMMARY | 2025-01-19 02:00 | XMS_ITS | Encounter Summary ---
Author Organization [facility] Address [address] [facility] [place] [address] Care Team Providers Care Check Inspector Name Role Phone Demi Gonzalez MD Primary Care Provider [phone] Encounter Details Date Type Department Care Team (Late st Contact Info) Description 01/12/2022 Lab Requisition [facility] [address] [place] [address] Christian Damico MD [address] [facility] [place] [address] Social History Tobacco Use Types Packs/Day Years [...] AM CDT) Case Report Dermatopathology Report Case: [id number] Authorizing Provider: Christian Damico MD Collected: 01/11/2022 12:00 AM Ordering Location: [facility] Received: 01/12/2022 04:48 PM Pathologist: Shani Salazar MD Specimen: Skin, left 5th toe 2 4:11 PM CDT DERMATOPATHOLOGY LABORATORY Final Diagnosis Specimen A. SKIN, left 5th toe: HEMORRHAGE WITHIN THE CORNIFIED LAYER (CHANGES TYPICAL OF BLOOD BLISTER) (R23.3) (see microscopic description and comment) 2 4:11 PM CDT DERMATOPATHOLOGY LABORATORY at 1611 CDT Clinical History Nevus vs MM vs blood. Path # [id number]. 2 4:11 PM CDT DERMATOPATHOLOGY LABORATORY Gross Description Specimen A: Received is one formalin filled container labeled with the patient's name and designated left 5th toe. The specimen consists of a shave biopsy measuring [id number]. Jar 0. 4:11 PM CDT DERMATOPATHOLOGY LABORATORY [...] characteristic determined by the Dermatopathology Laboratory at [facility], directed by Dr. Jacky Morales. These tests need not be, and therefore are not, approved by the [place] Food and Drug Administration. The tests are used for clinical purposes. Billing Codes Specimen Charges Stain Charges 89388 1 2 4:11 PM CDT DERMATOPATHOLOGY LABORATORY Embedded Images 2 4:11 PM CDT DERMATOPATHOLOGY LABORATORY Pathology/Cytolog y TISSUE SPECIMEN FROM SKIN / Unknown 01/11/2022 01/12/2022 4:48 PM CDT us Christian Damico MD LAB - PATHOLOGY/CYTOLOGY ORDER MOE Final Result DERMATOPATHOLOGY LABORATORY [facility] - Department of Dermatology [facility] [address] [place] [address], [address] [phone] documented in this encounter Visit Diagnoses Not on filedocumented in this encounter Care Teams Check Inspector Relationship Specialty Start Date End Date Demi Gonzalez MD [address] [place] [address] PCP - General 09/25/22 documented as of this encounter
--- OUTSIDE RECORDS SUMMARY | 2025-01-19 02:00 | XMS_ITS | Clinical Summary ---
Author Organization [facility] Address [address] [place] [address] Care Team Providers Care Rehab Tech Name Role Phone Demi Gonzalez MD Primary Care Provider Source Comments [facility],non-owned Affiliates and Associated Physician Practices is amultiple site organization consisting of ambulatory clinics and hospital sitesin [place], [place], [place] and [place]. This disclosure is being madepursuant to the Care Everywhere program and may not contain all information available regarding this patient. Last updated 18.[facility] Allergies No known active allergies Medications * [...] Recorded Patient Health Questionnaire-2 Score 0 09/08/2024 [facility] [place] [facility] Occupat ional Health - Occupational Stress [...] place to sleep or slept in a halfway (including now)? No 09/02/2022 Comments No Sex [...] this topic Medical Devices Implanted Type Area Mounter Brass Wind Instruments Device Identifier Shelf Expiration Date Model / Serial / Lot Nail Im 10mm 38cm Trgn Mt-Nail Fem Rtrgd Implanted:Qty: 1 on 09/03/2022 by Richard Tam MD at [facility] Left: Femur [employer] 11/22/2030 [id number] / / [id number] Screw 5mm 70mm Lopro Intnl Hex Fem Trgn Implanted:Qty: 1 on 09/03/2022 by Richard Tam MD at [facility] Left: Femur [employer] 09/29/2025 [id number] / / [id number] Screw 5mm 45mm Lopro Intnl Hex Fem Trgn Implanted:Qty: 1 on 09/03/2022 by Richard Tam MD at [facility] Left: Femur [employer] 03/27/2029 [id number] / / [id number] Screw 5mm 57mm Lopro Intnl Hex Fem Trgn Implanted:Qty: 1 on 09/03/2022 by Richard Tam MD at [facility] Left: Femur [employer] 07/24/2031 [id number] / / [id number] Screw 5mm 35mm Lopro Intnl Hex Fem Trgn Implanted:Qty: 1 on 09/03/2022 by Richard Tam MD at [facility] Left: Femur [employer] 02/12/2032 [id number] / / [id number] Explanted Type Area Mounter Brass Wind Instruments Device Identifier Shelf Expiration Date Model / Serial / Lot Screw 5mm 75mm Lopro Intnl Hex Fem Trgn Explanted:Qty : 1 on 09/03/2022 by Richard Tam MD at [facility] Left: Femur [employer] [id number] 09/30/2028 [id number] / / [id number] [address] [place] [address] [place] [address] Advance Directives * Full Code (Latest Code Status on File) Date Activated Date Inactivated Comments 12/10/2022 7:47 AM 12/10/2022 2:19 PM * Full Code Date Activated Date Inactivated Comments 09/02/2022 2:16 AM 09/19/2022 7:47 PM Care Teams Rehab Tech Relationship Specialty Start Date End Date Demi Gonzalez MD [address] [place] [address] PCP - General 09/25/22
--- OUTSIDE RECORDS SUMMARY | 2025-01-19 02:00 | XMS_ITS | Encounter Summary ---
Author Organization [facility] Address [address] [facility] [address] [place] [address] Care Team Providers Care Candy Depositing Machine Operator Name Role Phone Sandoval Reese MD Primary Care Provider + [phone] Sandoval Reese MD Primary Care Provider + [phone] Uche Bond Primary Care Provider [phone] Demi Gonzalez MD Primary Care Provider [phone] Encounter Details Date Type Department Care Team (Late st Contact Info) Description 08/13/2016 Orders Only Ar[facility]hythmia Center ProviderJaydon MD [address] [place] [address] Social History Tobacco Use Types Packs/Day Years Used Date Smoking Tobacco: Never Alcohol Use Standard Drinks/Week Comments Yes 0 (1 standard drink = 0.6 oz pur e alcohol) Comments Unknown Sex and Gender Information Value Date Recorded Sex Assigned at Not on file Legal Sex Female 3:54 AM LITIGATION ATTORNEY ASSOCIATE Gender Identity Female 04/12/2021 6:26 AM CDT [...] on filedocumented in this encounter Care Teams Candy Depositing Machine Operator Relationship Specialty Start Date End Date Sandoval Reese MD [address] [place] [address] PCP - General 11/16/16 07/23/18 Sandoval Reese MD [address] [place] [address] PCP - General 07/25/16 11/15/16 Uche Bond PA [address] [facility] [address] [place] [address] PCP - General Physician Cracker And Cookie Machine Operator 10/28/20 04/24/21 Demi Gonzalez MD [address] [place] [address] PCP - General Family Medicine 04/25/21 documented as of this encounter
--- OUTSIDE RECORDS SUMMARY | 2025-01-19 02:00 | XMS_ITS | Encounter Summary ---
Author Organization [facility] Address [address] [facility] [address] [place] [address] Care Team Providers Care Blowing Weasand Name Role Phone Sandoval Reese MD Primary Care Provider + [phone] Sandoval Reese MD Primary Care Provider + [phone] Uche Bond Primary Care Provider [phone] Demi Gonzalez MD Primary Care Provider [phone] Encounter Details Date Type Department Care Team (Late st Contact Info) Description 10/22/2016 Orders Only Arrhythmia Center ProviderJaydon MD [address] [place] [address] Social History Tobacco Use Types Packs/Day Years Used Date Smoking Tobacco: Never Alcohol Use Standard Drinks/Week Comments Yes 0 (1 standard drink = 0.6 oz pur e alcohol) Comments Unknown Sex and Gender Information Value Date Recorded Sex Assigned at Not on file Legal Sex Female 3:54 AM INVESTMENT ANALYST Gender Identity Female 04/12/2021 6:26 AM CDT [...] on filedocumented in this encounter Care Teams Blowing Weasand Relationship Specialty Start Date End Date Sandoval Reese MD [address] [place] [address] PCP - General 11/16/16 07/23/18 Sandoval Reese MD [address] [place] [address] PCP - General 07/25/16 11/15/16 Uche Bond PA [address] [place] [address] PCP - General Physician Recruiting Assistant 10/28/20 04/24/21 Demi Gonzalez MD [address] [place] [address] PCP - General Family Medicine 04/25/21 documented as of this encounter
--- OUTSIDE RECORDS SUMMARY | 2025-01-19 02:01 | XMS_ITS | Referral Summary ---
Author Organization [facility] Address [address] [place] [address] Care Team Providers Care Principal Security Architect Name Role Phone Demi Gonzalez MD Primary Care Provider [phone] Encounters Date Type Department Care Team Description 12/07/2024 11:30 AM CDT Ancillary Procedure Arrhythmia Center [address] [facility] [address] [place] [address] Pacemaker (Primary Dx); CHB (complete [...] 12/12/2018 Assessment & Plan (09/09/2019 2:07 PM PROCED TECH): Improving with exercise No specific therapy needed Encouraged an exercise program to improve stamina and her functional capacity. Assessment & Plan (07/20/2019 2:51 PM PROCED TECH): The differential diagnosis for dyspnea includes: - [...] an office visit and twelve- lead ECG. 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 I have therefore recommended that she remain anticoagulated for thromboprophylaxis. We will see the patient back 1 month post cardioversion. Assessment & Plan (12/15/2019 1:11 PM CDT): The patient has a UWE9UF5-TQEo score of 3 (annualized risk of stroke 3%). I have therefore recommended that she remain anticoagulated for thromboprophylaxis. The patient will follow-up with me in 6 months for an office visit and twelve- lead ECG. Assessment & Plan (12/12/2018 3:52 PM CDT): The patient has a OXP1RG9-XWTr score of 3 (annualized risk of stroke 3%). I have therefore recommended that she remain anticoagulated for thromboprophylaxis. Assessment & Plan (09/10/2018 2:06 PM PROCED TECH): The patient has a WQQ0BY6-GWCq score of 3 (annualized risk of stroke 3%). I have therefore recommended that she remain anticoagulated for thromboprophylaxis. The patient will follow-up with me in 6 months for an office visit and twelve- lead ECG. Assessment & Plan (08/05/2018 2:42 PM PROCED TECH): The patient has a QXO7RF7-JFTl score of 3 (annualized risk of stroke 3%). I have therefore recommended that she remain anticoagulated for thromboprophylaxis. Assessment & Plan (03/08/2018 11:06 AM CDT): The patient has a ZSK8EI8-XBDj score of 3 (annualized risk of stroke 3.2 %). I have therefore recommended that she remain anticoagulated for thromboprophylaxis. The patient will follow-up with me in 6 months for an office visit and twelve- lead ECG. Assessment & Plan (09/09/2017 12:39 PM PROCED TECH): The patient has a KWI1MH4-ROQe score of 3 (annualized risk of stroke 3.2 %). I have therefore recommended that she remain anticoagulated for thromboprophylaxis. The patient will follow-up with me in 6 months for an office visit and twelve- lead ECG. Assessment & Plan (06/02/2017 2:56 PM CDT): The patient has a MZT2NE8-UQDg score of 3 (annualized risk of stroke 3.2 %). I have therefore recommended that she remain anticoagulated for thromboprophylaxis. The patient will follow-up with me in 6 months for an office visit and twelve- lead ECG. Assessment & Plan (04/04/2017 11:27 AM CDT): The patient has a WSJ6GT7-NSDc score of 3 (annualized risk of stroke 3.2 %). I have therefore recommended that she remain anticoagulated. The patient will follow-up with me in 3 months for an office visit and twelve- lead ECG. Assessment & Plan (02/24/2017 2:32 PM CDT): The patient has a YPA2LZ3-RWGr score of 2 (annualized risk of stroke [...] 017 Assessment & Plan (06/22/2020 2:08 PM PROCED TECH): 12-lead ECG today does not demonstrate any [...] toxicity. Assessment & Plan (09/10/2018 2:04 PM PROCED TECH): 12-lead ECG today does not demonstrate any [...] checks when necessary. The patient has a SNX1FH5-PLOr score of 3 (annualized risk of stroke [...] checks when necessary. The patient has a FYX6MS1-KKGe score of 4 (annualized risk of stroke 4%). I have therefore recommended continued anticoagulation for thromboprophylaxis. Assessment & Plan (04/15/2022 2:08 PM CDT): Persistent atrial fibrillation. Now status post COLLECTIONS AND ARCHIVES DIRECTOR-pacemaker/AV junction ablation, and doing well. This has [...] ECG. Assessment & Plan (06/22/2020 2:08 PM PROCED TECH): Persistent atrial fibrillation, recurrent despite ablation and [...] medication. Assessment & Plan (09/10/2018 2:04 PM PROCED TECH): The patient is 18 months status post repeat ablation for persistent atrial fibrillation/flutter. She is 1 month status post cardioversion. The patient is maintaining sinus rhythm with sotalol. We will continue to monitor and follow closely, and manage new / recurrent arrhythmia expectantly. Assessment & Plan (08/05/2018 2:39 PM PROCED TECH): The patient is over a year status [...] expectantly. Assessment & Plan (09/09/2017 12:34 PM PROCED TECH): The patient is 6 months status post [...] on file Legal Sex Female 3:54 AM PROCED TECH Gender Identity Female 04/12/2021 6:26 AM CDT [...] on file Medical Devices Implanted Type Area Spun Paste Machine Operator Device Identifier Shelf Expiration Date Model / Serial / Lot [employer] [id number] System 6-12fr Mvp Venous Closure Vascade - [id number] - [id number] Implanted:Qty: 1 on 08/31/2020 by William Serra MD at [facility] Collagen Left: Groin [employer] 06/15/2022 800-612C -10U / [id number] / [id number] [employer] [id number] System 6-12fr Mvp Venous Closure Vascade - [id number] - [id number] Implanted:Qty: 1 on 08/31/2020 by William Serra MD at [facility] Collagen Right: Groin [employer] 06/15/2022 800-612C -10U / [id number] / [id number] [employer] [id number] System 6-12fr Mvp Venous Closure Vascade - [id number] - [id number] Implanted:Qty: 1 on 08/31/2020 by William Serra MD at [facility] Collagen Right: Groin [employer] 06/28/2022 800-612C -10U / [id number] / [id number] [employer] [id number] System 6-12fr Mvp Venous Closure Vascade - [id number] - [id number] Implanted:Qty: 1 on 08/31/2020 by William Serra MD at [facility] Collagen Right: Groin [employer] 06/28/2022 800-612C -10U / [id number] 111B / [id number] Med[employer] Inc [id number] Lead Attain Stability Quad Mri Surescan Lv 88mm - [id number] - [id number] Implanted:Qty: 1 on 03/13/2021 by William Serra MD at [facility] Lead [employer] Inc [id number] 12/22/2022 [id number] 888 / [id number] / Medtronic Cardiac Rhythm Mgmt 5076-52 Capsurefix Novus 6.2fr 2mm 52cm Bipolar Screw In Implantable Latex Free - [id number] - [id number] Implanted:Qty: 1 on 03/13/2021 by William Serra MD at [facility] Lead [employer] Inc [id number] 01/06/2023 507 6-52 / [id number] / Medtronic Cardiac Rhythm Mgmt [id number] Solara Mri Surescan Bluetooth 46.5x59mm Connector Hole Radiopaque - [id number] - [id number] Implanted:Qty: 1 on 03/13/2021 by William Serra MD at [facility] Pacemaker [employer] Inc [id number] 07/16/2022 W4T R03 / [id number] / Procedures Procedure Name Priority Date/Time [...] from Last 3 Months Insurance AETNA MEDICARE [facility] MEDICARE ADVANTAGE [facility] MEDICARE [facility] [place] [address] Advance Directives For more information, please contact: [phone] * Full Code (Latest Code Status on File) Date Activated Date Inactivated Comments 03/13/2021 9:08 PM 03/14/2021 3:24 PM * Full Code Date Activated Date Inactivated Comments 08/31/2020 5:59 PM 09/01/2020 2:40 PM Care Teams Principal Security Architect Relationship Specialty Start Date End Date Demi Gonzalez MD PCP - General Family Medicine 04/25/21
[2025-01-19 08:42] VITALS: BP 184/56; PULSE 80; RESP 18; TEMP 36.1; O2SAT 99; BMI 27.8
[2025-01-19] MEDS: LACTATED RINGERS 1,000 ML 150 ML IV CONT (08:56)
[2025-01-19 08:57] LABS: Hematocrit 29.5 % (37.0-47.0); Hemoglobin 8.8 g/dL (12.0-15.0)
--- NOTE | 2025-01-19 09:09 | P.PNAN_ITS ---
Anes - Initial Pre Proc Eval Procedure: Operation Date: 01/19/25 10:00 Proposed Procedures p Esophagogastroduodenoscopy & Colonoscopy - Liam Drummond MD Date/Time: 01/19/25 09:09 Surgeon: Liam Drummond MD Pre Op Diagnosis: Acute posthemorrhagic anemia Patient Data Age: 79 Gender: F Height: 1.63 m Weight: 73.5 kg Last Vital Signs Temp 36.1 C L 01/19/25 08:42 Pulse 80 01/19/25 08:42 Resp 18 01/19/25 08:42 BP 184/56 H 01/19/25 08:42 Pulse Ox 99 01/19/25 08:42 O2 Del Method Room Air 01/19/25 08:42 Allergies Allergy/AdvReac Type Severity Reaction Status Date / Time No Known Allergies Allergy Verified 01/19/25 08:37 Home Medications ?Medication ?Instructions ?Recorded ?Confirmed ?Type cyanocobalamin (vitamin B-12) 1,000 mcg PO DAILY 07/14/19 01/15/25 History 1,000 mcg tablet rivaroxaban 20 mg tablet (Xarelto) 20 mg PO QPM 07/14/19 01/15/25 History Calcium 600 + D(3) 1 tab-cap PO DAILY 07/31/22 01/15/25 History lisinopril 40 mg tablet 40 mg PO DAILY #90 tabs 02/12/24 01/19/25 Rx ezetimibe 10 mg tablet (Zetia) 10 mg PO DAILY #90 tabs 05/11/24 01/19/25 Rx clotrimazole-betamethasone 1 1 applic topical BID PRN IRRITATION 01/13/25 01/15/25 History %-0.05 % topical cream sodium chloride 0.65 % nasal spray 1 spray intranasal Q6HR PRN Dry 01/14/25 01/15/25 Rx aerosol (Saline Mist) Nasal Passages #44 mL Laboratory Tests 01/19/25 08:46 Hgb 8.8 L g/dL (12.0-15.0) Hct 29.5 L % (37.0-47.0) Patient hx anesthesia problems: none Family hx anesthesia problems: none Results Review: All pre-operative results and documents have been reviewed as part of the pre- operative evaluation. [facility] Past Medical History Medical History (Updated 01/18/25 @ 14:45 by Elpidio Crowley DO) Atrial fibrillation Abnormal CT scan Femur fracture, left History of pacemaker Exposure to COVID-19 virus Vitamin B12 deficiency Iron deficiency Hyperlipidemia Hypertension History of cardioversion Surgical History Surgical History History of appendectomy History of total knee replacement (TKR) H/O prior ablation treatment Family History Family History Mother Hypertension Cerebrovascular accident Family history of pancreatic cancer Family history of primary malignant neoplasm of liver Father Acute myocardial infarction Social History Social History Smoking status: Former smoker Second hand tobacco smoke exposure: No Alcohol intake: current Drinks per week: 3 Alcohol use details: WINE Substance use: never Substance use type: does not use Do You Feel Safe in your Home?: Yes Lack of Transportation: No Lack of Food: Never True Current Housing: I Have Housing Concerned About Future Housing: No Difficulty Paying Gas/Electric Bills: No Difficulty Paying for Meds: No Currently Unemployed: No Education: Master's Degree or Higher Difficulty w/ Childcare or Family Care: No Living arrangements: with family Occupation/Education: retired Gender identity (if verbalized by the patient): Female Spiritual care concerns: No Agree to blood products: Yes Anes - Eval Final PreProcedure Day of Procedure 01/19/25 09:09 Patient weight: overweight Heart: regular rate and rhythm Lungs: clear to auscultation Airway: Mallampati scale class II Neurological: alert and oriented Last oral intake: >/= 8 hours ASA classification: III Emergent: no Anesthetic plan: proceed Anesthesia type and monitoring: general GIVS and standard monitoring Results Review: All pre-operative results and documents have been reviewed as part of the pre- operative evaluation. Informed Consent: The patient's anesthetic plan and its attendant risks and benefits were discussed with the patient/family/POA. Questions were solicited and answers provided to the satisfaction of the patient/family/POA.
--- NOTE | 2025-01-19 09:15 | WPDHPUPDATE1 ---
History and Physical Update Update Date/Time: 01/19/25 09:15 History and Physical has been reviewed, including an updated exam of the patient. There are NO changes in the patient's condition. Risks, benefits, and alternatives have been discussed and questions answered. Patient agrees to proceed with procedure.
--- NOTE | 2025-01-19 09:30 | S_PTH ---
PATIENT: Viry Lyons LOC: [facility]#:[id number] AGE/SX: 79/F ROOM: RE01/19/[address]: Liam Drummond MD : 1945 BED: DIS: 01/19/2025 SPEC #: [id number] RECD: 01/19/25 11:08 STATUS: BRISA BRADSHAW #: [id number] AGATA: 01/19/25 09:[address]: Liam Drummond DEPT: [facility] Surgical RECD BY: Ashish Prasad ENTERED: 01/19/25 11:09 SP TYPE: Surgical OTHR DR: Demi GonzalezMD Tissues: A - Gastric Biopsy B - Small Bowel Bx Procedures: Hematoxylin and Eosin Stain Gross and Microscopic Level 4 H.Pylori
--- NOTE | 2025-01-19 09:34 | SUR.OPER ---
EGD: COLON: Start 926
[2025-01-19 09:38] VITALS: BP 118/48; PULSE 62; RESP 19; O2SAT 99
[2025-01-19 09:48] VITALS: BP 128/68; PULSE 66; RESP 21; O2SAT 99
[2025-01-19 09:54] VITALS: BP 141/76; PULSE 62; RESP 20; O2SAT 99
== END 2025-01-19 10:04 | disposition home or self-care (01) ==
PROVIDERS: PCP Family Medicine; Referring Provider Nurse Practitioner Family; Visit Provider Internal Medicine Gastroenterology
PROC: 0DJ08ZZ Inspection of Upper Intestinal Tract, Via Natural or Artificial Opening Endoscopic (ICD-10-PCS; CPT 45378; principal; 2025-01-19 10:00)
DX: R93.89 Abnormal findings on diagnostic imaging of other specified body structures (principal); D50.9 Iron deficiency anemia, unspecified; K29.50 Unspecified chronic gastritis without bleeding; K44.9 Diaphragmatic hernia without obstruction or gangrene; E78.5 Hyperlipidemia, unspecified; I10 Essential (primary) hypertension; E53.8 Deficiency of other specified B group vitamins; I48.91 Unspecified atrial fibrillation; Z79.01 Long term (current) use of anticoagulants; Z98.890 Other specified postprocedural states; Z95.0 Presence of cardiac pacemaker; Z87.891 Personal history of nicotine dependence; Z86.79 Personal history of other diseases of the circulatory system; Z80.0 Family history of malignant neoplasm of digestive organs; Z82.49 Family history of ischemic heart disease and other diseases of the circulatory system
CPT/HCPCS: 43239; 45378; 36415; 85014; 85018; 88305; 88342; J7120

== ENCOUNTER 2025-01-29 05:30 | Outpatient (CLI) | payer MEDICARE, SELFPAY ==
[2025-01-25 14:17] VITALS: BMI 30.9
--- OUTSIDE RECORDS SUMMARY | 2025-01-29 05:32 | XMS_ITS | Referral Summary ---
Author Organization [facility] Address [address] [place] [address] Care Team Providers Care Legal Secretary Receptionist Name Role Phone Demi Gonzalez MD Primary Care Provider [phone] Encounters Date Type Department Care Team Description 12/07/2024 11:30 AM CDT Ancillary Procedure Arrhythmia Center [address] [facility] [facility] [address] [place] [address] Pacemaker (Primary Dx); CHB (complete [...] 12/12/2018 Assessment & Plan (09/09/2019 2:07 PM MAINTENANCE ASSOCIATE): Improving with exercise No specific therapy needed Encouraged an exercise program to improve stamina and her functional capacity. Assessment & Plan (07/20/2019 2:51 PM MAINTENANCE ASSOCIATE): The differential diagnosis for dyspnea includes: - [...] 02/01/2017 Assessment & Plan (06/22/2020 2:10 PM MAINTENANCE ASSOCIATE): The patient has a XRL8OR9-GMOx score of 3 (annualized risk of stroke 3%). I have therefore recommended that she remain anticoagulated for thromboprophylaxis. We will see the patient back 1 month post cardioversion. Assessment & Plan (12/15/2019 1:11 PM CDT): The patient has a DEO5CQ3-ZJLp score of 3 (annualized risk of stroke 3%). I have therefore recommended that she remain anticoagulated for thromboprophylaxis. The patient will follow-up with me in 6 months for an office visit and twelve- lead ECG. Assessment & Plan (12/12/2018 3:52 PM CDT): The patient has a MHD2RL6-MEZj score of 3 (annualized risk of stroke 3%). I have therefore recommended that she remain anticoagulated for thromboprophylaxis. Assessment & Plan (09/10/2018 2:06 PM MAINTENANCE ASSOCIATE): The patient has a SPY3SF8-VSJl score of 3 (annualized risk of stroke 3%). I have therefore recommended that she remain anticoagulated for thromboprophylaxis. The patient will follow-up with me in 6 months for an office visit and twelve- lead ECG. Assessment & Plan (08/05/2018 2:42 PM MAINTENANCE ASSOCIATE): The patient has a PEN0RV3-HOGl score of 3 (annualized risk of stroke 3%). I have therefore recommended that she remain anticoagulated for thromboprophylaxis. Assessment & Plan (03/08/2018 11:06 AM CDT): The patient has a UTT8YZ8-AZWm score of 3 (annualized risk of stroke 3.2 %). I have therefore recommended that she remain anticoagulated for thromboprophylaxis. The patient will follow-up with me in 6 months for an office visit and twelve- lead ECG. Assessment & Plan (09/09/2017 12:39 PM MAINTENANCE ASSOCIATE): The patient has a DLF0NA9-HKOq score of 3 (annualized risk of stroke 3.2 %). I have therefore recommended that she remain anticoagulated for thromboprophylaxis. The patient will follow-up with me in 6 months for an office visit and twelve- lead ECG. Assessment & Plan (06/02/2017 2:56 PM CDT): The patient has a AJM7OL8-UZNm score of 3 (annualized risk of stroke 3.2 %). I have therefore recommended that she remain anticoagulated for thromboprophylaxis. The patient will follow-up with me in 6 months for an office visit and twelve- lead ECG. Assessment & Plan (04/04/2017 11:27 AM CDT): The patient has a YTX9TW7-YUXr score of 3 (annualized risk of stroke 3.2 %). I have therefore recommended that she remain anticoagulated. The patient will follow-up with me in 3 months for an office visit and twelve- lead ECG. Assessment & Plan (02/24/2017 2:32 PM CDT): The patient has a GVC1OK5-STNq score of 2 (annualized risk of stroke [...] 017 Assessment & Plan (06/22/2020 2:08 PM MAINTENANCE ASSOCIATE): 12-lead ECG today does not demonstrate any [...] toxicity. Assessment & Plan (09/10/2018 2:04 PM MAINTENANCE ASSOCIATE): 12-lead ECG today does not demonstrate any [...] checks when necessary. The patient has a ORP4HL9-CXWd score of 3 (annualized risk of stroke [...] checks when necessary. The patient has a PRG1ZL4-UGZd score of 4 (annualized risk of stroke 4%). I have therefore recommended continued anticoagulation for thromboprophylaxis. Assessment & Plan (04/15/2022 2:08 PM CDT): Persistent atrial fibrillation. Now status post CAPACITOR TESTER-pacemaker/AV junction ablation, and doing well. This has [...] ECG. Assessment & Plan (06/22/2020 2:08 PM MAINTENANCE ASSOCIATE): Persistent atrial fibrillation, recurrent despite ablation and [...] medication. Assessment & Plan (09/10/2018 2:04 PM MAINTENANCE ASSOCIATE): The patient is 18 months status post repeat ablation for persistent atrial fibrillation/flutter. She is 1 month status post cardioversion. The patient is maintaining sinus rhythm with sotalol. We will continue to monitor and follow closely, and manage new / recurrent arrhythmia expectantly. Assessment & Plan (08/05/2018 2:39 PM MAINTENANCE ASSOCIATE): The patient is over a year status [...] expectantly. Assessment & Plan (09/09/2017 12:34 PM MAINTENANCE ASSOCIATE): The patient is 6 months status post [...] on file Legal Sex Female 3:54 AM MAINTENANCE ASSOCIATE Gender Identity Female 04/12/2021 6:26 AM [...] on file Medical Devices Implanted Type Area Insurance Underwriting Assistant Device Identifier Shelf Expiration Date Model / Serial / Lot [employer] [id number] System 6-12fr Mvp Venous Closure Vascade - [id number] - [id number] Implanted:Qty: 1 on 08/31/2020 by William Serra MD at [facility] Collagen Left: Groin [employer] 06/15/2022 800-612C -10U / [id number] / [id number] [employer] [id number] System 6-12fr Mvp Venous Closure Vascade - [id number] - [id number] Implanted:Qty: 1 on 08/31/2020 by William Serra MD at [facility] Collagen Right: Groin [employer] 06/15/2022 800-612C -10U / [id number] / [id number] [employer] [id number] System 6-12fr Mvp Venous Closure Vascade - [id number] - [id number] Implanted:Qty: 1 on 08/31/2020 by William Serra MD at [facility] Collagen Right: Groin [employer] 06/28/2022 800-612C -10U / [id number] 111B / [id number] 111B [employer] [id number] System 6-12fr Mvp Venous Closure Vascade - [id number] - [id number] Implanted:Qty: 1 on 08/31/2020 by William Serra MD at [facility] Collagen Right: Groin [employer] 06/28/2022 800-612C -10U / [id number] 111B / [id number] Med[employer] Inc [id number] Lead Attain Stability Quad Mri Surescan Lv 88mm - [id number] - [id number] Implanted:Qty: 1 on 03/13/2021 by William Serra MD at [facility] Lead [employer] [id number] 12/22/2022 479 888 / [id number] / Medtronic Cardiac Rhythm Mgmt 5076-52 Capsurefix Novus 6.2fr 2mm 52cm Bipolar Screw In Implantable Latex Free - [id number] - [id number] Implanted:Qty: 1 on 03/13/2021 by William Serra MD at [facility] Lead [employer] Inc [id number] 01/06/2023 507 6-52 / [id number] / Medtronic Cardiac Rhythm Mgmt [id number] Solara Mri Surescan Bluetooth 46.5x59mm Connector Hole Radiopaque - [id number] - [id number] Implanted:Qty: 1 on 03/13/2021 by William Serra MD at [facility] Pacemaker [employer] Inc [id number] 07/16/2022 W4T R03 / [id number] / Procedures Procedure Name Priority Date/Time [...] from Last 3 Months Insurance AETNA MEDICARE [facility] MEDICARE ADVANTAGE FORMERLY [facility] MEDICARE FORMERLY [facility] [place] [address] Advance Directives For more information, please contact: [phone] * Full Code (Latest Code Status on File) Date Activated Date Inactivated Comments 03/13/2021 9:08 PM 03/14/2021 3:24 PM * Full Code Date Activated Date Inactivated Comments 08/31/2020 5:59 PM 09/01/2020 2:40 PM Care Teams Legal Secretary Receptionist Relationship Specialty Start Date End Date Demi Gonzalez MD PCP - General Family Medicine 04/25/21
--- OUTSIDE RECORDS SUMMARY | 2025-01-29 05:32 | XMS_ITS | Encounter Summary ---
Author Organization [facility] Address [address] [place] [address] Care Team Providers Care Overhead Crane Technician Name Role Phone Demi Gonzalez MD Primary Care Provider [phone] Encounter Details Date Type Department Care Team (Late st Contact Info) Description 01/12/2022 Lab Requisition [facility] DermPath Lab [address] [place] [address] Christian Damico MD [address] [facility] [place] [address] Social History Tobacco Use Types Packs/Day Years [...] AM CDT) Case Report Dermatopathology Report Case: [id number] Authorizing Provider: Christian Damico MD Collected: 01/11/2022 12:00 AM Ordering Location: [facility] DermPath Lab Received: 01/12/2022 04:48 PM Pathologist: Shani Salazar MD Specimen: Skin, left 5th toe 2 4:11 PM CDT DERMATOPATHOLOGY LABORATORY Final Diagnosis Specimen A. SKIN, left 5th toe: HEMORRHAGE WITHIN THE CORNIFIED LAYER (CHANGES TYPICAL OF BLOOD BLISTER) (R23.3) (see microscopic description and comment) 2 4:11 PM CDT DERMATOPATHOLOGY LABORATORY at 1611 CDT Clinical History Nevus vs MM vs blood. Path # [id number]. 2 4:11 PM CDT DERMATOPATHOLOGY LABORATORY Gross Description Specimen A: Received is one formalin filled container labeled with the patient's name and designated left 5th toe. The specimen consists of a shave biopsy measuring 3m8u0ra. Jar 0. 4:11 PM CDT DERMATOPATHOLOGY LABORATORY [...] characteristic determined by the Dermatopathology Laboratory at [facility], directed by Dr. Jacky Morales. These tests need not be, and therefore are not, approved by the [place] Food and Drug Administration. The tests are used for clinical purposes. Billing Codes Specimen Charges Stain Charges 20308 1 2 4:11 PM CDT DERMATOPATHOLOGY LABORATORY Embedded Images 2 4:11 PM CDT DERMATOPATHOLOGY LABORATORY Pathology/Cytolog y TISSUE SPECIMEN FROM SKIN / Unknown 01/11/2022 01/12/2022 4:48 PM CDT us Christian Damico MD LAB - PATHOLOGY/CYTOLOGY ORDER MOE Final Result DERMATOPATHOLOGY LABORATORY [facility] - Department of Dermatology [facility] Medicine [address] [place] [address], [address] Floor [address] [phone] documented in this encounter Visit Diagnoses Not on filedocumented in this encounter Care Teams Overhead Crane Technician Relationship Specialty Start Date End Date Demi Gonzalez MD [address] [place] [address] PCP - General 09/25/22 documented as of this encounter
--- OUTSIDE RECORDS SUMMARY | 2025-01-29 05:32 | XMS_ITS | Encounter Summary ---
Author Organization [facility] Address [address] [facility] [address] [place] [address] Care Team Providers Care Job Printer Apprentice Name Role Phone Sandoval Reese MD Primary Care Provider + [phone] Sandoval Reese MD Primary Care Provider + [phone] Uche Bond Primary Care Provider [phone] Demi Gonzalez MD Primary Care Provider [phone] Encounter Details Date Type Department Care Team (Late st Contact Info) Description 10/22/2016 Orders Only [facility]hythmia Center ProviderJaydon MD [address] [place] [address] Social History Tobacco Use Types Packs/Day Years Used Date Smoking Tobacco: Never Alcohol Use Standard Drinks/Week Comments Yes 0 (1 standard drink = 0.6 oz pur e alcohol) Comments Unknown Sex and Gender Information Value Date Recorded Sex Assigned at Not on file 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 Gender Identity Female 04/12/2021 6:26 AM CDT [...] on filedocumented in this encounter Care Teams Job Printer Apprentice Relationship Specialty Start Date End Date Sandoval Reese MD [address] [place] [address] PCP - General 11/16/16 07/23/18 Sandoval Reese MD [address] [place] [address] PCP - General 07/25/16 11/15/16 Uche Bond PA [address] [place] [address] PCP - General Physician Outpatient Coding Specialist 10/28/20 04/24/21 Demi Gonzalez MD [address] [place] [address] PCP - General Family Medicine 04/25/21 documented as of this encounter
--- OUTSIDE RECORDS SUMMARY | 2025-01-29 05:32 | XMS_ITS | Clinical Summary ---
Author Organization [facility] Address [address] [facility] [place] [address] Care Team Providers Care Systems Architect Name Role Phone Demi Gonzalez MD Primary Care Provider [phone] Source Comments [facility],non-owned Affiliates and Associated Physician Practices is amultiple site organization consisting of ambulatory clinics and hospital sitesin [place] and [place]. This disclosure is being madepursuant to the Care Everywhere program and may not contain all information available regarding this patient. Last updated 18.[facility] Allergies No known active allergies Medications * [...] Recorded Patient Health Questionnaire-2 Score 0 09/08/2024 [facility] [place] [facility] Occupat ional Health - Occupational Stress [...] place to sleep or slept in a group home (including now)? No 09/02/2022 Comments No Sex [...] this topic Medical Devices Implanted Type Area Correspondence Transcriber Device Identifier Shelf Expiration Date Model / Serial / Lot Nail Im 10mm 38cm Trgn Mt-Nail Fem Rtrgd Implanted:Qty: 1 on 09/03/2022 by Richard Tam MD at [facility] Left: Femur [employer] 11/22/2030 [id number] / / [id number] Screw 5mm 70mm Lopro Intnl Hex Fem Trgn Implanted:Qty: 1 on 09/03/2022 by Richard Tam MD at [facility] Left: Femur [employer] 09/29/2025 [id number] / / [id number] Screw 5mm 45mm Lopro Intnl Hex Fem Trgn Implanted:Qty: 1 on 09/03/2022 by Richard Tam MD at [facility] Left: Femur [employer] 03/27/2029 [id number] / / [id number] Screw 5mm 57mm Lopro Intnl Hex Fem Trgn Implanted:Qty: 1 on 09/03/2022 by Richard Tam MD at [facility] Left: Femur [employer] 07/24/2031 [id number] / / [id number] Screw 5mm 35mm Lopro Intnl Hex Fem Trgn Implanted:Qty: 1 on 09/03/2022 by Richard Tam MD at [facility] Left: Femur [employer] 02/12/2032 [id number] / / [id number] Explanted Type Area Correspondence Transcriber Device Identifier Shelf Expiration Date Model / Serial / Lot Screw 5mm 75mm Lopro Intnl Hex Fem Trgn Explanted:Qty : 1 on 09/03/2022 by Richard Tam MD at [facility] Left: Femur [employer] [id number] 09/30/2028 [id number] / / [id number] [place] [address] [place] [address] AETNA MEDICARE ADV SELF PAY NO INSURANCE Member Subscriber Plan / Payer (Ef fective for All Dates) Name:Lauren Lyons Member ID:Not on file Relation to Subscriber:Not on file Name:LAUREN LYONS Subscriber ID:Not on file (Home) Address: [address] [place] [address] [place] [address] Payer ID:Not on file Group ID:Not on file Type:Self Pay Address: [place], [place] [address] Advance Directives * Full Code (Latest Code Status on File) Date Activated Date Inactivated Comments 12/10/2022 7:47 AM 12/10/2022 2:19 PM * Full Code Date Activated Date Inactivated Comments 09/02/2022 2:16 AM 09/19/2022 7:47 PM Care Teams Systems Architect Relationship Specialty Start Date End Date Demi Gonzalez MD [address] [place] [address] PCP - General 09/25/22
--- OUTSIDE RECORDS SUMMARY | 2025-01-29 05:32 | XMS_ITS | Encounter Summary ---
Author Organization [facility] Address [address] [facility] [address] [place] [address] Care Team Providers Care Knot Tier Name Role Phone Sandoval Reese MD Primary Care Provider [phone] Sandoval Reese MD Primary Care Provider + [phone] Uche Bond Primary Care Provider [phone] Demi Gonzalez MD Primary Care Provider [phone] Encounter Details Date Type Department Care Team (Late st Contact Info) Description 10/29/2016 Orders Only Arrhythmia Center ProviderJaydon MD [address] [place] [address] Social History Tobacco Use Types Packs/Day Years Used Date Smoking Tobacco: Never Alcohol Use Standard Drinks/Week Comments Yes 0 (1 standard drink = 0.6 oz pur e alcohol) Comments Unknown Sex and Gender Information Value Date Recorded Sex Assigned at Not on file 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 Gender Identity Female 04/12/2021 6:26 AM [...] on filedocumented in this encounter Care Teams Knot Tier Relationship Specialty Start Date End Date Sandoval Reese MD [address] [place] [address] PCP - General 11/16/16 07/23/18 Sandoval Reese MD [address] [place] [address] PCP - General 07/25/16 11/15/16 Uche Bond PA [address] [place] [address] PCP - General Physician Housekeeper Caregiver 10/28/20 04/24/21 Demi Gonzalez MD [address] [place] [address] PCP - General Family Medicine 04/25/21 documented as of this encounter
--- OUTSIDE RECORDS SUMMARY | 2025-01-29 05:32 | XMS_ITS | Clinical Summary ---
Author Organization [facility] Address [address] [place] [address] Care Team Providers Care Director Of Primary Name Role Phone Demi Gonzalez MD Primary Care Provider [phone] Allergies No known active allergies Medications ezetimibe [...] 12/12/2018 Assessment & Plan (09/09/2019 2:07 PM BUSINESS REPRESENTATIVE): Improving with exercise No specific therapy needed Encouraged an exercise program to improve stamina and her functional capacity. Assessment & Plan (07/20/2019 2:51 PM BUSINESS REPRESENTATIVE): The differential diagnosis for dyspnea includes: - [...] an office visit and twelve- lead ECG. terminal make up operator current use of antiarrhythmic drug Assessment [...] 02/01/2017 Assessment & Plan (06/22/2020 2:10 PM BUSINESS REPRESENTATIVE): The patient has a CBJ1DV1-ZDMw score of 3 (annualized risk of stroke 3%). I have therefore recommended that she remain anticoagulated for thromboprophylaxis. We will see the patient back 1 month post cardioversion. Assessment & Plan (12/15/2019 1:11 PM CDT): The patient has a ABW1WJ1-EXGo score of 3 (annualized risk of stroke 3%). I have therefore recommended that she remain anticoagulated for thromboprophylaxis. The patient will follow-up with me in 6 months for an office visit and twelve- lead ECG. Assessment & Plan (12/12/2018 3:52 PM CDT): The patient has a UDM1PE4-MALh score of 3 (annualized risk of stroke 3%). I have therefore recommended that she remain anticoagulated for thromboprophylaxis. Assessment & Plan (09/10/2018 2:06 PM BUSINESS REPRESENTATIVE): The patient has a SCG8IQ8-MLLa score of 3 (annualized risk of stroke 3%). I have therefore recommended that she remain anticoagulated for thromboprophylaxis. The patient will follow-up with me in 6 months for an office visit and twelve- lead ECG. Assessment & Plan (08/05/2018 2:42 PM BUSINESS REPRESENTATIVE): The patient has a AFV8HI3-VUCc score of 3 (annualized risk of stroke 3%). I have therefore recommended that she remain anticoagulated for thromboprophylaxis. Assessment & Plan (03/08/2018 11:06 AM CDT): The patient has a XFK3IL3-NCAh score of 3 (annualized risk of stroke 3.2 %). I have therefore recommended that she remain anticoagulated for thromboprophylaxis. The patient will follow-up with me in 6 months for an office visit and twelve- lead ECG. Assessment & Plan (09/09/2017 12:39 PM BUSINESS REPRESENTATIVE): The patient has a ECN3IE2-SBQf score of 3 (annualized risk of stroke 3.2 %). I have therefore recommended that she remain anticoagulated for thromboprophylaxis. The patient will follow-up with me in 6 months for an office visit and twelve- lead ECG. Assessment & Plan (06/02/2017 2:56 PM CDT): The patient has a CIT8QP4-YLGf score of 3 (annualized risk of stroke 3.2 %). I have therefore recommended that she remain anticoagulated for thromboprophylaxis. The patient will follow-up with me in 6 months for an office visit and twelve- lead ECG. Assessment & Plan (04/04/2017 11:27 AM CDT): The patient has a DUW9CX3-ATVe score of 3 (annualized risk of stroke 3.2 %). I have therefore recommended that she remain anticoagulated. The patient will follow-up with me in 3 months for an office visit and twelve- lead ECG. Assessment & Plan (02/24/2017 2:32 PM CDT): The patient has a QCG6JS3-PGMs score of 2 (annualized risk of stroke [...] 017 Assessment & Plan (06/22/2020 2:08 PM BUSINESS REPRESENTATIVE): 12-lead ECG today does not demonstrate any [...] toxicity. Assessment & Plan (09/10/2018 2:04 PM BUSINESS REPRESENTATIVE): 12-lead ECG today does not demonstrate any [...] checks when necessary. The patient has a DFJ3UJ8-YNEb score of 3 (annualized risk of stroke [...] checks when necessary. The patient has a KJE8GO1-HMHf score of 4 (annualized risk of stroke 4%). I have therefore recommended continued anticoagulation for thromboprophylaxis. Assessment & Plan (04/15/2022 2:08 PM CDT): Persistent atrial fibrillation. Now status post ROTARY DRIER-pacemaker/AV junction ablation, and doing well. This has [...] ECG. Assessment & Plan (06/22/2020 2:08 PM BUSINESS REPRESENTATIVE): Persistent atrial fibrillation, recurrent despite ablation and [...] medication. Assessment & Plan (09/10/2018 2:04 PM BUSINESS REPRESENTATIVE): The patient is 18 months status post repeat ablation for persistent atrial fibrillation/flutter. She is 1 month status post cardioversion. The patient is maintaining sinus rhythm with sotalol. We will continue to monitor and follow closely, and manage new / recurrent arrhythmia expectantly. Assessment & Plan (08/05/2018 2:39 PM BUSINESS REPRESENTATIVE): The patient is over a year status [...] expectantly. Assessment & Plan (09/09/2017 12:34 PM BUSINESS REPRESENTATIVE): The patient is 6 months status post [...] CDT Ancillary Procedure Arrhythmia Center [address] [facility] [address] [place] [id number] Pacemaker (Primary Dx); CHB (complete heart [...] on file Legal Sex Female 3:54 AM BUSINESS REPRESENTATIVE Gender Identity Female 04/12/2021 6:26 AM CDT [...] history exists Medical Devices Implanted Type Area Highway Painter Device Identifier Shelf Expiration Date Model / Serial / Lot [employer] [id number] System 6-12fr Mvp Venous Closure Vascade - [id number] - [id number] Implanted:Qty: 1 on 08/31/2020 by William Serra MD at [facility] Collagen Left: Groin [employer] 06/15/2022 800-612C -10U / [id number] / [id number] [employer] [id number] System 6-12fr Mvp Venous Closure Vascade - [id number] - [id number] Implanted:Qty: 1 on 08/31/2020 by William Serra MD at [facility] Collagen Right: Groin [employer] 06/15/2022 800-612C -10U / [id number] / [id number] [employer] [id number] System 6-12fr Mvp Venous Closure Vascade - [id number] - [id number] Implanted:Qty: 1 on 08/31/2020 by William Serra MD at [facility] Collagen Right: Groin [employer] 06/28/2022 800-612C -10U / [id number] 111B / [id number] [employer] [id number] System 6-12fr Mvp Venous Closure Vascade - [id number] - [id number] Implanted:Qty: 1 on 08/31/2020 by William Serra MD at [facility] Collagen Right: Groin [employer] 06/28/2022 800-612C -10U / [id number] 111B / [id number] Med[employer] Inc [id number] Lead Attain Stability Quad Mri Surescan Lv 88mm - [id number] - [id number] Implanted:Qty: 1 on 03/13/2021 by William Serra MD at [facility] Lead [employer] [id number] 12/22/2022 479 888 / [id number] / Medtronic Cardiac Rhythm Mgmt 5076-52 Capsurefix Novus 6.2fr 2mm 52cm Bipolar Screw In Implantable Latex Free - [id number] - [id number] Implanted:Qty: 1 on 03/13/2021 by William Serra MD at [facility] Lead [employer] [id number] 01/06/2023 507 6-52 / [id number] / [employer]onic Cardiac Rhythm Mgmt [id number] Solara Mri Surescan Bluetooth 46.5x59mm Connector Hole Radiopaque - [id number] - [id number] Implanted:Qty: 1 on 03/13/2021 by William Serra MD at [facility] Pacemaker [employer] Inc [id number] 07/16/2022 W4T R03 / [id number] / Procedures Procedure Name Priority Date/Time [...] Final Result from Last 3 Months Insurance [facility] MEDICARE UHC MEDICARE ADVANTAGE [facility] MEDICARE [facility] MED[facility] Address: [address] [place] [address] [facility] MEDICARE [facility] MEDIC[facility] Address: [id number] [place] [id number] Advance Directives For more information, please contact: [phone] * Full Code (Latest Code Status on File) Date Activated Date Inactivated Comments 03/13/2021 9:08 PM 03/14/2021 3:24 PM * Full Code Date Activated Date Inactivated Comments 08/31/2020 5:59 PM 09/01/2020 2:40 PM Care Teams Director Of Primary Relationship Specialty Start Date End Date Demi Gonzalez MD PCP - General Family Medicine 04/25/21
--- OUTSIDE RECORDS SUMMARY | 2025-01-29 05:32 | XMS_ITS | Encounter Summary ---
Author Organization [facility] Address [address] [facility] [address] [place] [address] Care Team Providers Care Naval Aircrewman Mechanical Name Role Phone Sandoval Reese MD Primary Care Provider +[phone] Sandoval Reese MD Primary Care Provider + [phone] Uche Bond Primary Care Provider [phone] Demi Gonzalez MD Primary Care Provider [phone] Encounter Details Date Type Department Care Team (Late st Contact Info) Description 08/13/2016 Orders Only Arrhythmia Center ProviderJaydon MD [address] [place] [id number] Social History Tobacco Use Types Packs/Day Years Used Date Smoking Tobacco: Never Alcohol Use Standard Drinks/Week Comments Yes 0 (1 standard drink = 0.6 oz pur e alcohol) Comments Unknown Sex and Gender Information Value Date Recorded Sex Assigned at Not on file 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 Female 3:54 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 Gender Identity Female 04/12/2021 6:26 AM CDT [...] on filedocumented in this encounter Care Teams Naval Aircrewman Mechanical Relationship Specialty Start Date End Date Sandoval Reese MD [address] [place] [address] PCP - General 11/16/16 07/23/18 Sandoval Reese MD [address] [place] [address] PCP - General 07/25/16 11/15/16 Uche Bond PA [address] [facility] [address] [place] [address] PCP - General Physician Underwear Hemmer 10/28/20 04/24/21 Demi Gonzalez MD [address] [place] [address] PCP - General Family Medicine 04/25/21 documented as of this encounter
--- OUTSIDE RECORDS SUMMARY | 2025-01-29 05:32 | XMS_ITS | Encounter Summary ---
Author Organization [facility] Address [address] [facility] [address] [place] [address] Care Team Providers Care Senior Loan Processor Name Role Phone Sandoval Reese MD Primary Care Provider + [phone] Sandoval Reese MD Primary Care Provider + [phone] Uche Bond Primary Care Provider [phone] Demi Gonzalez MD Primary Care Provider [phone] Encounter Details Date Type Department Care Team (Late st Contact Info) Description 10/18/2016 Orders Only Arrhythmia Center ProviderJaydon MD [address] [place] [address] Social History Tobacco Use Types Packs/Day Years Used Date Smoking Tobacco: Never Alcohol Use Standard Drinks/Week Comments Yes 0 (1 standard drink = 0.6 oz pur e alcohol) Comments Unknown Sex and Gender Information Value Date Recorded Sex Assigned at Not on file Legal Sex Female 3:54 AM EQUIPMENT RECORDS SUPERVISOR Gender Identity Female 04/12/2021 6:26 AM CDT [...] on filedocumented in this encounter Care Teams Senior Loan Processor Relationship Specialty Start Date End Date Sandoval Reese MD [address] [place] [address] PCP - General 11/16/16 07/23/18 Sandoval Reese MD [address] [place] [address] PCP - General 07/25/16 11/15/16 Uche Bond PA [address] [place] [address] PCP - General Physician Workforce Analyst 10/28/20 04/24/21 Demi Gonzalez MD [address] [place] [address] PCP - General Family Medicine 04/25/21 documented as of this encounter
[2025-01-29 06:44] VITALS: BP 173/74; PULSE 84; RESP 20; TEMP 37; O2SAT 98; BMI 29.9
[2025-01-29] MEDS: LACTATED RINGERS 1,000 ML 150 ML IV CONT (06:49)
--- NOTE | 2025-01-29 07:08 | WPDANESEPPF ---
Anes - Initial Pre Proc Eval Procedure: Operation Date: 01/29/25 07:45 Proposed Procedures p Esophagogastroduodenoscopy with Givens Capsule Deployment - Liam Drummond MD Date/Time: 01/29/25 07:08 Surgeon: Liam Drummond MD Pre Op Diagnosis: Iron deficiency anemia, unspecified Patient Data Age: 79 Gender: F Height: 1.63 m Weight: 79 kg Last Vital Signs Temp 37.0 C 01/29/25 06:44 Pulse 84 01/29/25 06:44 Resp 20 01/29/25 06:44 BP 173/74 H 01/29/25 06:44 Pulse Ox 98 01/29/25 06:44 O2 Del Method Room Air 01/29/25 06:44 Allergies Allergy/AdvReac Type Severity Reaction Status Date / Time No Known Allergies Allergy Verified 01/29/25 06:41 Home Medications ?Medication ?Instructions ?Recorded ?Confirmed ?Type cyanocobalamin (vitamin B-12) 1,000 mcg PO DAILY 07/14/19 01/29/25 History 1,000 mcg tablet rivaroxaban 20 mg tablet (Xarelto) 20 mg PO QPM 07/14/19 01/29/25 History Calcium 600 + D(3) 1 tab-cap PO DAILY 07/31/22 01/29/25 History lisinopril 40 mg tablet 40 mg PO DAILY #90 tabs 02/12/24 01/29/25 Rx ezetimibe 10 mg tablet (Zetia) 10 mg PO DAILY #90 tabs 05/11/24 01/29/25 Rx clotrimazole-betamethasone 1 1 applic topical BID PRN IRRITATION 01/13/25 01/29/25 History %-0.05 % topical cream sodium chloride 0.65 % nasal spray 1 spray intranasal Q6HR PRN Dry 01/14/25 01/29/25 Rx aerosol (Saline Mist) Nasal Passages #44 mL pantoprazole 40 mg tablet,delayed 40 mg PO QAM #30 tabs 01/20/25 01/29/25 Rx release Patient hx anesthesia problems: none Family hx anesthesia problems: none Results Review: All pre-operative results and documents have been reviewed as part of the pre-operative evaluation. [facility] Past Medical History Medical History Atrial fibrillation Abnormal CT scan Femur fracture, left History of pacemaker Exposure to COVID-19 virus Vitamin B12 deficiency Iron deficiency Hyperlipidemia Hypertension History of cardioversion Surgical History Surgical History History of appendectomy History of total knee replacement (TKR) H/O prior ablation treatment Family History Family History Mother Hypertension Cerebrovascular accident Family history of pancreatic cancer Family history of primary malignant neoplasm of liver Father Acute myocardial infarction Social History Social History Smoking status: Former smoker Second hand tobacco smoke exposure: No Alcohol intake: current Drinks per week: 3 Alcohol use details: WINE Substance use: never Substance use type: does not use Do You Feel Safe in your Home?: Yes Lack of Transportation: No Lack of Food: Never True Current Housing: I Have Housing Concerned About Future Housing: No Difficulty Paying Gas/Electric Bills: No Difficulty Paying for Meds: No Currently Unemployed: No Education: Master's Degree or Higher Difficulty w/ Childcare or Family Care: No Living arrangements: with family Occupation/Education: retired Gender identity (if verbalized by the patient): Female Spiritual care concerns: No Agree to blood products: Yes Anes - Eval Final PreProcedure Day of Procedure 01/29/25 07:08 Patient weight: overweight Heart: regular rate and rhythm Lungs: clear to auscultation Airway: Mallampati scale class II Neurological: alert and oriented Last oral intake: >/= 8 hours ASA classification: III Emergent: no Anesthetic plan: proceed Anesthesia type and monitoring: general GIVS and standard monitoring Results Review: All pre-operative results and documents have been reviewed as part of the pre-operative evaluation. Informed Consent: The patient's anesthetic plan and its attendant risks and benefits were discussed with the patient/family/POA. Questions were solicited and answers provided to the satisfaction of the patient/family/POA.
--- NOTE | 2025-01-29 07:31 | WPDHPUPDATE1 ---
History and Physical Update Update Date/Time: 01/29/25 07:31 History and Physical has been reviewed, including an updated exam of the patient. There are NO changes in the patient's condition. Risks, benefits, and alternatives have been discussed and questions answered. Patient agrees to proceed with procedure. she also has pacemaker and she is agreeable to proceed with capsule endoscopy. She is using xarelto, recent egd and colonoscopy no major findings.
[2025-01-29 07:41] VITALS: BP 107/35; PULSE 62; RESP 21; O2SAT 100
[2025-01-29 07:51] VITALS: BP 131/53; PULSE 60; RESP 20; O2SAT 99
[2025-01-29 08:01] VITALS: BP 138/49; PULSE 60; RESP 17; O2SAT 100
--- NOTE | 2025-01-29 15:09 | SUR.PHASEII ---
Patient returned to the GI Lab at 1500 for recorder box removal. Patient voiced no complaints. States they have understanding of instructions. Patient left ambulatory. PT denies abdomen pain or discomfort. Dr. Chow notified of video being downloaded
== END 2025-01-29 08:10 | disposition home or self-care (01) ==
PROVIDERS: PCP Family Medicine; Referring Provider Internal Medicine Gastroenterology; Visit Provider Internal Medicine Gastroenterology
PROC: 0DJ08ZZ Inspection of Upper Intestinal Tract, Via Natural or Artificial Opening Endoscopic (ICD-10-PCS; principal; 2025-01-29 07:45)
DX: D50.9 Iron deficiency anemia, unspecified (principal); Z01.818 Encounter for other preprocedural examination
CPT/HCPCS: 91110; J2003; J2704; J7120

== ENCOUNTER 2025-05-20 13:52 | Outpatient (CLI) | payer MEDICARE, SELFPAY ==
--- OUTSIDE RECORDS SUMMARY | 2025-05-20 13:30 | XMS_ITS | Encounter Summary ---
Author Organization [facility] [employer] [facility] Address [address] [place] [address] Care Team Providers Care Claim Inspector Name Role Phone Demi Gonzalez MD Primary Care Provider [phone] Reason for Visit * Reason Comments Establish Care Encounter Details Date Type Department Care Team (Late st Contact Info) Description 05/20/2025 1:30 PM CDT Office Visit [facility] Oncology and Hematology - David [address] [facility] [address] [place] [address] Nathanael Liu MD [address] [facility] [address] [place] [address] Chronic anemia (Primary Dx) Social History Tobacco Use Types Packs/Day Years Used Date Smoking Tobacco: Never Smokeless Tobacco: Never Tobacco Cessation:Counseling Given: Not Answered Alcohol Use Standard Drinks/Week Comments Yes 0 (1 standard drink = 0.6 oz pur e alcohol) Occasionally Comments Unknown Sex and Gender Information Value Date Recorded Sex Assigned at Not on file Legal Sex Female 4:08 PM CDT Gender Identity Not on file Sexual Orientation Not on file documented as of this encounter Last Filed Vital Signs Vital Sign Reading Time Taken Comments Blood Pressure 165/80 05/20/2025 1:19 PM CDT Pulse 86 05/20/2025 1:15 PM CDT Temperature 36.3 C (97.3 F) 05/20/2025 1:15 PM CDT Respiratory Rate 16 05/20/2025 1:15 PM CDT Oxygen Saturation 96% 05/20/2025 1:15 PM CDT Inhaled Oxygen Concentration - - Weight 80.6 kg (177 lb 9.6 oz) 05/20/2025 1:15 P M CDT Height 162.6 cm (5' 4) 05/20/2025 1:15 PM CDT Body Mass Index 30.48 05/20/2025 1:15 PM CDT documented in this encounter Progress Notes * Nathanael Liu MD - 05/20/2025 1:29 PM CDT 60Hematology-oncology consult Note Requesting Physician Demi Gonzalez MD Primary Care Physician Demi Gonzalez MD Problem list There is no problem list on file for this patient. Previous TREATMENT ? Measurable Disease ? Reason for Visit Viry Lyons is a 79 y.o. female who was referred for consultation for iron deficiency anemia. History of present illness This is a pleasant 79-year-old slightly obese female with history of atrial fibrillation status post pacemaker placement, hypertension, hyperlipidemia and recently diagnosed iron deficiencyanemia admitted to the hospital on January 19, 2025 with iron deficiency anemia. Patient was complaining of tiredness and fatigue. She denies any melena or hematochezia. Denies any chest pain and shortness of breath. Labs showed hemoglobin of 7.6 with iron of 20 iron saturation 5% and ferritin of 8.47.She received iron infusion. Patient had colonoscopy done on January 19, 2025 came back normal. EGD showed hiatal hernia. Capsule enteroscopy was also performed on February 10 came back unremarkable. She was started on oral iron 65 mg once a day that she has been taking. She is feeling better. She denies any previous stomach surgeries. Denies any other new complaints. Past Medical History Past Medical History: Diagnosis Date Atrial fibrillation (CMS/HCC) Hyperlipidemia Hypertension Surgical History Past Surgical History: Procedure Laterality Date HX APPENDECTOMY HX KNEE REPLACEMENT, TOTAL Medications Current Outpatient Medications Medication Sig Dispense Refill amLODIPine (NORVASC) 2.5 mg tablet Take 1 Tablet by mouth daily. ferrous sulfate 325 mg (65 mg iron) tablet Take 1 Tablet by mouth daily. ezetimibe (ZETIA) 10 mg tablet Take 1 Tablet by mouth daily. lisinopriL (PRINIVIL) 40 mg tablet Take 1 Tablet by mouth daily. Xarelto 20 mg Tablet Take 1 Tablet by mouth daily. CALCIUM CITRATE-VITAMIN D3 ORAL Take by mouth. cyanocobalamin 1,000 mcg Tablet Take 1,000 mcg by mouth daily. Cholecalciferol, Vitamin D3, (VITAMIN D3) 10 mcg (400 unit) capsule Take 400 Units by mouth. multivitamin (DAILY-JUAREZ) tablet Take 1 Tablet by mouth daily. No current facility-administered medications for this visit. Allergies No Known Allergies Immunizations: There is no immunization history on file for this patient. Family History Family History Problem Relation Name Age of Onset Heart Disease Father Pancreatic Cancer Mother No Known Problems Brother No Known Problems Child Diabetes Child mass on brain Social History Social History Tobacco Use Smoking status: Never Smokeless tobacco: Never Substance Use Topics Alcohol use: Yes Comment: Occasionally Review of Systems Constitutional: Patient did not mention fever; no night sweats; no anorexia; no weight loss; no fatique NEENT: Patient did not mention headache; no change in vision; no change in hearing; no sore throat;no dysphagia Respiratory: Patient did not mention shortness of breath; no pleuritic chest pain; no cough; no hemoptysis Cardiac: Patient did not mention cardiac-like chest pain; no palpitations; no orthopnea; no PND; noDOE Breasts: Patient did not mention tenderness; no masses GI: Patient did not mention abdominal pain; no nausea; no vomiting; no diarrhea; no hematochezia; no melena : Patient did not mention dysuria; no frequency; no hesitancy; no hematuria PIPELINER: Musculosketetal: Patient did not mention bone pain; no arthralgia; no joint swelling; no myalgia; Skin: Patient did not mention pruritis; no rash; no petechiae; no ecchymoses Endocrine: Patient did not mention polydipsia; no polyuria; no unusual weight gain Neuro: Patient did not mention headache; no change in vision; no sensory changes; no muscle weakness; no confusion; no seizures Psych: Patient did not mention anxiety; no depression; Physical Exam Vitals: As per nursing note Constitutional: Well developed, well nourished, no acute distress, non-toxic appearance Teeth and gum. No signs of infection or swelling. Eyes: PERRL, conjunctiva normal HEENT: Atraumatic, external ears normal, nose normal, oropharynx moist, no pharyngeal exudates. no sinus tenderness Neck- normal range of motion, no tenderness, supple Respiratory: No respiratory distress, normal breath sounds, no rales, no wheezing Cardiovascular: Normal rate, normal rhythm, no murmurs, no gallops, no rubs GI: Soft, nondistended, normal bowel sounds, nontender, no splenomegaly, no hepatomegaly, no mass, no rebound, no guarding : No costovertebral angle tenderness Musculoskeletal: No edema, no tenderness, no deformities. Back- no tenderness Integument: Well hydrated, no rash, Digits and nails inspection normal Lymphatic: No lymphadenopathy noted Neurologic: Alert & oriented x 3, CN 2-12 normal, normal motor function, normal sensory function, no focal deficits noted Psychiatric: Speech and behavior appropriate ? labs No results found for this or any previous visit (from the past 24 hours). Labs from March 09, 2025 showed iron 41 saturation 9% B12 355 hemoglobin 11.9. Pathology ? Imaging & Other Studies Performance Status? Assessment / Plan: ? Iron deficiency anemia. 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 She was not having any GI bleed. Her labs showed significant iron deficiency with anemia. She received iron infusion and then subsequently discharged home on iron 65 mg once a day. Patient had colonoscopy done on January 19, 2025 came back normal. EGD showed hiatal hernia. Capsule enteroscopy was alsoperformed on February 10 came back unremarkable. She is not a vegetarian but rarely eat red meat. Her iron deficiency is likely secondary to not eating much red meat and also malabsorption likely secondary to hiatal hernia. I will repeat labs including CBC with differential, CMP, iron panel, soluble transferrin receptor, vitamin B12 level and methylmalonic acid level. Currently she is taking iron 65 mg once a day and tolerating it well. Based on the labs we will decide about further iron infusion. I have answered all the questions to patient's satisfaction. Phone visit in 1 week to discuss further findings. Atrial fibrillation status post pacemaker placement. Patient is on Xarelto. Hyperlipidemia. Patient is on Zetia. Hypertension. Patient is on amlodipine and lisinopril. Thank you very much for allowing me to participate in Viry Lyons's evaluation and management.Please feel free to contact if I can be of any further assistance in your patient???s care requiring hematology or oncology evaluation. Sincerely, ? ? Nathanael Liu M.D. cell TOBACCO COUNSELING She is not a tobacco/nicotine user. Nathanael Liu MD ,05/20/2025 1:48 PM ? Total time spent 60 minutes, two third of the total time spent counseling patient [id number]. CC:?Demi Gonzalez MD documented in this encounter Plan of Treatment Upcoming Encounters Date Type Department Care Team (Late st Contact Info) Description 06/02/2025 4:35 PM CDT Telephone Check Up [facility] Oncology and Hematology - David [address] [facility] [address] [place] [address] Nathanael Liu MD [address] [facility] [address] [place] [address] Scheduled Orders Name Type Priority Associated Diagnoses Orde r Schedule CBC WITH DIFFERENTIAL Lab Stat Chronic anemia Expected: 05/20/2025, Expires: 05/20/2026 COMPREHENSIVE METABOLIC PANEL Lab Stat Chronic anemia Expected: 05/20/2025, Expires: 05/20/2026 FERRITIN Lab Routine Chronic anemia Expected: 05/20/2025, Expires: 05/20/2026 IRON, TIBC, AND PERCENT SATURATION Lab Routine Chronic anemia Expected: 05/20/2025, Expires: 05/20/2026 METHYLMALONIC ACID Lab Routine Chronic anemia Expected: 05/20/2025, Expires: 05/20/2026 TRANSFERRIN RECEPTOR TFR SOLUBLE Lab Routine Chronic anemia Expected: 05/20/2025, Expires: 05/20/2026 VITAMIN B12 AND FOLATE Lab Routine Chronic anemia Expected: 05/20/2025, Expires: 05/20/2026 documented as of this encounter Visit Diagnoses Diagnosis Chronic anemia- Primary Anemia, unspecified documented in this encounter Care Teams Claim Inspector Relationship Specialty Start Date End Date Demi Gonzalez MD [address] [place] [id number] PCP - General Family Practice 05/20/25 documented as of this encounter
--- OUTSIDE RECORDS SUMMARY | 2025-05-20 13:55 | XMS_ITS | Encounter Summary ---
Author Organization [facility] Address [address] [facility] [address] [place] [address] Care Team Providers Care Termite Treater Name Role Phone Sandoval Reese MD Primary Care Provider [phone]- [phone] Sandoval Reese MD Primary Care Provider + [phone] Uche Bond Primary Care Provider [phone] Demi Gonzalez MD Primary Care Provider [phone] Encounter Details Date Type Department Care Team (Late st Contact Info) Description 10/29/2016 Orders Only [facility] Provider, MD Jaydon [address] [place] [address] Social History Tobacco Use Types Packs/Day Years Used Date Smoking Tobacco: Never Alcohol Use Standard Drinks/Week Comments Yes 0 (1 standard drink = 0.6 oz pur e alcohol) Comments Unknown Sex and Gender Information Value Date Recorded Sex Assigned at Not on file 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 Historical Provider MD [facility] DE[facility] BENITEZYUSEF Final Result documented in this encounter Visit Diagnoses Not on filedocumented in this encounter Care Teams Termite Treater Relationship Specialty Start Date End Date Sandoval Reese MD [address] [place] [address] PCP - General 11/16/16 07/23/18 Sandoval Reese MD [address] [place] [address] PCP - General 07/25/16 11/15/16 Uche Bnod PA [address] [place] [address] PCP - General Physician Shot Man 10/28/20 04/24/21 Demi Gonzalez MD [address] [place] [address] PCP - General Family Medicine 04/25/21 documented as of this encounter
--- OUTSIDE RECORDS SUMMARY | 2025-05-20 13:55 | XMS_ITS | Encounter Summary ---
Author Organization [facility] Address [address] [facility] [address] [place] [address] Care Team Providers Care Business Loan Processor Name Role Phone Sandoval Reese MD Primary Care Provider +- [phone] Sandoval Reese MD Primary Care Provider + [phone] Uche Bond Primary Care Provider [phone] Demi Gonzalez MD Primary Care Provider [phone] Encounter Details Date Type Department Care Team (Late st Contact Info) Description 10/18/2016 Orders Only Arrhythmia Center Provider, MD Jaydon [address] [place] [address] Social History Tobacco Use Types Packs/Day Years Used Date Smoking Tobacco: Never Alcohol Use Standard Drinks/Week Comments Yes 0 (1 standard drink = 0.6 oz pur e alcohol) Comments Unknown Sex and Gender Information Value Date Recorded Sex Assigned at Not on file Legal Sex Female 3:54 AM NICKER AND BREAKER Gender Identity Female 04/12/2021 6:26 AM CDT [...] on filedocumented in this encounter Care Teams Business Loan Processor Relationship Specialty Start Date End Date Sandoval Reese MD [address] [place] [address] PCP - General 11/16/16 07/23/18 Sandoval Reese MD [address] [place] [address] PCP - General 07/25/16 11/15/16 Uche Bond PA [address] [place] [address] PCP - General Physician Funeral Car Chauffeur 10/28/20 04/24/21 Demi Gonzalez MD [address] [place] [address] PCP - General Family Medicine 04/25/21 documented as of this encounter
--- OUTSIDE RECORDS SUMMARY | 2025-05-20 13:55 | XMS_ITS | Encounter Summary ---
Author Organization [facility] Address [address] [facility] [address] [place] [address] Care Team Providers Care Food Production Machine Operator Name Role Phone Sandoval Reese MD Primary Care Provider +- [phone] Sandoval Reese MD Primary Care Provider + [phone] Uche Bond Primary Care Provider [phone] Demi Gonzalez MD Primary Care Provider [phone] Encounter Details Date Type Department Care Team (Late st Contact Info) Description 08/13/2016 Orders Only Arrhythmia Center Provider, MD Jaydon [address] [place] [address] Social History Tobacco Use Types Packs/Day Years Used Date Smoking Tobacco: Never Alcohol Use Standard Drinks/Week Comments Yes 0 (1 standard drink = 0.6 oz pur e alcohol) Comments Unknown Sex and Gender Information Value Date Recorded Sex Assigned at Not on file 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 Gender Identity Female 04/12/2021 6:26 AM CDT [...] on filedocumented in this encounter Care Teams Food Production Machine Operator Relationship Specialty Start Date End Date Sandoval Reese MD [address] [place] [address] PCP - General 11/16/16 07/23/18 Sandoval Reese MD [address] [place] [address] PCP - General 07/25/16 11/15/16 Uche Bond PA [address] [place] [address] PCP - General Physician Sheet Rock Applicator 10/28/20 04/24/21 Demi Gonzalez MD [address] [place] [address] PCP - General Family Medicine 04/25/21 documented as of this encounter
--- OUTSIDE RECORDS SUMMARY | 2025-05-20 13:55 | XMS_ITS | Encounter Summary ---
Author Organization [facility] Address [address] [facility] [place] [place] [address] Care Team Providers Care Mill Oiler Name Role Phone Demi Gonzalez MD Primary Care Provider [phone] Encounter Details Date Type Department Care Team (Late st Contact Info) Description 01/12/2022 Lab Requisition [facility] Care Derm[facility] Lab [address] [place] [address] Christian Damico MD [address] [facility] [place] [address] Social History Tobacco Use Types Packs/Day Years [...] AM CDT) Case Report Dermatopathology Report Case: [id number] Authorizing Provider: Christian Damico MD Collected: 01/11/2022 12:00 AM Ordering Location: [facility] DermPath Lab Received: 01/12/2022 04:48 PM Pathologist: Shani Salazar MD Specimen: Skin, left 5th toe 4:11 PM CDT DERMATOPATHOLOGY LABORATORY Final Diagnosis Specimen A. SKIN, left 5th toe: HEMORRHAGE WITHIN THE CORNIFIED LAYER (CHANGES TYPICAL OF BLOOD BLISTER) (R23.3) (see microscopic description and comment) 2 4:11 PM CDT DERMATOPATHOLOGY LABORATORY at 1611 CDT Clinical History Nevus vs MM vs blood. Path # [id number]. 4:11 PM CDT DERMATOPATHOLOGY LABORATORY Gross Description Specimen A: Received is one formalin filled container labeled with the patient's name and designated left 5th toe. The specimen consists of a shave biopsy measuring [id number]. Jar 0. 4:11 PM CDT DERMATOPATHOLOGY LABORATORY Microscopic Description Specimen A. SKIN, left 5th toe: Sections show degraded red cells in the cornified layer. COMMENT: Given the superficial nature of the biopsy specimen, a deeper dermal process cannot be excluded. This case was also reviewed by Dr. Hayley Pichardo who agrees with the diagnosis. 4:11 PM CDT DERMATOPATHOLOGY LABORATORY Disclaimer An external and internal positive and negative controls are appropriate for the histochemical, immunohistochemical and immunofluorescence stain(s) in this case (if any), except where stated explicitly. The performance characteristics of the stain(s) cited in this report were developed and its performance characteristic determined by the Dermatopathology Laboratory at [facility], directed by Dr. Jacky Morales. These tests need not be, and therefore are not, approved by the [place] Food and Drug Administration. The tests are used for clinical purposes. Billing Codes Specimen Charges Stain Charges 22492 1 2 4:11 PM CDT DERMATOPATHOLOGY LABORATORY Embedded Images 4:11 PM CDT DERMATOPATHOLOGY LABORATORY Pathology/Cytolog y TISSUE SPECIMEN FROM SKIN / Unknown 01/11/2022 01/12/2022 4:48 PM CDT us Christian Damico MD LAB - PATHOLOGY/CYTOLOGY ORDER MOE Final Result DERMATOPATHOLOGY LABORATORY [facility] - Department of Dermatology [facility] Medicine [address] [place] [address], [address] [phone] documented in this encounter Visit Diagnoses Not on filedocumented in this encounter Care Teams Mill Oiler Relationship Specialty Start Date End Date Demi Gonzalez MD [address] [place] [address] PCP - General 09/25/22 documented as of this encounter
--- OUTSIDE RECORDS SUMMARY | 2025-05-20 13:55 | XMS_ITS | Encounter Summary ---
Author Organization [facility] Address [address] [facility] [address] [place] [address] Care Team Providers Care Access Control Officer Name Role Phone Sandoval Reese MD Primary Care Provider +- [phone] Sandoval Reese MD Primary Care Provider + [phone] Uche Bond Primary Care Provider [phone] Demi Gonzalez MD Primary Care Provider [phone] Encounter Details Date Type Department Care Team (Late st Contact Info) Description 10/22/2016 Orders Only Arrhythmia Center Provider, MD Jaydon [address] [place] [address] Social History Tobacco Use Types Packs/Day Years Used Date Smoking Tobacco: Never Alcohol Use Standard Drinks/Week Comments Yes 0 (1 standard drink = 0.6 oz pur e alcohol) Comments Unknown Sex and Gender Information Value Date Recorded Sex Assigned at Not on file 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 Sex Female 3:54 AM FLAVORER Gender Identity Female 04/12/2021 6:26 AM CDT [...] on filedocumented in this encounter Care Teams Access Control Officer Relationship Specialty Start Date End Date Sandoval Reese MD [address] [place] [address] PCP - General 11/16/16 07/23/18 Sandoval Reese MD [address] [place] [address] PCP - General 07/25/16 11/15/16 Uche Bond PA [address] [place] [address] PCP - General Physician Spanish Linguist 10/28/20 04/24/21 Demi Gonzalez MD [address] [place] [address] PCP - General Family Medicine 04/25/21 documented as of this encounter
--- OUTSIDE RECORDS SUMMARY | 2025-05-20 13:56 | XMS_ITS | Continuity of Care Document ---
Author Organization [facility] Address [address] [address] Insurance Providers Payer Plan Claims Address Claims Phone Policy Number Group Number Relation Employer Guarantor Name Guarantor Guarantor Address Guarantor Phone [employer] [address] [address], [place] [address] tel:[phone] Self Viry Lyons [address] [place] [address] [employer] [address], [place] [address] tel:[phone] Self Viyr Lyons 1945 [address] [place] [address] [employer] [address], [place] [address] tel:[phone] Self Viry Lyons 1945 [address] [place] [address] Problems Condition ICD9 code ICD10 code SNOMED code Start Date End Date S tatus Encounter for screening mammogram for malignant neoplasm of breast Z12.31 Results No Results Allergies, adverse reactions, alerts No known allergies and adverse reactions Medications No administered medications reported Vital Signs No vital signs reported Social History No smoking Hx information available
--- OUTSIDE RECORDS SUMMARY | 2025-05-20 13:56 | XMS_ITS | Clinical Summary ---
Author Organization [facility] [employer] Address [address] [facility] [place] [address] Care Team Providers Care Hide Spreader Name Role Phone Demi Gonzalez MD Primary Care Provider [phone] Allergies No known active allergies Medications amLODIPine (NORVASC) 2.5 mg tablet Take 1 Tablet by mouth daily. 03/31/2025 Active ferrous sulfate 325 mg (65 mg iron) tablet Take 1 Tablet by mouth daily. 03/10/2025 Active ezetimibe (ZETIA) 10 mg tablet Take 1 Tablet by mouth daily. 04/16/2025 Active lisinopriL (PRINIVIL) 40 mg tablet Take 1 Tablet by mouth daily. 03/08/2025 Active Xarelto 20 mg Tablet Take 1 Tablet by mouth daily. 04/19/2025 Active CALCIUM CITRATE-VITAMIN D3 ORAL Take by mouth. Active cyanocobalamin 1,000 mcg Tablet Take 1,000 mcg by mouth daily. Active Cholecalciferol, Vitamin D3, (VITAMIN D3) 10 mcg (400 unit) capsule Take 400 Units by mouth. Active multivitamin (DAILY-JUAREZ) tablet Take 1 Tablet by mouth daily. Active Active Problems No known active problems Encounters Date Type Department Care Team Description 05/20/2025 1:30 PM CDT Office Visit [facility] Oncology and Hematology - David [address] [place] [address] Nathanael Liu MD Chronic anemia (Primary Dx) from Last 3 Months Family History Medical History Relation Name Comments No Known Problems Brother No Known Problems Child 1 Diabetes Child 2 mass on brain Heart Disease Father Pancreatic Cancer Mother Relation Name Status Comments Brother Alive Child 1 Alive Child 2 Father Mother Social History Tobacco Use Types Packs/Day Years [...] Mass Index 30.48 05/20/2025 1:15 PM CDT Plan of Treatment Upcoming Encounters Date Type Department Care Team (Late st Contact Info) Description 06/02/2025 4:35 PM CDT Telephone Check Up [facility] Oncology and Hematology - David [address] [facility] [address] [place] [address] Nathanael Liu MD [address] [facility] [address] [place] [address] Health Maintenance Due Date Last Done Comments DTAP/TDAP/TD VACCINES (1 - Tdap) 04/19/2010 04/18/20 10 ZOSTER VACCINE (2 of 3) 06/14/2011 04/19/2011 OSTEOPOROSIS SCREENING 2012 PNEUMOCOCCAL VACCINE 50+ YEA RS (2 of 2 - PCV) 05/27/2018 05/27/2017, 06/08/2016 RSV VACCINE (60+ or ) (1 - 1-dose 75+ series) 2022 Medicare Advantage ([place]) Preventative Visit/Annual Wellness Visit 08/19/2024 INFLUENZA VACCINE (#1) 2025 2, 05/16/2021, 05/20/2020, Additional history exists Insurance [employer] PPO MCR Care Teams Hide Spreader Relationship Specialty Start Date End Date Demi Gonzalez MD [address] [place] [address] PCP - General Family Practice 05/20/25
--- OUTSIDE RECORDS SUMMARY | 2025-05-20 13:56 | XMS_ITS | Clinical Summary ---
Author Organization [facility] Address [address] [place] [address] Care Team Providers Care Electronic Assembler Group Leader Name Role Phone Demi Gonzalez MD Primary Care Provider [phone] Source Comments [facility],non-owned Affiliates and Associated Physician Practices is amultiple site organization consisting of ambulatory clinics and hospital sitesin [place], [place], [place] and [place]. This disclosure is being madepursuant to the Care Everywhere program and may not contain all information available regarding this patient. Last updated 18.[facility] Allergies No known active allergies Medications * [...] Recorded Patient Health Questionnaire-2 Score 0 09/08/2024 [facility] of Occupat ional Health - Occupational Stress [...] place to sleep or slept in a nursing home (including now)? No 09/02/2022 Comments No [...] yrs (1 - 1-dose 75+ series) 2022 MEDICARE AWV CALENDAR YEAR 2024 COVID-19 VACCINE ( season) 2025 05/14/2022, 01/08/2022, 05/16/2021, Additional history exists INFLUENZA VACCINE (#1) 2025 , 05/16/2021, 05/20/2020, Additional history exists DTAP/TDAP/TD VACCINES [...] this topic Medical Devices Implanted Type Area Farm Agent Device Identifier Shelf Expiration Date Model / Serial / Lot Nail Im 10mm 38cm Trgn Mt-Nail Fem Rtrgd Implanted:Qty: 1 on 09/03/2022 by Richard Tam MD at [facility] Left: Femur [employer] 11/22/2030 [id number] / / [id number] Screw 5mm 70mm Lopro Intnl Hex Fem Trgn Implanted:Qty: 1 on 09/03/2022 by Richard Tam MD at [facility] Left: Femur [employer] 09/29/2025 [id number] / / [id number] Screw 5mm 45mm Lopro Intnl Hex Fem Trgn Implanted:Qty: 1 on 09/03/2022 by Richard Tam MD at [facility] Left: Femur [employer] 03/27/2029 [id number] / / [id number] Screw 5mm 57mm Lopro Intnl Hex Fem Trgn Implanted:Qty: 1 on 09/03/2022 by Richard Tam MD at [facility] Left: Femur [employer] 07/24/2031 [id number] / / [id number] Screw 5mm 35mm Lopro Intnl Hex Fem Trgn Implanted:Qty: 1 on 09/03/2022 by Richard Tam MD at [facility] Left: Femur [employer] 02/12/2032 [id number] / / [id number] Explanted Type Area Farm Agent Device Identifier Shelf Expiration Date Model / Serial / Lot Screw 5mm 75mm Lopro Intnl Hex Fem Trgn Explanted:Qty : 1 on 09/03/2022 by Richard Tam MD at [facility] Left: Femur [employer] [id number] 09/30/2028 [id number] / / [id number] [place] [address] [address] AETNA MEDICARE ADV SELF PAY NO INSURANCE Member Subscriber Plan / Payer (Ef fective for All Dates) Name:Lauren Lyons Member ID:Not on file Relation to Subscriber:Not on file Name:LAUREN LYONS Subscriber ID:Not on file (Home) Address: [address] [place] [address] [place] [address] Payer ID:Not on file Group ID:Not on file Type:Self Pay Address: [place], [place] [address] Advance Directives * Full Code (Latest Code Status on File) Date Activated Date Inactivated Comments 12/10/2022 7:47 AM 12/10/2022 2:19 PM * Full Code Date Activated Date Inactivated Comments 09/02/2022 2:16 AM 09/19/2022 7:47 PM Care Teams Electronic Assembler Group Leader Relationship Specialty Start Date End Date Demi Gonzalez MD [address] [place] [address] PCP - General 09/25/22
--- OUTSIDE RECORDS SUMMARY | 2025-05-20 13:56 | XMS_ITS | Clinical Summary ---
Author Organization [facility] Address [address] [place] [address] Care Team Providers Care Ocean Freight Manager Name Role Phone Demi Gonzalez MD Primary Care Provider [phone] Allergies No known active allergies Medications ezetimibe (ZETIA) 10 mg tablet Take 1 tablet (10 mg total) by mouth daily Active lisinopriL (PRINIVIL,ZESTRI L) 40 mg tablet Take 1 tablet (40 mg total) by mouth daily Active rivaroxaban (Xarelto) 20 mg tablet Take 1 tablet (20 mg total) by mouth daily 30 tablet 2 02/23/2025 Active amLODIPine (NORVASC) 2.5 mg tablet Take 1 tablet (2.5 mg total) by mouth daily 03/31/2025 Active Active Problems Problem Noted Date Diagnosed [...] 03/13/21 for Afib, s/p AV node ablation. Fenglea Gilman Dyspnea 12/12/2018 Assessment & Plan (09/09/2019 2:07 PM AUTOMOTIVE DESIGNER): Improving with exercise No specific therapy needed Encouraged an exercise program to improve stamina and her functional capacity. Assessment & Plan (07/20/2019 2:51 PM AUTOMOTIVE DESIGNER): The differential diagnosis for dyspnea includes: - [...] an office visit and twelve- lead ECG. [facility] current use of antiarrhythmic drug Assessment & [...] 02/01/2017 Assessment & Plan (06/22/2020 2:10 PM AUTOMOTIVE DESIGNER): The patient has a NPL1JF8-FKDf score of 3 (annualized risk of stroke 3%). I have therefore recommended that she remain anticoagulated for thromboprophylaxis. We will see the patient back 1 month post cardioversion. Assessment & Plan (12/15/2019 1:11 PM CDT): The patient has a OGJ7OY7-CPOv score of 3 (annualized risk of stroke 3%). I have therefore recommended that she remain anticoagulated for thromboprophylaxis. The patient will follow-up with me in 6 months for an office visit and twelve- lead ECG. Assessment & Plan (12/12/2018 3:52 PM CDT): The patient has a RUC2WZ4-ZZVu score of 3 (annualized risk of stroke 3%). I have therefore recommended that she remain anticoagulated for thromboprophylaxis. Assessment & Plan (09/10/2018 2:06 PM AUTOMOTIVE DESIGNER): The patient has a IWH2RC7-FKCp score of 3 (annualized risk of stroke 3%). I have therefore recommended that she remain anticoagulated for thromboprophylaxis. The patient will follow-up with me in 6 months for an office visit and twelve- lead ECG. Assessment & Plan (08/05/2018 2:42 PM AUTOMOTIVE DESIGNER): The patient has a IBX8XG5-MDWq score of 3 (annualized risk of stroke 3%). I have therefore recommended that she remain anticoagulated for thromboprophylaxis. Assessment & Plan (03/08/2018 11:06 AM CDT): The patient has a HRH2JB5-MXMm score of 3 (annualized risk of stroke 3.2 %). I have therefore recommended that she remain anticoagulated for thromboprophylaxis. The patient will follow-up with me in 6 months for an office visit and twelve- lead ECG. Assessment & Plan (09/09/2017 12:39 PM AUTOMOTIVE DESIGNER): The patient has a ILF5JM7-AQWk score of 3 (annualized risk of stroke 3.2 %). I have therefore recommended that she remain anticoagulated for thromboprophylaxis. The patient will follow-up with me in 6 months for an office visit and twelve- lead ECG. Assessment & Plan (06/02/2017 2:56 PM CDT): The patient has a HMH2RL2-BCAw score of 3 (annualized risk of stroke 3.2 %). I have therefore recommended that she remain anticoagulated for thromboprophylaxis. The patient will follow-up with me in 6 months for an office visit and twelve- lead ECG. Assessment & Plan (04/04/2017 11:27 AM CDT): The patient has a ENK0XT4-XFTl score of 3 (annualized risk of stroke 3.2 %). I have therefore recommended that she remain anticoagulated. The patient will follow-up with me in 3 months for an office visit and twelve- lead ECG. Assessment & Plan (02/24/2017 2:32 PM CDT): The patient has a REP3OG8-FJYr score of 2 (annualized risk of stroke [...] 017 Assessment & Plan (06/22/2020 2:08 PM AUTOMOTIVE DESIGNER): 12-lead ECG today does not demonstrate any [...] toxicity. Assessment & Plan (09/10/2018 2:04 PM AUTOMOTIVE DESIGNER): 12-lead ECG today does not demonstrate any [...] Overview (11/23/2016): A Fib Assessment & Plan (05/06/2025 5:07 PM CDT): Longstanding persistent atrial fibrillation, rendered asymptomatic [...] checks when necessary. The patient has a TEN9ZY4-ZJYk score of 4 (annualized risk of stroke 4%). I have therefore recommended continued anticoagulation for thromboprophylaxis. If she is not eligible to continue anticoagulation, I would recommend consideration of PLAAO/C (Watchman, [employer]). The patient will follow-up with me in 12 months for an office visit and twelve- lead ECG. Assessment & Plan (04/16/2024 10:53 AM CDT): [...] checks when necessary. The patient has a EUB0PL8-MTZc score of 3 (annualized risk of stroke [...] checks when necessary. The patient has a KER9HR2-KTZi score of 4 (annualized risk of stroke 4%). I have therefore recommended continued anticoagulation for thromboprophylaxis. Assessment & Plan (04/15/2022 2:08 PM CDT): Persistent atrial fibrillation. Now status post LEASE ANALYST-pacemaker/AV junction ablation, and doing well. This [...] ECG. Assessment & Plan (06/22/2020 2:08 PM AUTOMOTIVE DESIGNER): Persistent atrial fibrillation, recurrent despite ablation and [...] medication. Assessment & Plan (09/10/2018 2:04 PM AUTOMOTIVE DESIGNER): The patient is 18 months status post repeat ablation for persistent atrial fibrillation/flutter. She is 1 month status post cardioversion. The patient is maintaining sinus rhythm with sotalol. We will continue to monitor and follow closely, and manage new / recurrent arrhythmia expectantly. Assessment & Plan (08/05/2018 2:39 PM AUTOMOTIVE DESIGNER): The patient is over a year status [...] expectantly. Assessment & Plan (09/09/2017 12:34 PM AUTOMOTIVE DESIGNER): The patient is 6 months status post [...] Encounters Date Type Department Care Team Description 05/06/2025 3:45 PM CDT Office Visit [facility] [address] [place] [address] [phone] William Serra MD Pacemaker (Primary Dx); Cardiac arrhythmia, unspecified cardiac arrhythmia type; Persistent atrial fibrillation (HCC) 05/06/2025 3:30 PM CDT Ancillary Procedure [facility] [address] [place] [address] [phone] Atrial fibrillation, unspecified type (HCC) (Primary Dx); Pacemaker 03/15/2025 5:15 PM CDT Ancillary Procedure [facility] [address] [place] [address] [phone] CHB (complete heart block) (HCC) 03/05/2025 Orders Only [facility] [address] [place] [address] [phone] William Serra MD Persistent atrial fibrillation (HCC) (Primary Dx) 02/23/2025 Telephone [facility] [address] [place] [address] [phone] William Serra MD Med Refill from Last 3 Months Surgical History Surgery [...] on file Legal Sex Female 3:54 AM AUTOMOTIVE DESIGNER Gender Identity Female 04/12/2021 6:26 AM CDT Sexual Orientation Straight 06/05/2019 7: 04 AM CDT Obstetrics History Last Filed Vital Signs Vital Sign Reading Time Taken Comments Blood Pressure 149/78 05/06/2025 3:14 PM CDT Pulse 63 05/06/2025 3:14 PM CDT Temperature 36.6 C (97.9 F) 03/14/2021 8:11 AM CDT Respiratory Rate 18 03/14/2021 8:11 AM CDT Oxygen Saturation 97% 04/11/2023 9:15 AM CDT Inhaled Oxygen Concentration - - Weight 79.8 kg (176 lb) 05/06/2025 3:14 PM CDT Height 162.6 cm (5' 4) 05/06/2025 3:14 PM CDT Body Mass Index 30.21 05/06/2025 3:14 PM CDT Plan of Treatment Health Maintenance Due Date Last Done Comments Depression Screening 1945 Hepatitis C Screening 1945 Osteoporosis Screening-Bone Density Scan 1945 Hepatitis B Screening 1965 Well Visit 65+ 2012 Pneumococcal vaccine 65+ (2 of 2 - PCV) 05/27/2018 05/27/2017, 06/08/2016 Zoster Vaccine (2 of 3) 08/18/2019 06/23/2019, 04/19 DTaP/Tdap/Td Vaccine (1 - Tdap) 12/01/2021 2, 04/18/2010 Fall Risk Assessment 03/14/2022 03/14/2021 Covid-19 Vaccine (5 - 2024-2 6 season) 2025 01/08/2022, 05/16/2021, 10/15/2020, Additional history exists Influenza Vaccine (#1) 2025 3, 05/16/2021, 05/20/2020, Additional history exists Medical Devices Implanted Type Area Trailers And Motor Homes Salesperson Device Identifier Shelf Expiration Date Model / Serial / Lot [employer] Inc [id number] System 6-12fr Mvp Venous Closure Vascade - [id number] - [id number] Implanted:Qty: 1 on 08/31/2020 by William Serra MD at [facility] Collagen Left: Groin [employer] Inc 06/15/2022 800-612C -10U / [id number] / [id number] [employer] Inc [id number] System 6-12fr Mvp Venous Closure Vascade - [id number] - [id number] Implanted:Qty: 1 on 08/31/2020 by William Serra MD at [facility] Collagen Right: Groin [employer] 06/15/2022 800-612C -10U / [id number] / [id number] [employer] Inc [id number] System 6-12fr Mvp Venous Closure Vascade - [id number] - [id number] Implanted:Qty: 1 on 08/31/2020 by William Serra MD at [facility] Collagen Right: Groin [employer] Inc 06/28/2022 800-612C -10U / [id number] / [id number] [employer] Inc [id number] System 6-12fr Mvp Venous Closure Vascade - [id number] - [id number] Implanted:Qty: 1 on 08/31/2020 by William Serra MD at [facility] Collagen Right: Groin [employer] Inc 06/28/2022 800-612C -10U / [id number] / [id number] Medtronic Inc [id number] Lead Attain Stability Quad Mri Surescan Lv 88mm - [id number] - [id number] Implanted:Qty: 1 on 03/13/2021 by William Serra MD at [facility] Lead Medtronic Inc [id number] 12/22/2022 [id number] 888 / [id number] / Medtronic Cardiac Rhythm Mgmt [id number] Capsurefix Novus 6.2fr 2mm 52cm Bipolar Screw In Implantable Latex Free - [id number] - [id number] Implanted:Qty: 1 on 03/13/2021 by William Serra MD at [facility] Lead Med[employer]onic Inc [id number] 01/06/2023 507 6-52 / [id number] / Medtronic Cardiac Rhythm Mgmt [id number] Solara Mri Surescan Bluetooth 46.5x59mm Connector Hole Radiopaque - [id number] - [id number] Implanted:Qty: 1 on 03/13/2021 by William Serra MD at [facility] Pacemaker Medtronic Inc [id number] 07/16/2022 W4T R03 / [id number] / Procedures Procedure Name Priority Date/Time Associated Diagnosis Comments ECG 12-LEAD Routine 05/06/2025 3:18 PM CDT Cardiac arrhythmia, unspecified cardiac arrhythmia type DEVICE CHECK - IN OFFICE Routine 05/06/2025 2:25 PM CDT Pacemaker DEVICE CHECK - REMOTE Routine 03/16/2025 3:11 PM CDT CHB (complete heart block) (HCC) from Last 3 Months Results * ECG 12 lead (05/06/2025 3:18 PM CDT) us William Serra MD ECG ORDERABLES Final R esult * DEVICE CHECK - IN OFFICE (05/06/2025 2:25 PM CDT) Anatomical Region Laterality Modality Other Narrative 05/09/2025 1:27 PM CDT Table formatting from the original result was not included. BiV PACEMAKER CHECK (IN OFFICE) Patient ID: Viry Lyons is a 79 y.o. female. This patient received a Medtronic BiV Pacemaker. They had a routine in office device interrogation on 05/06/25. Device implant indications: AF, status post AV node ablation Interrogation of the patient's device demonstrates the following: Presenting EGM: Bi V paced @ 68 bpm Underlying Rhythm: Paced at 50 Original Device Settings Right Ventricle Left Ventricle Sensitivity (mV) 1.2 mV N/a mV Pacemaker Outputs 2.0 V @ 0.4 ms 1.5 V @ 0.4 ms Testing Measurements Right Ventricle Left Ventricle Sensitivity (mV) Paced mV Not done mV Impedence (Ohms) 399 ohms 817 ohms Pace Threshold 0.625 V @ 0.4 ms 1.0 V @ 0.4 ms Pacing % 99.8 % 99.8 % Battery Status: 7.6 years to ASH Episodes last 90 days/Comments: 4 episodes of nonsustained VT with the longest lasting 4 seconds at 171 beats per minute NORMAL DEVICE FUNCTION PROGRAMMED MEDICATIONS: Anti-coagulant(s): Xarelto 20 mg daily Anti-arrhythmic(s): None PLAN: 1) Medtronic BiV Pacemaker evaluation 2) Medtronic remote transmission scheduled in 3 months. 3) Programming appropriate for device settings Hortencia Jeffrey RN William Serra MD [facility] PRO CEDURES Final Result * DEVICE CHECK - REMOTE (03/16/2025 3:11 PM CDT) Anatomical Region Laterality Modality Other Narrative 03/21/2025 2:11 PM CDT Table formatting from the original result was not included. BiV PACEMAKER CHECK (REMOTE) Patient ID: Viry Lyons is a 79 y.o. female. This patient received a Medtronic BiV Pacemaker. They had a routine remote transmission on 03/15/2025. Device implant indications: AF, s/p AVN Interrogation of the patient's device demonstrates the following: Presenting EGM: Bi V paced @ 65 bpm Original Device Settings Right Ventricle Left Ventricle Sensitivity (mV) 1.2 mV N/a mV Pacemaker Outputs 2.0 V @ 0.4 ms 1.75 V @ 0.4 ms Testing Measurements Right Ventricle Left Ventricle Sensitivity (mV) 4.0 mV N/a mV Impedence (Ohms) 399 ohms 798 ohms Pace Threshold 0.75 V @ 0.4 ms 1.125 V @ 0.4 ms Pacing % 99 % 99 % Battery Status: 7.6 years to ASH Episodes last 90 days/Comments: 7 VHR - EGMs demonstrate NSVT longest at 3 sec fastest at 225 bpm NORMAL DEVICE FUNCTION PROGRAMMED MEDICATIONS: Anti-coagulant(s): Xarelto 20 mg daily Anti-arrhythmic(s): None PLAN: 1) Medtronic BiV Pacemaker evaluation 2) Medtronic remote transmission scheduled in 3 months. 3) Programming appropriate for device settings Victorina Eastman RN us William Serra MD [facility] PRO CEDURES Final Result from Last 3 Months Insurance [facility] MEDICARE UHC MEDICARE ADVANTAGE AETNA MEDICARE T MEDICARE Advance Directives For more information, please contact: [phone] * Full Code (Latest Code Status on File) Date Activated Date Inactivated Comments 03/13/2021 9:08 PM 03/14/2021 3:24 PM * Full Code Date Activated Date Inactivated Comments 08/31/2020 5:59 PM 09/01/2020 2:40 PM Care Teams Ocean Freight Manager Relationship Specialty Start Date End Date Demi Gonzalez MD PCP - General Family Medicine 04/25/21
[2025-05-20 14:08] LABS: Hematocrit 40.5 % (37.0-47.0); Hemoglobin 13.0 g/dL (12.0-15.0); Immature Granulocyte Percent A 0.3 % (0-0.5); Lymphocytes Absolute Auto 1.37 K/mm3 (0.9-3.2); Mean Corpuscular HGB Conc 32.1 g/dl (32-36); Mean Corpuscular Hemoglobin 26.6 pg (26-34); Mean Corpuscular Volume 83.0 fl (80-100); Nucleated Red Blood Cells Absolute Auto 0.000 K/mm3 (0.0-0.012); Nucleated Red Blood Cells Perc 0.0 % (0.0-0.2); Platelet Count Result 256 k/mm3 (150-375); Red Blood Count 4.88 M/mm3 (4.2-5.4); White Blood Count 6.9 K/mm3 (4.5-10.0)
[2025-05-20 16:33] LABS: Alanine Aminotransferase 16 U/L (6-35); Albumin Level 4.5 g/dL (3.5-5.1); Alkaline Phosphatase 105 U/L (38-126); Anion Gap 9 mmol/L (4-12); Aspartate Amino Transferase 42 U/L (14-36); Bilirubin,Total 1.6 mg/dL (0.2-1.3); Blood Urea Nitrogen 13 mg/dL (7-17); Calcium 9.5 mg/dL (8.4-10.2); Carbon Dioxide 25 mmol/L (22-30); Chloride 100 mmol/L (98-107); Estimated Glomerular Filt Rate > 60; Glucose 91 mg/dL (65-110); Potassium 4.3 mmol/L (3.4-5.0); Sodium 134 mmol/L (137-145); Total Protein 8.0 g/dL (6.3-8.2)
[2025-05-20 16:40] LABS: Iron 202 ug/dL (37-170)
[2025-05-20 16:51] LABS: Percent Iron Saturation 52 % (20-50)
[2025-05-20 17:22] LABS: Ferritin 26.80 ng/mL (11.1-264)
[2025-05-20 17:44] LABS: Vitamin B12 535.0 pg/mL (239-931)
== END 2025-05-20 13:53 | disposition home or self-care (01) ==
LOC: ANHLAB 13:53
PROVIDERS: PCP Family Medicine; Visit Provider Internal Medicine Hematology & Oncology
DX: D64.9 Anemia, unspecified (principal)
CPT/HCPCS: 36415; 80053; 82607; 82728; 82746; 83540; 83550; 84238; 85025

== ENCOUNTER 2025-06-28 08:18 | Outpatient (CLI) | payer MEDICARE, SELFPAY ==
--- NOTE | ~2025-06-28 | MM_ITS ---
EXAMINATION: MM screening [facility] BI w guillermo HISTORY: Screening TECHNIQUE: Craniocaudal and mediolateral oblique 3-D tomosynthesis images were obtained and synthetic 2-D images were generated. CAD analysis was submitted and interpreted. COMPARISON: Comparison to multiple prior studies sequentially, with oldest reviewed study dated 04/13/2019. BREAST PARENCHYMAL COMPOSITION: Not dense: There are scattered areas of fibroglandular density. FINDINGS: There is no evidence of suspicious mass, calcification, or architectural distortion to suggest malignancy in either breast. There has been no suspicious interval change. IMPRESSION: 1. No mammographic evidence of malignancy. 2. Recommend routine screening mammography in one year. BI-RADS Category 1: Negative Reviewed, dictated and finalized at location B. 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
--- OUTSIDE RECORDS SUMMARY | 2025-06-28 08:25 | XMS_ITS | Encounter Summary ---
Author Organization [facility] Address [address] [facility] [address] [place] [address] Care Team Providers Care Allocations Clerk Name Role Phone Sandoval Reese MD Primary Care Provider [phone]- [phone] Sandoval Reese MD Primary Care Provider [phone] Uche Bond Primary Care Provider [phone] Demi Gonzalez MD Primary Care Provider [phone] Encounter Details Date Type Department Care Team (Late st Contact Info) Description 10/18/2016 Orders Only [facility] Provider, MD Jaydon [address] [place] [address] Social History Tobacco Use Types Packs/Day Years Used Date Smoking Tobacco: Never Alcohol Use Standard Drinks/Week Comments Yes 0 (1 standard drink = 0.6 oz pur e alcohol) Comments Unknown Sex and Gender Information Value Date Recorded Sex Assigned at Not on file Legal Sex Female 3:54 AM WINDOW UNIT AIR CONDITIONING MECHANIC Gender Identity Female 04/12/2021 6:26 AM CDT Sexual Orientation Straight 06/05/2019 7: 04 AM CDT documented as of this encounter Functional Status documented as of this encounter Plan of Treatment Not on file documented as of this encounter Procedures Procedure Name Priority Date/Time Associated Diagnosis Comments CARDIOLOGY REPORT 10/18/2016 documented in this encounter Results * CARDIOLOGY REPORT (10/18/2016) Anatomical Region Laterality Modality Other Narrative 10/18/2016 Ordered by an unspecified provider. us Historical Provider [facility] DEYA VAZ Final Result documented in this encounter Visit Diagnoses Not on filedocumented in this encounter Care Teams Allocations Clerk Relationship Specialty Start Date End Date Sandoval Reese MD [address] [place] [address] PCP - General 11/16/16 07/23/18 Sandoval Reese MD [address] [place] [address] PCP - General 07/25/16 11/15/16 Uche Bond PA [address] [place] [address] PCP - General Physician Cutter V Groove 10/28/20 04/24/21 Demi Gonzalez MD [address] [place] [address] PCP - General Family Medicine 04/25/21 documented as of this encounter
--- OUTSIDE RECORDS SUMMARY | 2025-06-28 08:25 | XMS_ITS | Encounter Summary ---
Author Organization [facility] Address [address] [place] [address] Care Team Providers Care Spar Cap Beveler Name Role Phone Demi Gonzalez MD Primary Care Provider [phone] Encounter Details Date Type Department Care Team (Late st Contact Info) Description 01/12/2022 Lab Requisition [facility] Care DermPath Lab [address] [place] [address] Christian Damico MD [address] [place] [address] Social History Tobacco Use Types Packs/Day Years [...] AM CDT) Case Report Dermatopathology Report Case: [id number] Authorizing Provider: Christian Damico MD Collected: 01/11/2022 12:00 AM Ordering Location: [facility] DermPath Lab Received: 01/12/2022 04:48 PM Pathologist: Shani Salazar MD Specimen: Skin, left 5th toe 4:11 PM CDT DERMATOPATHOLOGY LABORATORY Final Diagnosis Specimen A. SKIN, left 5th toe: HEMORRHAGE WITHIN THE CORNIFIED LAYER (CHANGES TYPICAL OF BLOOD BLISTER) (R23.3) (see microscopic description and comment) 2 4:11 PM CDT DERMATOPATHOLOGY LABORATORY at 1611 CDT Clinical History Nevus vs MM vs blood. Path # [id number]. 4:11 PM CDT DERMATOPATHOLOGY LABORATORY Gross Description Specimen A: Received is one formalin filled container labeled with the patient's name and designated left 5th toe. The specimen consists of a shave biopsy measuring [id number]. Jar 0. 4:11 PM CDT DERMATOPATHOLOGY LABORATORY [...] characteristic determined by the Dermatopathology Laboratory at [facility], directed by Dr. Jacky Morales. These tests need not be, and therefore are not, approved by the [place] Food and Drug Administration. The tests are used for clinical purposes. Billing Codes Specimen Charges Stain Charges 69839 1 2 4:11 PM CDT DERMATOPATHOLOGY LABORATORY Embedded Images 4:11 PM CDT DERMATOPATHOLOGY LABORATORY Pathology/Cytolog y TISSUE SPECIMEN FROM SKIN / Unknown 01/11/2022 01/12/2022 4:48 PM CDT us Christian Damico MD LAB - PATHOLOGY/CYTOLOGY ORDER MOE Final Result DERMATOPATHOLOGY LABORATORY [facility] - Department of Dermatology [facility] Medicine [address] [place] [address], [address] [phone] documented in this encounter Visit Diagnoses Not on filedocumented in this encounter Care Teams Spar Cap Beveler Relationship Specialty Start Date End Date Demi Gonzalez MD [address] [place] [address] PCP - General 09/25/22 documented as of this encounter
--- OUTSIDE RECORDS SUMMARY | 2025-06-28 08:26 | XMS_ITS | Encounter Summary ---
Author Organization [facility] Address [address] [facility] [address] [place] [address] Care Team Providers Care Rainbow Trout Farm Manager Name Role Phone Sandoval Reese MD Primary Care Provider [phone]- [phone] Sandoval Reese MD Primary Care Provider [phone]- [phone] Uche Bond Primary Care Provider [phone] Demi Gonzalez MD Primary Care Provider [phone] Encounter Details Date Type Department Care Team (Late st Contact Info) Description 10/22/2016 Orders Only [facility] Provider, MD Jaydon [address] [place] [address] Social History Tobacco Use Types Packs/Day Years Used Date Smoking Tobacco: Never Alcohol Use Standard Drinks/Week Comments Yes 0 (1 standard drink = 0.6 oz pur e alcohol) Comments Unknown Sex and Gender Information Value Date Recorded Sex Assigned at Not on file 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 us Historical Provider [facility] DEYA VAZ Final Result documented in this encounter Visit Diagnoses Not on filedocumented in this encounter Care Teams Rainbow Trout Farm Manager Relationship Specialty Start Date End Date Sandoval Reese MD [address] [place] [address] PCP - General 11/16/16 07/23/18 Sandoval Reese MD [address] [place] [address] PCP - General 07/25/16 11/15/16 Uche Bond PA [address] [place] [address] PCP - General Physician Pest Control Pilot 10/28/20 04/24/21 Demi Gonzalez MD [address] [place] [address] PCP - General Family Medicine 04/25/21 documented as of this encounter
--- OUTSIDE RECORDS SUMMARY | 2025-06-28 08:26 | XMS_ITS | Encounter Summary ---
Author Organization [facility] Medical [facility] Address [address] [facility] [address] [place] [address] Care Team Providers Care Oyster Grader Name Role Phone Sandoval Reese MD Primary Care Provider +- [phone] Sandoval Reese MD Primary Care Provider +- [phone] Uche Bond Primary Care Provider [phone] Demi Gonzalez MD Primary Care Provider [phone] Encounter Details Date Type Department Care Team (Late st Contact Info) Description 08/13/2016 Orders Only Arrhythmia Center Provider, MD Jaydon [address] [place] [address] Social History Tobacco Use Types Packs/Day Years Used Date Smoking Tobacco: Never Alcohol Use Standard Drinks/Week Comments Yes 0 (1 standard drink = 0.6 oz pur e alcohol) Comments Unknown Sex and Gender Information Value Date Recorded Sex Assigned at Not on file Legal Sex Female 3:54 AM 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
--- OUTSIDE RECORDS SUMMARY | 2025-06-28 08:26 | XMS_ITS | Clinical Summary ---
Author Organization [facility] Address [address] [place] [address] Care Team Providers Care Educational Consultant Name Role Phone Demi Gonzalez MD Primary Care Provider [phone] Allergies No known active allergies Medications ezetimibe (ZETIA) 10 mg tablet Take 1 tablet (10 mg total) by mouth daily Active lisinopriL (PRINIVIL,ZESTRI L) 40 mg tablet Take 1 tablet (40 mg total) by mouth daily Active amLODIPine (NORVASC) 2.5 mg tablet Take 1 tablet (2.5 mg total) by mouth daily 03/31/2025 Active Xarelto 20 mg tablet TAKE 1 TABLET BY MOUTH EVERY DAY 30 tablet 2 05/22/2025 Active Active Problems Problem Noted Date Diagnosed [...] 03/13/21 for Afib, s/p [facility] node [facility]/12[facility]2018 Assessment & Plan (09/09/2019 2:07 PM PAINT LINE OPERATOR): Improving with exercise No specific therapy needed Encouraged an exercise program to improve stamina and her functional capacity. Assessment & Plan (07/20/2019 2:51 PM PAINT LINE OPERATOR): The differential diagnosis for dyspnea includes: - [...] an office visit and twelve- lead ECG. snf current use of antiarrhythmic drug Assessment & [...] 02/01/2017 Assessment & Plan (06/22/2020 2:10 PM PAINT LINE OPERATOR): The patient has a XIE0OT7-WNXt score of 3 (annualized risk of stroke 3%). I have therefore recommended that she remain anticoagulated for thromboprophylaxis. We will see the patient back 1 month post cardioversion. Assessment & Plan (12/15/2019 1:11 PM CDT): The patient has a LQQ5NB3-GCTa score of 3 (annualized risk of stroke 3%). I have therefore recommended that she remain anticoagulated for thromboprophylaxis. The patient will follow-up with me in 6 months for an office visit and twelve- lead ECG. Assessment & Plan (12/12/2018 3:52 PM CDT): The patient has a FLM3ND4-DISh score of 3 (annualized risk of stroke 3%). I have therefore recommended that she remain anticoagulated for thromboprophylaxis. Assessment & Plan (09/10/2018 2:06 PM PAINT LINE OPERATOR): The patient has a HVX5KF1-TCGt score of 3 (annualized risk of stroke 3%). I have therefore recommended that she remain anticoagulated for thromboprophylaxis. The patient will follow-up with me in 6 months for an office visit and twelve- lead ECG. Assessment & Plan (08/05/2018 2:42 PM PAINT LINE OPERATOR): The patient has a IHB5UU3-LLIi score of 3 (annualized risk of stroke 3%). I have therefore recommended that she remain anticoagulated for thromboprophylaxis. Assessment & Plan (03/08/2018 11:06 AM CDT): The patient has a JXQ8SA0-NBOk score of 3 (annualized risk of stroke 3.2 %). I have therefore recommended that she remain anticoagulated for thromboprophylaxis. The patient will follow-up with me in 6 months for an office visit and twelve- lead ECG. Assessment & Plan (09/09/2017 12:39 PM PAINT LINE OPERATOR): The patient has a TBB9WH6-QFRy score of 3 (annualized risk of stroke 3.2 %). I have therefore recommended that she remain anticoagulated for thromboprophylaxis. The patient will follow-up with me in 6 months for an office visit and twelve- lead ECG. Assessment & Plan (06/02/2017 2:56 PM CDT): The patient has a EAU6ZE7-HVFd score of 3 (annualized risk of stroke 3.2 %). I have therefore recommended that she remain anticoagulated for thromboprophylaxis. The patient will follow-up with me in 6 months for an office visit and twelve- lead ECG. Assessment & Plan (04/04/2017 11:27 AM CDT): The patient has a SMW8KZ5-HQGx score of 3 (annualized risk of stroke 3.2 %). I have therefore recommended that she remain anticoagulated. The patient will follow-up with me in 3 months for an office visit and twelve- lead ECG. Assessment & Plan (02/24/2017 2:32 PM CDT): The patient has a KUJ4YD9-CYNy score of 2 (annualized risk of stroke [...] 017 Assessment & Plan (06/22/2020 2:08 PM PAINT LINE OPERATOR): 12-lead ECG today does not demonstrate any [...] toxicity. Assessment & Plan (09/10/2018 2:04 PM PAINT LINE OPERATOR): 12-lead ECG today does not demonstrate any [...] checks when necessary. The patient has a TEY8AN6-YVLf score of 4 (annualized risk of stroke 4%). I have therefore recommended continued anticoagulation for thromboprophylaxis. If she is not eligible to continue anticoagulation, I would recommend consideration of PLAAO/C ([employer], [employer]). The patient will follow-up with me [...] checks when necessary. The patient has a AIK8BK1-RUTu score of 3 (annualized risk of stroke [...] checks when necessary. The patient has a UKO4ZJ6-ZBPf score of 4 (annualized risk of stroke 4%). I have therefore recommended continued anticoagulation for thromboprophylaxis. Assessment & Plan (04/15/2022 2:08 PM CDT): Persistent atrial fibrillation. 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 This has [...] ECG. Assessment & Plan (06/22/2020 2:08 PM PAINT LINE OPERATOR): Persistent atrial fibrillation, recurrent despite ablation and [...] medication. Assessment & Plan (09/10/2018 2:04 PM PAINT LINE OPERATOR): The patient is 18 months status post repeat ablation for persistent atrial fibrillation/flutter. She is 1 month status post cardioversion. The patient is maintaining sinus rhythm with sotalol. We will continue to monitor and follow closely, and manage new / recurrent arrhythmia expectantly. Assessment & Plan (08/05/2018 2:39 PM PAINT LINE OPERATOR): The patient is over a year status [...] expectantly. Assessment & Plan (09/09/2017 12:34 PM PAINT LINE OPERATOR): The patient is 6 months status post [...] Encounters Date Type Department Care Team Description 06/21/2025 9:05 AM PAINT LINE OPERATOR Ancillary Procedure [facility] [address] [place] [id number] Persistent atrial fibrillation (HCC) 05/06/2025 3:45 PM CDT Office Visit [facility] Center [address] [place] [phone] William Serra MD Pacemaker (Primary Dx); Cardiac arrhythmia, unspecified cardiac arrhythmia type; Persistent atrial fibrillation (HCC) 05/06/2025 3:30 PM CDT Ancillary Procedure [facility] [address] [place] [phone] Atrial fibrillation, unspecified type (HCC) (Primary Dx); Pacemaker from Last 3 Months Surgical History Surgery [...] on file Legal Sex Female 3:54 AM PAINT LINE OPERATOR Gender Identity Female 04/12/2021 6:26 AM CDT [...] history exists Medical Devices Implanted Type Area Register In Chancery Device Identifier Shelf Expiration Date Model / Serial / Lot [employer] [id number] System 6-12fr Mvp Venous Closure Vascade - [id number] - [id number] Implanted:Qty: 1 on 08/31/2020 by William Serra MD at [facility] Collagen Left: Groin [employer]GreenWave [employer] Inc 06/15/2022 800-612C -10U / [id number] / [id number] Cardiva [employer] Inc [id number] System 6-12fr Mvp Venous Closure Vascade - [id number] - [id number] Implanted:Qty: 1 on 08/31/2020 by William Serra MD at [facility] Collagen Right: Groin [employer] 06/15/2022 800-612C -10U / [id number] / [id number] [employer] [id number]-[id number] System 6-12fr Mvp Venous Closure Vascade - [id number] - [id number] Implanted:Qty: 1 on 08/31/2020 by William Serra MD at [facility] Collagen Right: Groin [employer] 06/28/2022 800-612C -10U / [id number] 111B / [id number] [employer] Inc [id number] System 6-12fr Mvp Venous Closure Vascade - [id number] - [id number] Implanted:Qty: 1 on 08/31/2020 by William Serra MD at [facility] Collagen Right: Groin [employer] 06/28/2022 800-612C -10U / [id number] 111B / [id number] [id number] Medtronic Inc 193830 Lead Attain Stability Quad Mri Surescan Lv 88mm - [id number] - [id number] Implanted:Qty: 1 on 03/13/2021 by William Serra MD at [facility] Lead Medtronic Inc [id number] 12/22/2022 479 888 / [id number] / Medtronic Cardiac Rhythm Mgmt 5076-52 Capsurefix Novus 6.2fr 2mm 52cm Bipolar Screw In Implantable Latex Free - [id number] - [id number] Implanted:Qty: 1 on 03/13/2021 by William Serra MD at [facility] Lead Medtronic Inc [id number] 01/06/2023 507 6-52 / [id number] / Medtronic Cardiac Rhythm Mgmt [id number] Solara Mri Surescan Bluetooth 46.5x59mm Connector Hole Radiopaque - [id number] - [id number] Implanted:Qty: 1 on 03/13/2021 by William Serra MD at [facility] Pacemaker Medtronic Inc [id number] 07/16/2022 W4T R03 / [id number] / Procedures Procedure Name Priority Date/Time Associated Diagnosis Comments DEVICE CHECK - REMOTE Routine 06/21/2025 11:50 AM PAINT LINE OPERATOR Persistent atrial fibrillation (HCC) ECG 12-LEAD Routine 05/06/2025 3:18 PM CDT Cardiac arrhythmia, unspecified cardiac arrhythmia type DEVICE CHECK - IN OFFICE Routine 05/06/2025 2:25 PM CDT Pacemaker from Last 3 Months Results * DEVICE CHECK - REMOTE (06/21/2025 11:50 AM PAINT LINE OPERATOR) Anatomical Region Laterality Modality Other Narrative 06/23/2025 1:26 PM PAINT LINE OPERATOR Table formatting from the original result was not included. BiV PACEMAKER CHECK (REMOTE) Patient ID: Viry Lyons is a 79 y.o. female. This patient received a Medtronic BiV Pacemaker. They had a routine remote transmission on 06/21/2025. Device implant indications: AF, s/p AVN Interrogation of the patient's device demonstrates the following: Presenting EGM: Bi V pacing @ 85 bpm Original Device Settings Right Ventricle Left Ventricle Sensitivity (mV) 1.2 mV N/a mV Pacemaker Outputs 2.0 V @ 0.4 ms 1.5 V @ 0.4 ms Testing Measurements Right Ventricle Left Ventricle Sensitivity (mV) 4.3 mV N/a mV Impedence (Ohms) 399 ohms 836 ohms Pace Threshold 0.625 V @ 0.4 ms 1.00 V @ 0.4 ms Pacing % 99 % 99 % Battery Status: 7.5 years to ASH Episodes last 90 days/Comments: 2 VHR - NSVT longest at 1 sec at 240 bpm NORMAL DEVICE FUNCTION PROGRAMMED MEDICATIONS: Anti-coagulant(s): Xarelto 20 mg daily Anti-arrhythmic(s): Norvasc 2.5 mg daily PLAN: 1) Medtronic BiV Pacemaker evaluation 2) Medtronic remote transmission scheduled in 3 months. 3) Programming appropriate for device settings Victorina Eastman RN William Serra MD [facility] PRO CEDURES Final Result * ECG 12 lead (05/06/2025 3:18 PM [...] Final Result from Last 3 Months Insurance * Guarantor: Viry Lyons Account Type Relation to Patient Date of Phone Billing Address Personal/Family Self 1945 [address] [place] [address] [facility] MEDICARE [facility] MEDICARE [facility]ANTAGE [facility] AETNA MEDICARE Advance Directives For more information, please contact: [phone] * Full Code (Latest Code Status on File) Date Activated Date Inactivated Comments 03/13/2021 9:08 PM 03/14/2021 3:24 PM * Full Code Date Activated Date Inactivated Comments 08/31/2020 5:59 PM 09/01/2020 2:40 PM Care Teams Educational Consultant Relationship Specialty Start Date End Date Demi Gonzalez MD PCP - General Family Medicine 04/25/21
--- OUTSIDE RECORDS SUMMARY | 2025-06-28 08:26 | XMS_ITS | Clinical Summary ---
Author Organization [facility] Address [address] [facility] [place] [address] Care Team Providers Care Firm Administrator Name Role Phone Demi Gonzalez MD Primary Care Provider [phone] Source Comments [facility],non-owned Affiliates and Associated Physician Practices is amultiple site organization consisting of ambulatory clinics and hospital sitesin [place], [place], [place] and [place]. This disclosure is being madepursuant to the Care Everywhere program and may not contain all information available regarding this patient. Last updated 18.[facility] Allergies No known active allergies Medications * [...] Recorded Patient Health Questionnaire-2 Score 0 09/08/2024 [facility] Occupat ional Health - Occupational Stress [...] place to sleep or slept in a long-term (including now)? No 09/02/2022 Comments No Sex [...] this topic Medical Devices Implanted Type Area Motorcycle Repairer Device Identifier Shelf Expiration Date Model / Serial / Lot Nail Im 10mm 38cm Trgn Mt-Nail Fem Rtrgd Implanted:Qty: 1 on 09/03/2022 by Richard Tam MD at [facility] Left: Femur [employer] 11/22/2030 [id number] / / [id number] Screw 5mm 70mm Lopro Intnl Hex Fem Trgn Implanted:Qty: 1 on 09/03/2022 by Richard Tam MD at [facility] Left: Femur [employer] 09/29/2025 [id number] / / [id number] Screw 5mm 45mm Lopro Intnl Hex Fem Trgn Implanted:Qty: 1 on 09/03/2022 by Richard Tam MD at [facility] Left: Femur [employer] 03/27/2029 [id number] / / [id number] Screw 5mm 57mm Lopro Intnl Hex Fem Trgn Implanted:Qty: 1 on 09/03/2022 by Richard Tam MD at [facility] Left: Femur [employer] 07/24/2031 [id number] / / [id number] Screw 5mm 35mm Lopro Intnl Hex Fem Trgn Implanted:Qty: 1 on 09/03/2022 by Richard Tam MD at [facility] Left: Femur [employer] 02/12/2032 [id number] / / [id number] Explanted Type Area Motorcycle Repairer Device Identifier Shelf Expiration Date Model / Serial / Lot Screw 5mm 75mm Lopro Intnl Hex Fem Trgn Explanted:Qty : 1 on 09/03/2022 by Richard Tam MD at [facility] Left: Femur [employer] [id number] 09/30/2028 [id number] / / [id number] [place] [address] [place] [address] A[employer] MEDICARE ADV SELF PAY NO INSURANCE Member Subscriber Plan / Payer (Ef fective for All Dates) Name:Lauren Lyons Member ID:Not on file Relation to Subscriber:Not on file Name:LAUREN LYONS Subscriber ID:Not on file (Home) Address: [address] [place] [address] [place] [address] Payer ID:Not on file Group ID:Not on file Type:Self Pay Address: [place], [place] [address] Advance Directives * Full Code (Latest Code Status on File) Date Activated Date Inactivated Comments 12/10/2022 7:47 AM 12/10/2022 2:19 PM * Full Code Date Activated Date Inactivated Comments 09/02/2022 2:16 AM 09/19/2022 7:47 PM Care Teams Firm Administrator Relationship Specialty Start Date End Date Demi Gonzalez MD [address] [place] [address] PCP - General 09/25/22
--- OUTSIDE RECORDS SUMMARY | 2025-06-28 08:26 | XMS_ITS | Encounter Summary ---
Author Organization [facility] Medical [facility] Address [address] [facility] [address] [place] [address] Care Team Providers Care Peoplesoft Crm Developer Name Role Phone Sandoval Reese MD Primary Care Provider [phone]- [phone] Sandoval Reese MD Primary Care Provider [phone]- [phone] Uche Bond Primary Care Provider [phone] Demi Gonzalez MD Primary Care Provider [phone] Encounter Details Date Type Department Care Team (Late st Contact Info) Description 10/29/2016 Orders Only Arrhythmia Center Provider, MD Jaydon [address] [place] [address] Social History Tobacco Use Types Packs/Day Years Used Date Smoking Tobacco: Never Alcohol Use Standard Drinks/Week Comments Yes 0 (1 standard drink = 0.6 oz pur e alcohol) Comments Unknown Sex and Gender Information Value Date Recorded Sex Assigned at Not on file Legal Sex Female 3:54 AM SOLAR SITE ASSESSMENT SPECIALIST Gender Identity Female 04/12/2021 6:26 AM CDT [...] Narrative 10/29/2016 Ordered by an unspecified provider. us Historical Provider [facility] DE[facility] VA[facility] Final Result documented in this encounter Visit Diagnoses Not on filedocumented in this encounter Care Teams Peoplesoft Crm Developer Relationship Specialty Start Date End Date Sandoval Reese MD [address] [place] [address] PCP - General 11/16/16 07/23/18 Sandoval Reese MD [address] [place] [address] PCP - General 07/25/16 11/15/16 Uche Bond PA [address] [place] [address] PCP - General Physician Advisory Internship 10/28/20 04/24/21 Demi Gonzalez MD [address] [place] [address] PCP - General Family Medicine 04/25/21 documented as of this encounter
--- OUTSIDE RECORDS SUMMARY | 2025-06-28 08:26 | XMS_ITS | Clinical Summary ---
Author Organization [facility] Zacarias daily Rosalind Address [address] [place] [address] Care Team Providers Care Tow Feeder Name Role Phone Demi Gonzalez MD Primary Care Provider [phone] Allergies No known active allergies Medications amLODIPine [...] Encounters Date Type Department Care Team Description 06/09/2025 External Device Data STL ABSTRACTION Provider, Abstract 06/02/2025 4:35 PM CDT Telephone Check Up [facility] Oncology and Hematology - [place] [address] [place] [address] Nathanael Liu MD Chronic anemia (Primary Dx) 05/31/2025 Orders Only [facility] [address] [place] [address] Nathanael Liu MD 05/27/2025 Orders Only [facility] [address] [place] [address] Nathanael Liu MD 05/25/2025 External Device Data STL ABSTRACTION Provider, Abstract 05/25/2025 External Device Data STL ABSTRACTION Provider, Abstract 05/25/2025 External Device Data STL ABSTRACTION Provider, Abstract 05/21/2025 Orders Only [facility] [address] [place] [address] Nathanael Liu MD 05/20/2025 1:30 PM CDT Office Visit [facility] Oncology and Hematology [facility] [address] [place] [address] Nathanael Liu MD Chronic anemia (Primary Dx) [...] Care Team (Late st Contact Info) Description 09/09/2025 2:15 PM INCLUSION MANAGER Office Visit [facility] Oncology [facility] Hematology - [address] [facility] [address] [place] [address] Nathanael Liu MD [address] [facility] [address] [place] [address] Health Maintenance Due Date Last Done Comments DTAP/TDAP/TD VACCINES (1 - Tdap) 04/19/2010 04/18/20 10 ZOSTER VACCINE (2 of 3) 06/14/2011 04/19/2011 OSTEOPOROSIS SCREENING 2012 PNEUMOCOCCAL VACCINE 50+ YEA RS (2 of 2 - PCV) 05/27/2018 05/27/2017, 06/08/2016 RSV VACCINE (60+ or ) (1 - 1-dose 75+ series) 2022 INFLUENZA VACCINE (#1) 2025 2, 05/16/2021, 05/20/2020, Additional history exists Procedures Procedure Name Priority Date/Time Associated Diagnosis Comments VITAMIN B12 AND FOLATE Routine 9:17 AM CDT Chronic anemia TRANSFERRIN RECEPTOR TFR SOLUBLE Routine 06/01/2025 9:17 AM CDT Chronic anemia METHYLMALONIC ACID Routine 06/01/2025 9: 17 AM CDT Chronic anemia IRON, TIBC, AND PERCENT SATURATION Routine 06/01/2025 9:17 AM CDT Chronic anemia FERRITIN Routine 06/01/2025 9:17 AM CDT Chronic anemia COMPREHENSIVE METABOLIC PANEL Routine 05/20/2025 3:04 PM CDT METHYLMALONIC ACID Routine 05/20/2025 2: 55 PM CDT CBC WITH AUTODIFFERENTIAL Routine 05/20/2025 1:08 PM CDT CHG SOLUBLE TRANSFERRIN RECEPTOR Routine 05/20/2025 12:51 PM CDT from Last 3 Months Results * VITAMIN B12 AND FOLATE (06/01/2025 9:17 AM CDT) Pathologist [facility] VITAMIN B12 595 200 - 1100 pg/mL [facility] FOLATE, SERUM 23.7 ng/mL [facility] Comment: Reference Range Low: <3.4 Borderline: 3.4-5.4 Normal: >5.4 FASTING:YES FASTING: YES Test Performed at: [facility] [address] [place] [address] Nusrat Gresham MD Blood 06/01/2025 9:17 AM CDT 06/01/2025 9:18 AM CDT us Nathanael Liu MD CHEMISTRY ORDERABLES Final Resu lt Performing Organization Address City/[facility]/ZIP Co de Phone Number [facility] [phone] [facility] [address] [place] [address] * TRANSFERRIN RECEPTOR TFR SOLUBLE (06/01/2025 9:17 AM CDT) Pathologist [facility] TRANSFERRIN RECEPTOR TFR SOLUBLE 1.23 0.76 - 1.76 mg/L [facility]helsy [facility]ine [facility], Comment: FASTING:YES FASTING: YES Test Performed at: [facility] [facility], [address] [place] [address] Bea Willis MD,PhD,SARAH Blood 06/01/2025 9:17 AM CDT 06/01/2025 9:18 AM CDT Nathanael Liu MD CHEMISTRY ORDERABLES Final Resu lt [facility] [phone] [facility], [address] [place] [address] * METHYLMALONIC ACID (06/01/2025 9:17 AM CDT) Only the most recent of2 resultswithin the time period is included. Pathologist [facility] METHYLMALONIC ACID 97 69 - 390 nmol/L [facility] Comment: See Note 1 Serum methylmalonic acid (MMA) levels are used to diagnose and monitor several rare inborn errors of metabolism, including methylmalonic aciduria. The enzymatic conversion of MMA to succinic acid requires vitamin B12 (adenosyl-cobalamin) as a cofactor. Serum MMA levels are also used for assessing functional vitamin B12 deficiency. Vitamin B12 is essential for neurodevelopment, particularly early in . Undiagnosed maternal vitamin B12 deficiency may be associated with adverse / outcomes, such as neural tube defects and intrauterine growth restriction. [facility] utilized Multi-Modal Decomposition (MMD) analysis to establish first and second trimester-specific MMA reference intervals in , as given below: MMA, First trimester (<13 wks gestation): 58-167 nmol/L MMA, Second trimester (13-23 wks gestation): 63-241 nmol/L Note 1 This test was developed and its analytical performance characteristics have been determined by [facility]. It has not been cleared or approved by the FDA. This assay has been validated pursuant to the CLIA regulations and is used for clinical purposes. FASTING:YES FASTING: YES Test Performed at: [facility] [address] [place] Flores Blood 06/01/2025 9:17 AM CDT 06/01/2025 9:18 AM CDT us Nathanael Liu MD CHEMISTRY ORDERABLES Final Resu lt [facility] [phone] [facility] [address] [place] [address] * IRON, TIBC, AND PERCENT SATURATION (06/01/2025 9:17 AM CDT) Pathologist [facility] IRON 78 45 - 160 mcg/dL [facility] TIBC 383 250 - 450 mcg/dL (calc) [facility] IRON % SATURATION 20 16 - 45 % (calc) [facility] Comment: FASTING:YES FASTING: YES Test Performed at: [facility] [address] Nusrat Gresham MD Blood 06/01/2025 9:17 AM CDT 06/01/2025 9:18 AM CDT Nathanael Liu MD CHEMISTRY ORDERABLES Final Resu lt Performing Organization Address City/[facility]/ZIP Co de Phone Number [facility] [phone] [facility] [address] * FERRITIN (06/01/2025 9:17 AM CDT) FERRITIN 33 16 - 288 ng/mL [facility] Comment: Test Performed at: [facility] [address] PaytonChelsey Gresham MD Blood 06/01/2025 9:17 AM CDT 06/01/2025 9:18 AM CDT Result [facility] Nathanael Liu MD CHEMISTRY ORDERABLES Final Resu lt Performing Organization Address City/[facility]/ZIP Co de Phone Number [facility] [phone] [facility] [address] * COMPREHENSIVE METABOLIC PANEL (05/20/2025 3:04 PM CDT) Blood Nathanael Liu MD CHEMISTRY ORDERABLES Final Resu lt * CBC WITH AUTODIFFERENTIAL (05/20/2025 1:08 PM CDT) Blood Nathanael Liu MD HEMATOLOGY ORDERABLES Final Res ult * CHG SOLUBLE TRANSFERRIN RECEPTOR (05/20/2025 12:51 PM CDT) Nathanael Liu MD [facility] - LABORATORY Final Result from Last 3 Months Insurance [employer] PPO MCR Care Teams Tow Feeder Relationship Specialty Start Date End Date Demi Gonzalez MD [address] [place] [phone] PCP - General Family Practice 05/20/25
== END 2025-06-28 08:19 | disposition home or self-care (01) ==
LOC: ANHFOHIMG 08:20
PROVIDERS: PCP Family Medicine Adolescent Medicine; Visit Provider Family Medicine
DX: Z12.31 Encounter for screening mammogram for malignant neoplasm of breast (principal)
CPT/HCPCS: 77063; 77067